=== PATIENT | female | born 1945 | race Caucasian/White ===

== ENCOUNTER 2021-12-16 16:02 | Inpatient (IN) ==
--- NOTE | 2021-12-16 16:28 | Emergency Department Note ---
Impression & Plan Acute confusion, Acute UTI (urinary tract infection) ED Provider Note HISTORY OF PRESENT ILLNESS: Patient is a 76-year-old female presenting with confusion. Patient presents from a personal [facility] living where today she was reportedly difficult to arouse. She from a few days ago and was evaluated and cleared for discharge back to her facility. No reported falls in the last 24 hours. No recent fevers. Patient reportedly is much more confused than her normal self. She denies any chest pain, shortness of breath, nausea or vomiting. ROS: Patient currently confused and is unable to provide accurate information regarding ROS, histories, meds, or allergies. Any information regarding ROS, Past medical or surgical history, social or family history documented below has been obtained from the EMR. Any additional history regarding this cannot be obtained presently due to her medical condition. PHYSICAL EXAM: Constitutional: Patient appears in no acutedistress. HENT: Head: Normocephalic. Ecchymosis to lower lip and chin. Eyes: EOMI, PERRL Mouth/Throat: Mucous membranes moist. Neck: Trachea midline. Neck supple. Cardiovascular: Bradycardic with regular rhythm. No murmurs, rubs or gallops. Intact distal pulses. Pulmonary/Chest: No respiratory distress. Breath sounds clear and equal bilaterally. No wheezes or rales. No chest wall tenderness to palpation. Abdominal: BS +. Abdomen soft, no tenderness, rebound or guarding. Back: No midline spinal tenderness, no paraspinal tenderness, no CVA tenderness. Musculoskeletal: No edema, tenderness or deformity noted. Skin: Warm and dry. No rash, erythema, pallor or cyanosis Psychiatric: Appropriate mood and affect for situation. Neurological: Alert. CN II-XII grossly intact, moving all extremities s pontaneously. MDM: - Vitals signs showed bradycardia. - EKG negative for acute ischemic changes. Shows sinus bradycardia. - Laboratory workup showed leukocytosis (WBC 10.85); stable electrolytes other than hypomagnesemia (Mg 1.5) - UA shows evidence of infection. IV rocephin ordered. - Blood cultures obtained. - CXR negative for acute cardiopulmonary pathology. - [facility] - [facility] ASSESSMENT AND PLAN: Diagnosis: confusion; UTI Plan: admit Past Med/Surg History Social History Smoking Status: Never smoker Allergies Allergies Allergy/AdvReac Type Severity Reaction Status Date / Time latex Allergy Unknown ? Unverified 02/24/21 21:44 hydrocodone AdvReac Mild HALLUCINATI Verified 02/24/21 21:44 ONS Home Meds Home Medications Medication Instructions Recorded Confirmed acetaminophen 650 mg 1,300 mg PO Q8H PRN Pain 12/16/21 12/16/21 tablet,extended release (Arthritis Pain Relief (acetaminophen) ER) aspirin 81 mg tablet,delayed 81 mg PO DAILY 12/16/21 12/16/21 release cetirizine 10 mg tablet 10 mg PO BID 12/16/21 12/16/21 cholecalciferol (vitamin D3) 50 50 mcg PO DAILY 12/16/21 12/16/21 mcg (2,000 unit) tablet (Vitamin D3) clopidogrel 75 mg tablet 75 mg PO DAILY 12/16/21 12/16/21 donepezil 10 mg tablet 10 mg PO DAILY 12/16/21 12/16/21 duloxetine 60 mg capsule,delayed 60 mg PO DAILY 12/16/21 12/16/21 release ezetimibe 10 mg tablet 10 mg PO DAILY 12/16/21 12/16/21 glimepiride 1 mg tablet 1 mg PO DAILY 12/16/21 12/16/21 lisinopril 10 mg tablet 10 mg PO DAILY 12/16/21 12/16/21 melatonin 10 mg sublingual tablet 10 mg sublingual HS 12/16/21 12/16/21 metoprolol succinate 25 mg 25 mg PO DAILY 12/16/21 12/16/21 tablet,extended release 24 hr nitrofurantoin macrocrystal 50 mg 50 mg PO DAILY 12/16/21 12/16/21 capsule oxybutynin chloride 5 mg tablet 5 mg PO DAILY 12/16/21 12/16/21 pantoprazole 40 mg tablet,delayed 40 mg PO DAILY 12/16/21 12/16/21 release pioglitazone 45 mg tablet 45 mg PO DAILY 12/16/21 12/16/21 pravastatin 10 mg tablet 10 mg PO DAILY 12/16/21 12/16/21 Results & Data (ED) Vital Signs Vital Signs - 24 hr 12/16/21 15:57 12/16/21 16:24 12/16/21 16:24 Temperature 36.6 C 36.8 C Temperature Source Oral Oral Pulse Rate 57 L Pulse Rate [Finger] 47 L Pulse Rate from SpO2 Sensor Pulse Rhythm Irregular Pulse Rhythm [Finger] Irregular Pulse Strength Normal Pulse Strength [Finger] Normal Respiratory Rate 19 19 18 Respiratory Effort / Characteristics Non-Labored Spontaneous Respiratory Depth Normal Respiratory Pattern Regular Blood Pressure 181/84 H Blood Pressure [Left Arm] Blood Pressure Mean 116 Blood Pressure Mean [Left Arm] Pulse Oximetry 97 97 97 Oxygen Delivery Method Room Air Room Air Sepsis New/Unexplained Change in Mental Status Yes Sepsis Action Taken by Nursing No Action Required 12/16/21 17:20 12/16/21 18:30 12/16/21 18:45 Temperature Temperature Source Pulse Rate Pulse Rate [Finger] 59 L 67 67 Pulse Rate from SpO2 Sensor Pulse Rhythm Pulse Rhythm [Finger] Irregular Irregular Pulse Strength Pulse Strength [Finger] Respiratory Rate 17 17 17 Respiratory Effort / Characteristics Respiratory Depth Normal Normal Respiratory Pattern Blood Pressure Blood Pressure [Left Arm] 191/102 H 169/98 H Blood Pressure Mean Blood Pressure Mean [Left Arm] 131 121 Pulse Oximetry 98 94 95 Oxygen Delivery Method Sepsis New/Unexplained Change in Mental Status Sepsis Action Taken by Nursing 12/16/21 16:17 12/16/21 16:30 12/16/21 16:45 Temperature Temperature Source Pulse Rate 47 L 51 L 52 L Pulse Rate [Finger] Pulse Rate from SpO2 Sensor Pulse Rhythm Pulse Rhythm [Finger] Pulse Strength Pulse Strength [Finger] Respiratory Rate 20 19 14 Respiratory Effort / Characteristics Respiratory Depth Respiratory Pattern Blood Pressure Blood Pressure [Left Arm] Blood Pressure Mean Blood Pressure Mean [Left Arm] Pulse Oximetry 97 97 Oxygen Delivery Method Sepsis New/Unexplained Change in Mental Status Sepsis Action Taken by Nursing 12/16/21 17:00 12/16/21 17:15 12/16/21 17:15 Temperature Temperature Source Pulse Rate 53 L 64 Pulse Rate [Finger] Pulse Rate from SpO2 Sensor 57 L Pulse Rhythm Pulse Rhythm [Finger] Pulse Strength Pulse Strength [Finger] Respiratory Rate Respiratory Effort / Characteristics Respiratory Depth Respiratory Pattern Blood Pressure 191/102 H Blood Pressure [Left Arm] Blood Pressure Mean 131 Blood Pressure Mean [Left Arm] Pulse Oximetry 94 Oxygen Delivery Method Sepsis New/Unexplained Change in Mental Status Sepsis Action Taken by Nursing 12/16/21 17:30 12/16/21 17:31 12/16/21 17:31 Temperature Temperature Source Pulse Rate 60 60 Pulse Rate [Finger] Pulse Rate from SpO2 Sensor Pulse Rhythm Pulse Rhythm [Finger] Pulse Strength Pulse Strength [Finger] Respiratory Rate Respiratory Effort / Characteristics Respiratory Depth Respiratory Pattern Blood Pressure 169/77 H Blood Pressure [Left Arm] Blood Pressure Mean 107 Blood Pressure Mean [Left Arm] Pulse Oximetry Oxygen Delivery Method Sepsis New/Unexplained Change in Mental Status Sepsis Action Taken by Nursing 12/16/21 17:45 12/16/21 17:45 12/16/21 18:00 Temperature Temperature Source Pulse Rate 76 Pulse Rate [Finger] Pulse Rate from SpO2 Sensor Pulse Rhythm Pulse Rhythm [Finger] Pulse Strength Pulse Strength [Finger] Respiratory Rate Respiratory Effort / Characteristics Respiratory Depth Respiratory Pattern Blood Pressure 169/88 H 154/84 H Blood Pressure [Left Arm] Blood Pressure Mean 115 107 Blood Pressure Mean [Left Arm] Pulse Oximetry Oxygen Delivery Method Sepsis New/Unexplained Change in Mental Status Sepsis Action Taken by Nursing 12/16/21 18:00 12/16/21 18:15 12/16/21 18:17 Temperature Temperature Source Pulse Rate 60 68 Pulse Rate [Finger] Pulse Rate from SpO2 Sensor Pulse Rhythm Pulse Rhythm [Finger] Pulse Strength Pulse Strength [Finger] Respiratory Rate Respiratory Effort / Characteristics Respiratory Depth Respiratory Pattern Blood Pressure 184/93 H Blood Pressure [Left Arm] Blood Pressure Mean 123 Blood Pressure Mean [Left Arm] Pulse Oximetry 97 Oxygen Delivery Method Sepsis New/Unexplained Change in Mental Status Sepsis Action Taken by Nursing 12/16/21 18:17 12/16/21 18:30 12/16/21 18:31 Temperature Temperature Source Pulse Rate 60 63 Pulse Rate [Finger] Pulse Rate from SpO2 Sensor 50 L Pulse Rhythm Pulse Rhythm [Finger] Pulse Strength Pulse Strength [Finger] Respiratory Rate Respiratory Effort / Characteristics Respiratory Depth Respiratory Pattern Blood Pressure 174/65 H Blood Pressure [Left Arm] Blood Pressure Mean 101 Blood Pressure Mean [Left Arm] Pulse Oximetry 94 Oxygen Delivery Method Sepsis New/Unexplained Change in Mental Status Sepsis Action Taken by Nursing 12/16/21 18:31 12/16/21 18:45 12/16/21 18:46 Temperature Temperature Source Pulse Rate 63 60 66 Pulse Rate [Finger] Pulse Rate from SpO2 Sensor Pulse Rhythm Pulse Rhythm [Finger] Pulse Strength Pulse Strength [Finger] Respiratory Rate Respiratory Effort / Characteristics Respiratory Depth Respiratory Pattern Blood Pressure Blood Pressure [Left Arm] Blood Pressure Mean Blood Pressure Mean [Left Arm] Pulse Oximetry Oxygen Delivery Method Sepsis New/Unexplained Change in Mental Status Sepsis Action Taken by Nursing 12/16/21 18:46 12/16/21 19:00 12/16/21 20:05 Temperature Temperature Source Pulse Rate Pulse Rate [Finger] 55 L 57 L Pulse Rate from SpO2 Sensor Pulse Rhythm Pulse Rhythm [Finger] Irregular Pulse Strength Pulse Strength [Finger] Respiratory Rate 19 17 Respiratory Effort / Characteristics Non-Labored Spontaneous Respiratory Depth Normal Respiratory Pattern Blood Pressure 169/98 H Blood Pressure [Left Arm] 164/67 H Blood Pressure Mean 121 Blood Pressure Mean [Left Arm] 99 Pulse Oximetry 98 95 97 Oxygen Delivery Method Room Air Sepsis New/Unexplained Change in Mental Status Sepsis Action Taken by Nursing Laboratory Data Result diagrams: 12/16/21 16:49 12/16/21 16:49 Lab Results 12/16/21 12/16/21 12/16/21 Range/Units 16:30 16:49 16:49 WBC 10.85 H (4.8-10.8) K/ul RBC 3.66 L (3.93-5.22) M/uL Hgb 11.2 L (12.0-16.0) g/dl Hct 34.5 (34.1-44.9) % MCV 94.3 (80.0-100.0) fL MCH 30.6 (25.0-34.0) pg MCHC 32.5 (32.0-36.0) g/dL RDW Std Deviation 46.7 H (36.4-46.3) fL RDW Coeff of Elina 13.6 (11.5-14.5) % Plt Count 290 (130-400) K/uL MPV 8.8 L (9.4-12.3) fL Immature Gran % (Auto) 0.5 % Neut % (Auto) 55.7 % Lymph % (Auto) 34.2 % Mathews % (Auto) 7.7 % Eos % (Auto) 1.4 % Baso % (Auto) 0.5 % Neut # (Auto) 6.05 (1.4-6.5) K/uL Lymph # (Auto) 3.71 H (1.2-3.4) K/uL Mathews # (Auto) 0.84 H (0.24-0.82) K/uL Eos # (Auto) 0.15 (0-0.50) K/uL Baso # (Auto) 0.05 (0-0.2) K/uL Immature Gran # (Auto) 0.05 H (0.00-0.02) K/uL Sodium 138 (136-145) mmol/L Potassium 3.9 (3.5-5.1) mmol/L Chloride 106 (98-107) mmol/L Carbon Dioxide 24 (21-32) mmol/L Anion Gap 8 (3-11) BUN 20 (6-23) mg/dl Creatinine 1.08 (0.6-1.2) mg/dl Est Cr Clr Drug Dosing 38.3 ml/min Est GFR ( Amer) 57.7 ml/min Est GFR (Non-Af Amer) 49.8 ml/min BUN/Creatinine Ratio 18.5 (10-20) Glucose 87 (70-99(Fasting)) mg/dl Lactate (0.4-2.0) mmol/L Calcium 9.3 (8.5-10.1) mg/dl Magnesium 1.5 L (1.7-2.4) mg/dl Total Bilirubin 1.0 (0.2-1.0) mg/dl Direct Bilirubin 0.2 (0-0.2) mg/dl AST 11 L (13-39) U/L ALT 6 L (7-52) U/L Alkaline Phosphatase 65 (34-104) U/L Troponin I High Sens 5.4 (0-14) pg/ml Total Protein 6.9 (6.0-8.3) gm/dl Albumin 3.4 (3.4-5.0) gm/dl Urine Color Yellow Urine Appearance Clear (Clear) Urine pH 8.5 H (4.5-7.5) Ur Specific [place] 1.016 (1.000-1.030) Urine Protein Negative (Negative) Urine Glucose (UA) Negative (Negative) Urine Ketones Trace H (Negative) Urine Blood Negative (Negative) Urine Nitrite Positive A (Negative) Urine Bilirubin Negative (Negative) Urine Urobilinogen Negative (Negative) Ur Leukocyte Esterase Negative (Negative) Urine WBC (Auto) 1-5 (0-5) /hpf Urine RBC (Auto) 0-4 (0-4) /hpf U Hyaline Cast (Auto) 1-5 (0-5) /lpf U Epithel Cells (Auto) 10-20 H (0-5) /lpf Urine Bacteria (Auto) 4+ H (Negative) SARS-CoV-2 (PCR) (Negative) Influenza Type A (PCR) (Neg) Influenza Type B (PCR) (Neg) RSV (RT-PCR) (Neg) 12/16/21 12/16/21 Range/Units 16:49 16:52 WBC (4.8-10.8) K/ul RBC (3.93-5.22) M/uL Hgb (12.0-16.0) g/dl Hct (34.1-44.9) % MCV (80.0-100.0) fL MCH (25.0-34.0) pg MCHC (32.0-36.0) g/dL RDW Std Deviation (36.4-46.3) fL RDW Coeff of Elina (11.5-14.5) % Plt Count (130-400) K/uL MPV (9.4-12.3) fL Immature Gran % (Auto) % Neut % (Auto) % Lymph % (Auto) % Mathews % (Auto) % Eos % (Auto) % Baso % (Auto) % Neut # (Auto) (1.4-6.5) K/uL Lymph # (Auto) (1.2-3.4) K/uL Mathews # (Auto) (0.24-0.82) K/uL Eos # (Auto) (0-0.50) K/uL Baso # (Auto) (0-0.2) K/uL Immature Gran # (Auto) (0.00-0.02) K/uL Sodium (136-145) mmol/L Potassium (3.5-5.1) mmol/L Chloride (98-107) mmol/L Carbon Dioxide (21-32) mmol/L Anion Gap (3-11) BUN (6-23) mg/dl Creatinine (0.6-1.2) mg/dl Est Cr Clr Drug Dosing ml/min Est GFR ( Amer) ml/min Est GFR (Non-Af Amer) ml/min BUN/Creatinine Ratio (10-20) Glucose (70-99(Fasting)) mg/dl Lactate 1.3 (0.4-2.0) mmol/L Calcium (8.5-10.1) mg/dl Magnesium (1.7-2.4) mg/dl Total Bilirubin (0.2-1.0) mg/dl Direct Bilirubin (0-0.2) mg/dl AST (13-39) U/L ALT (7-52) U/L Alkaline Phosphatase (34-104) U/L Troponin I High Sens (0-14) pg/ml Total Protein (6.0-8.3) gm/dl Albumin (3.4-5.0) gm/dl Urine Color Urine Appearance (Clear) Urine pH (4.5-7.5) Ur Specific [place] (1.000-1.030) Urine Protein (Negative) Urine Glucose (UA) (Negative) Urine Ketones (Negative) Urine Blood (Negative) Urine Nitrite (Negative) Urine Bilirubin (Negative) Urine Urobilinogen (Negative) Ur Leukocyte Esterase (Negative) Urine WBC (Auto) (0-5) /hpf Urine RBC (Auto) (0-4) /hpf U Hyaline Cast (Auto) (0-5) /lpf U Epithel Cells (Auto) (0-5) /lpf Urine Bacteria (Auto) (Negative) SARS-CoV-2 (PCR) NEGATIVE (Negative) Influenza Type A (PCR) Negative (Neg) Influenza Type B (PCR) Negative (Neg) RSV (RT-PCR) Negative (Neg) Administered Medications Magnesium Sulfate/Dextrose (Magnesium Sulfate / D5w) 1 gm in 100 mls @ 50 mls/hr IV Q2H JOLENE Stop: 12/16/21 23:14 Last Admin: 12/16/21 19:32 Dose: 50 mls/hr Documented By: YINKA Sodium Chloride (Nss 1000ml) 1,000 mls @ 60 mls/hr IV .[id number] Stop: 12/17/21 11:53 Last Admin: 12/16/21 19:33 Dose: 60 mls/hr Documented By: YINKA Discontinued Medications Ceftriaxone Sodium (Rocephin) 1,000 mg in 50 mls @ 100 mls/hr IV NOW STA Stop: 12/16/21 17:52 Last Infusion: 12/16/21 18:10 Dose: 0 mls/hr Documented By: Admin: 12/16/21 17:36 Dose: 100 mls/hr Documented By: YINKA Cefepime HCl (Maxipime) 2,000 mg in 20 mls @ 5 mls/min IV NOW STA; Protocol Stop: 12/16/21 19:23 Last Admin: 12/16/21 19:32 Dose: 5 mls/min Documented By: YINKA Imaging Data Radiologist's Impression: Chest X-Ray 12/16/21 16:24 XR chest 1V portable CLINICAL HISTORY: Confusion. COMPARISON STUDY: Chest radiograph February 24, 2021. FINDINGS: Lung volumes are normal. Lungs are clear. There is no pneumothorax or pleural effusion. Cardiac size is normal. Mediastinal contours are normal. There is no evidence for pulmonary edema. Dextroscoliosis of the thoracic spine is unchanged. IMPRESSION: No acute cardiopulmonary findings. ACT 112: Negative or not required by law. Electronically signed by: Graham Orozco M.D. 12/16/2021 4:44 PM Discharge Plan Visit Data Chief Complaint: Fall ED Provider: Luz Brooks Discharge Problem: Acute confusion, Acute UTI (urinary tract infection) Patient Disposition: Admitted As Inpatient Forms Stand Alone Forms: [facility] Prescriptions Prescriptions: No Action donepezil 10 mg Tablet 10 mg PO DAILY clopidogrel 75 mg Tablet 75 mg PO DAILY aspirin 81 mg Tablet,Delayed Release (Dr/Ec) 81 mg PO DAILY glimepiride 1 mg Tablet 1 mg PO DAILY lisinopril 10 mg Tablet 10 mg PO DAILY metoprolol succinate 25 mg Tablet Extended Release 24 Hr 25 mg PO DAILY ezetimibe 10 mg Tablet 10 mg PO DAILY duloxetine 60 mg Capsule,Delayed Release(Dr/Ec) 60 mg PO DAILY melatonin 10 mg Tablet, Sublingual 10 mg SUBLINGUAL HS nitrofurantoin macrocrystal 50 mg Capsule 50 mg PO DAILY Rx Instructions: must administer with a meal/food pantoprazole 40 mg Tablet,Delayed Release (Dr/Ec) 40 mg PO DAILY oxybutynin chloride 5 mg Tablet 5 mg PO DAILY cetirizine 10 mg Tablet 10 mg PO BID pioglitazone 45 mg Tablet 45 mg PO DAILY acetaminophen [Arthritis Pain Relief (acetam)] 650 mg Tablet Extended Release 1,300 mg PO Q8H MDD 3 gm APAP PRN (Reason: Pain) pravastatin 10 mg Tablet 10 mg PO DAILY cholecalciferol (vitamin D3) [Vitamin D3] 50 mcg (2,000 unit) Tablet 50 mcg PO DAILY Referrals Referrals: [facility] [Primary Care Provider] -
--- NOTE | 2021-12-16 16:45 | XRay Report ---
XR chest 1V portable CLINICAL HISTORY: Confusion. COMPARISON STUDY: Chest radiograph February 24, 2021. FINDINGS: Lung volumes are normal. Lungs are clear. There is no pneumothorax or pleural effusion. Car diac size is normal. Mediastinal contours are normal. There is no evidence for pulmonary edema. Dextr oscoliosis of the thoracic spine is unchanged. IMPRESSION: No acute cardiopulmonary findings. ACT 112: Negative or not required by law. Electronically signed by: Graham Orozco M.D. 12/16/2021 4:44 PM
[2021-12-16 17:01] LABS: Appearance Urine Clear (Clear); Bacteria Urine Automated 4+ (Negative); Bilirubin Urine Negative (Negative); Blood Urine Negative (Negative); Color Urine Yellow; Glucose Urine UA Negative (Negative); Ketones Urine Trace (Negative); Leukocyte Esterase Urine Negative (Negative); Nitrite Urine Positive (Negative); Protein Urine Negative (Negative); RBC Urine Automated 0-4 /hpf (0-4); Specific Gravity Urine 1.016 (1.000-1.030); Urobilinogen Urine Negative (Negative); pH Urine 8.5 (4.5-7.5)
[2021-12-16 17:07] LABS: Basophils # (auto) 0.05 K/uL (0-0.2); Basophils % (auto) 0.5 %; Eosinophils # (auto) 0.15 K/uL (0-0.50); Eosinophils % (auto) 1.4 %; Hematocrit (blood only) 34.5 % (34.1-44.9); Hemoglobin 11.2 g/dl (12.0-16.0); Immature Granulocytes # (auto) 0.05 K/uL (0.00-0.02); Immature Granulocytes % (auto) 0.5 %; Lymphocytes # (auto) 3.71 K/uL (1.2-3.4); Lymphocytes % (auto) 34.2 %; Mean Corpuscular Hemoglobin 30.6 pg (25.0-34.0); Mean Corpuscular Hgb Conc 32.5 g/dL (32.0-36.0); Mean Corpuscular Volume 94.3 fL (80.0-100.0); Mean Platelet Volume 8.8 fL (9.4-12.3); Monocytes # (auto) 0.84 K/uL (0.24-0.82); Monocytes % (auto) 7.7 %; Neutrophils # (auto) 6.05 K/uL (1.4-6.5); Neutrophils % (auto) 55.7 %; Platelet Count 290 K/uL (130-400); RDW Coefficient of Variation 13.6 % (11.5-14.5); RDW Standard Deviation 46.7 fL (36.4-46.3); Red Blood Count 3.66 M/uL (3.93-5.22); White Blood Count 10.85 K/ul (4.8-10.8)
[2021-12-16] MEDS ORDERED: cefTRIAXone SODIUM 1,000 MG/50 ML BAG IV STA (17:23)
[2021-12-16 17:37] LABS: Influenza A virus by PCR Negative (Neg); Influenza B virus by PCR Negative (Neg); RSV by PCR Negative (Neg); SARS CoV2 RNA(COVID-19) InHosp NEGATIVE (Negative)
[2021-12-16 17:51] LABS: Troponin I High Sensitivity 5.4 pg/ml (0-14)
[2021-12-16 18:13] LABS: Albumin Level 3.4 gm/dl (3.4-5.0); BUN Creatinine Ratio 18.5 (10-20); Bilirubin Direct 0.2 mg/dl (0-0.2); Calcium 9.3 mg/dl (8.5-10.1); Creatinine Clr Calc Pharmacy 38.3 ml/min; Est GFR (African American) 57.7 ml/min; Est GFR (Non-African American) 49.8 ml/min; Magnesium 1.5 mg/dl (1.7-2.4); Potassium 3.9 mmol/L (3.5-5.1); Total Protein 6.9 gm/dl (6.0-8.3)
[2021-12-16] MEDS ORDERED: SODIUM CHLORIDE 0.9% 1000ML 1,000 ML IV ONE (19:14)
[2021-12-16] MEDS ORDERED: CEFEPIME 2,000 MG/20 ML VIAL IV STA (19:20)
[2021-12-16] MEDS: MAGNESIUM SULFATE / D5W 1 GM/100 ML BAG IV SCH ×2 (19:32→22:11)
[2021-12-16] MEDS ORDERED: ACETAMINOPHEN 325 MG TAB PO STA (19:59)
[2021-12-16] MEDS ORDERED: OPTIRAY 350 100ml IV ONE (20:39)
--- NOTE | 2021-12-16 20:46 | CT Scan Report ---
CT OF THE HEAD WITHOUT CONTRAST CLINICAL HISTORY: Headache after fall. COMPARISON STUDY: Head CT February 24, 2021. MRI of the brain December 30, 2010. CT DOSE: 729.78 mGycm TECHNIQUE: Helical axial images of the head were obtained without IV contrast. Automated exposure con trol was utilized for the study. A dose lowering technique was utilized adhering to the principles o f ALARA. FINDINGS: This study is mildly, must by motion artifact. No acute intracranial hemorrhage, midline sh ift or mass effect is present. Ventricular system is stable. Basal cisterns are patent. White matter hypodensities are similar to prior exam and favor small vessel disease. 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 No calvarial fracture is identified. Left-sided sinus mucosal thickening is present . IMPRESSION: 1. No acute intracranial findings. Exam mildly compromised by motion artifact. 2. No acute calvarial fracture. ACT 112: Negative or not required by law. Electronically signed by: Graham Orozco M.D. 12/16/2021 8:44 PM
[2021-12-16] MEDS ORDERED: lisinopril 10 MG TAB PO STA (20:55)
--- NOTE | 2021-12-16 21:29 | History & Physical Report ---
Date of Service December 16, 2021 Assessment & Plan (1) Encephalopathy: Plan: History dementia Patient currently mentating well after initial intervention at the ER Multifactorial : Uncontrolled hypertension Recurrent diverticulitis, no sepsis for now Recurrent UTIs on chronic Macrodantin suppression Rx Recent head trauma hx CAD hyperlipidemia, on statin Rx DM2 on oral medications, well-controlled as of recent hemoglobin A1c of 7 last July 2021 Chronic anemia, hemoglobin at baseline Medical telemetry Titrate home BP meds Zosyn for recurrent diverticulitis, clear liquid diet for now GI consult Re: Recurrent diverticulitis Basal insulin adjusted for clear liquid diet, ISS BG goal 1 10-1 40, carb count coverage, update hemoglobin A1c DVT prophylaxis. SCDs for now given recent head trauma causing facial bruising; Lovenox subcu, resume home antiplatelet Rx if hemoglobin stable DNR as per patient's prior directives as per daughter Ms. Kenyetta Cha. She requests updates from providers through [phone]. Text document was generated using [employer] voice recognition software. It may contain grammatical or spelling errors. Kindly contact undersigned for clarification of any documentation item in question. History of Present Illness Chief Complaint: Decreased responsiveness as per records [facility] Bond History obtained from patient, family, and records. Patient is a fair historian. Medical history significant for CAD, hypertension, hyperlipidemia, DM2 on oral medications, recurrent UTIs on chronic Macrodantin Rx suppression Rx, chronic anemia (baseline hemoglobin of 11), recurrent diverticulitis, dementia. Last confinement 2004 for acute diverticulitis status post antibiotic Rx. Patient had a fall a few days ago resulting in facial trauma. Achy headache symptoms. 2 days ago, patient noted achy lower abdominal pain. Patient denies dysuria. No chest pain, no shortness of breath, no nausea, no vomiting. Patient noted to be more confused than usual at skilled nursing. Sent to the ER for evaluation. Highest SBP at the ER 190s. IV ceftriaxone administered at the ER for possible UTI. Medical History as above Surgical History : Umbilical hernia repair, section, rectal sphincter surgery, uterine polyp removal, vitreous detachment surgery of the right eye Family History :Heart disease Personal/Social history : Smoker, no EtOH intake, skilled nursing resident Allergies Allergy/AdvReac Type Severity Reaction Status Date / Time tomato Allergy Mild Rash Verified 12/17/21 05:31 latex Allergy Unknown ? Unverified 02/24/21 21:44 haloperidol [From Haldol] AdvReac Severe vfib Verified 12/17/21 05:32 acetaminophen [From Vicodin] AdvReac Intermediate hallucinati Verified 12/17/21 05:31 ons hydrocodone AdvReac Mild HALLUCINATI Verified 02/24/21 21:44 ONS niacin AdvReac Mild Flushing Verified 12/17/21 05:31 Home Medications Medication Instructions Recorded Confirmed Type acetaminophen 650 mg 1,300 mg PO Q8H PRN Pain 12/16/21 12/16/21 History tablet,extended release (Arthritis Pain Relief (acetaminophen) ER) aspirin 81 mg tablet,delayed 81 mg PO DAILY 12/16/21 12/16/21 History release cetirizine 10 mg tablet 10 mg PO BID 12/16/21 12/16/21 History cholecalciferol (vitamin D3) 50 50 mcg PO DAILY 12/16/21 12/16/21 History mcg (2,000 unit) tablet (Vitamin D3) clopidogrel 75 mg tablet 75 mg PO DAILY 12/16/21 12/16/21 History donepezil 10 mg tablet 10 mg PO DAILY 12/16/21 12/16/21 History duloxetine 60 mg capsule,delayed 60 mg PO DAILY 12/16/21 12/16/21 History release ezetimibe 10 mg tablet 10 mg PO DAILY 12/16/21 12/16/21 History glimepiride 1 mg tablet 1 mg PO DAILY 12/16/21 12/16/21 History lisinopril 10 mg tablet 10 mg PO DAILY 12/16/21 12/16/21 History melatonin 10 mg sublingual tablet 10 mg sublingual HS 12/16/21 12/16/21 History metoprolol succinate 25 mg 25 mg PO DAILY 12/16/21 12/16/21 History tablet,extended release 24 hr nitrofurantoin macrocrystal 50 mg 50 mg PO DAILY 12/16/21 12/16/21 History capsule oxybutynin chloride 5 mg tablet 5 mg PO DAILY 12/16/21 12/16/21 History pantoprazole 40 mg tablet,delayed 40 mg PO DAILY 12/16/21 12/16/21 History release pioglitazone 45 mg tablet 45 mg PO DAILY 12/16/21 12/16/21 History pravastatin 10 mg tablet 10 mg PO DAILY 12/16/21 12/16/21 History Past Med/Surg History Social History Smoking Status: Former smoker Second Hand Exposure: No; Do You Dip or Chew Tobacco: No; Tobacco Cessation Education Requested by Patient: No Hx Alcohol Use: No Hx Substance Use: No Preferred Language: Citizen [place] Communication Ability: Effective Pattern Cleaner Required: No Beliefs That Will Affect Care: None Current Living Situation: [facility] Other Information That Helps Us Care for You: No Feels Safe at Home: Yes Assistive Devices: Glasses and Walker Review of Systems Review of Systems: As per HPI, all other systems reviewed and negative Physical Exam Physical Exam: GENERAL: Comfortable, demented, pleasant, no respiratory distress SKIN: Normal color, warm HEENT: Wearing sunglasses, ecchymosis around mouth, dry buccal mucosa NECK : Supple, no tenderness CHEST : CTA, no tenderness HEART : RRR, no obvious murmurs ABDOMEN: Some distention, hypogastric tenderness EXTREMITIES : No LE swelling/tenderness, no other conspicuous deformities noted NEUROLOGIC : Demented, no facial asymmetry, no other gross focality Results & Data Results & Data ([facility]) Vital Signs (Past 12 Hours) Vital Signs Temp Pulse Pulse Resp BP BP Pulse Ox 12/16/21 21:00 60 19 100 12/16/21 20:04 54 L 12/16/21 20:04 164/67 H 12/16/21 20:01 193/104 H 12/16/21 20:01 67 12/16/21 20:00 68 12/16/21 19:31 58 L 12/16/21 19:30 50 L 15 12/16/21 19:15 178/79 H 12/16/21 19:15 55 L 20 12/16/21 19:00 60 20 12/16/21 19:00 190/71 H 12/16/21 20:05 57 L 17 164/67 H 97 12/16/21 19:00 55 L 19 95 12/16/21 18:46 169/98 H 98 12/16/21 18:46 66 12/16/21 18:45 60 12/16/21 18:31 63 12/16/21 18:31 174/65 H 12/16/21 18:30 63 94 12/16/21 18:17 60 12/16/21 18:17 184/93 H 12/16/21 18:15 68 97 12/16/21 18:00 60 12/16/21 18:00 154/84 H 12/16/21 17:45 76 12/16/21 17:45 169/88 H 12/16/21 17:31 169/77 H 12/16/21 17:31 60 12/16/21 17:30 60 12/16/21 17:15 64 94 12/16/21 17:15 191/102 H 12/16/21 17:00 53 L 12/16/21 16:45 52 L 14 97 12/16/21 16:30 51 L 19 12/16/21 16:17 47 L 20 97 12/16/21 18:45 67 17 169/98 H 95 12/16/21 18:30 67 17 94 12/16/21 17:20 59 L 17 191/102 H 98 12/16/21 16:24 36.8 C 47 L 18 97 12/16/21 16:24 19 97 12/16/21 15:57 36.6 C 57 L 19 181/84 H 97 O2 Del Method 12/16/21 21:00 12/16/21 20:04 12/16/21 20:04 12/16/21 20:01 12/16/21 20:01 12/16/21 20:00 12/16/21 19:31 12/16/21 19:30 12/16/21 19:15 12/16/21 19:15 12/16/21 19:00 12/16/21 19:00 12/16/21 20:05 12/16/21 19:00 Room Air 12/16/21 18:46 12/16/21 18:46 12/16/21 18:45 12/16/21 18:31 12/16/21 18:31 12/16/21 18:30 12/16/21 18:17 12/16/21 18:17 12/16/21 18:15 12/16/21 18:00 12/16/21 18:00 12/16/21 17:45 12/16/21 17:45 12/16/21 17:31 12/16/21 17:31 12/16/21 17:30 12/16/21 17:15 12/16/21 17:15 12/16/21 17:00 12/16/21 16:45 12/16/21 16:30 12/16/21 16:17 12/16/21 18:45 12/16/21 18:30 12/16/21 17:20 12/16/21 16:24 12/16/21 16:24 Room Air 12/16/21 15:57 Room Air Laboratory Results Laboratory Results WBC 10.85 K/ul (4.8-10.8) H 12/16/21 16:49 RBC 3.66 M/uL (3.93-5.22) L 12/16/21 16:49 Hgb 11.2 g/dl (12.0-16.0) L 12/16/21 16:49 Hct 34.5 % (34.1-44.9) 12/16/21 16:49 MCV 94.3 fL (80.0-100.0) 12/16/21 16:49 MCH 30.6 pg (25.0-34.0) 12/16/21 16:49 MCHC 32.5 g/dL (32.0-36.0) 12/16/21 16:49 RDW Std Deviation 46.7 fL (36.4-46.3) H 12/16/21 16:49 RDW Coeff of Elina 13.6 % (11.5-14.5) 12/16/21 16:49 Plt Count 290 K/uL (130-400) 12/16/21 16:49 MPV 8.8 fL (9.4-12.3) L 12/16/21 16:49 Immature Gran % (Auto) 0.5 % 12/16/21 16:49 Neut % (Auto) 55.7 % 12/16/21 16:49 Lymph % (Auto) 34.2 % 12/16/21 16:49 [place] % (Auto) 7.7 % 12/16/21 16:49 Eos % (Auto) 1.4 % 12/16/21 16:49 Baso % (Auto) 0.5 % 12/16/21 16:49 Neut # (Auto) 6.05 K/uL (1.4-6.5) 12/16/21 16:49 Lymph # (Auto) 3.71 K/uL (1.2-3.4) H 12/16/21 16:49 [place] # (Auto) 0.84 K/uL (0.24-0.82) H 12/16/21 16:49 Eos # (Auto) 0.15 K/uL (0-0.50) 12/16/21 16:49 Baso # (Auto) 0.05 K/uL (0-0.2) 12/16/21 16:49 Immature Gran # (Auto) 0.05 K/uL (0.00-0.02) H 12/16/21 16:49 Sodium 138 mmol/L (136-145) 12/16/21 16:49 Potassium 3.9 mmol/L (3.5-5.1) 12/16/21 16:49 Chloride 106 mmol/L (98-107) 12/16/21 16:49 Carbon Dioxide 24 mmol/L (21-32) 12/16/21 16:49 Anion Gap 8 (3-11) 12/16/21 16:49 BUN 20 mg/dl (6-23) 12/16/21 16:49 Creatinine 1.08 mg/dl (0.6-1.2) 12/16/21 16:49 Est Cr Clr Drug Dosing 38.3 ml/min 12/16/21 16:49 Est GFR ( Amer) 57.7 ml/min 12/16/21 16:49 Est GFR (Non-Af Amer) 49.8 ml/min 12/16/21 16:49 BUN/Creatinine Ratio 18.5 (10-20) 12/16/21 16:49 Glucose 87 mg/dl (70-99(Fasting)) 12/16/21 16:49 Lactate 1.3 mmol/L (0.4-2.0) 12/16/21 16:49 Calcium 9.3 mg/dl (8.5-10.1) 12/16/21 16:49 Magnesium 1.5 mg/dl (1.7-2.4) L 12/16/21 16:49 Total Bilirubin 1.0 mg/dl (0.2-1.0) 12/16/21 16:49 Direct Bilirubin 0.2 mg/dl (0-0.2) 12/16/21 16:49 AST 11 U/L (13-39) L 12/16/21 16:49 ALT 6 U/L (7-52) L 12/16/21 16:49 Alkaline Phosphatase 65 U/L (34-104) 12/16/21 16:49 Troponin I High Sens 5.4 pg/ml (0-14) 12/16/21 16:49 Total Protein 6.9 gm/dl (6.0-8.3) 12/16/21 16:49 Albumin 3.4 gm/dl (3.4-5.0) 12/16/21 16:49 Urine Color Yellow 12/16/21 16:30 Urine Appearance Clear (Clear) 12/16/21 16:30 Urine pH 8.5 (4.5-7.5) H 12/16/21 16:30 Ur Specific [place] 1.016 (1.000-1.030) 12/16/21 16:30 Urine Protein Negative (Negative) 12/16/21 16:30 Urine Glucose (UA) Negative (Negative) 12/16/21 16:30 Urine Ketones Trace (Negative) H 12/16/21 16:30 Urine Blood Negative (Negative) 12/16/21 16:30 Urine Nitrite Positive (Negative) A 12/16/21 16:30 Urine Bilirubin Negative (Negative) 12/16/21 16:30 Urine Urobilinogen Negative (Negative) 12/16/21 16:30 Ur Leukocyte Esterase Negative (Negative) 12/16/21 16:30 Urine WBC (Auto) 1-5 /hpf (0-5) 12/16/21 16:30 Urine RBC (Auto) 0-4 /hpf (0-4) 12/16/21 16:30 U Hyaline Cast (Auto) 1-5 /lpf (0-5) 12/16/21 16:30 U Epithel Cells (Auto) 10-20 /lpf (0-5) H 12/16/21 16:30 Urine Bacteria (Auto) 4+ (Negative) H 12/16/21 16:30 SARS-CoV-2 (PCR) NEGATIVE (Negative) 12/16/21 16:52 Influenza Type A (PCR) Negative (Neg) 12/16/21 16:52 Influenza Type B (PCR) Negative (Neg) 12/16/21 16:52 RSV (RT-PCR) Negative (Neg) 12/16/21 16:52 Impressions Chest X-Ray 12/16/21 16:24 XR chest 1V portable CLINICAL HISTORY: Confusion. COMPARISON STUDY: Chest radiograph February 24, 2021. FINDINGS: Lung volumes are normal. Lungs are clear. There is no pneumothorax or pleural effusion. Cardiac size is normal. Mediastinal contours are normal. There is no evidence for pulmonary edema. Dextroscoliosis of the thoracic spine is unchanged. IMPRESSION: No acute cardiopulmonary findings. ACT 112: Negative or not required by law. Electronically signed by: Graham Orzoco M.D. 12/16/2021 4:[address] 12/16/21 19:58 CT OF THE HEAD WITHOUT CONTRAST CLINICAL HISTORY: Headache after fall. COMPARISON STUDY: Head CT February 24, 2021. MRI of the brain December 30, 2010. CT DOSE: 729.78 mGycm TECHNIQUE: Helical axial images of the head were obtained without IV contrast. Automated exposure control was utilized for the study. A dose lowering technique was utilized adhering to the principles of ALARA. FINDINGS: This study is mildly, must by motion artifact. No acute intracranial hemorrhage, midline shift or mass effect is present. Ventricular system is stable. Basal cisterns are patent. White matter hypodensities are similar to p rior exam and favor small vessel disease. 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 No calvarial fracture is identified. Left-sided sinus mucosal thickening is present. IMPRESSION: 1. No acute intracranial findings. Exam mildly compromised by motion artifact. 2. No acute calvarial fracture. ACT 112: Negative or not required by law. Electronically signed by: Graham Orozco M.D. 12/16/2021 8:[address] head: 1. No acute intracranial findings. Exam mildly compromised by motion artifact. 2. No acute calvarial fracture. CT abdomen pelvis: 1. Colonic diverticulosis with wall thickening with associated inflammation of the descending colon. The findings favor acute diverticulitis. Small amount of associated loculated fluid without well-defined abscess. No free air. A follow up CT of the abdomen and pelvis with IV and oral contrast in one month to ensure resolution is recommended. 2. Apparent caliber change within the cecum. This is likely related to the ileocecal valve. An underlying lesion is considered less likely. This should be assessed on follow-up abdominal CT. 3. No acute traumatic findings identified within the abdomen or pelvis. 4. Cholelithiasis. 5. Trace right pleural effusion. EKG as per my interpretation : Rate 60, NSR, LAD, LAFB, incomplete RBBB, no ischemia, low voltage
--- NOTE | 2021-12-16 21:32 | CT Scan Report ---
CT OF THE ABDOMEN AND PELVIS WITH CONTRAST CLINICAL HISTORY: Left-sided abdominal pain. Fall. COMPARISON STUDY: CT of the abdomen and pelvis December 21, 2007. TECHNIQUE: Following IV administration of 87 mL of Optiray, axial images of the abdomen and pelvis we re obtained from the lung bases to the proximal femurs. Images were reviewed in the axial, sagittal, and coronal planes. IV contrast was administered without complication. Automated exposure control wa s utilized for the study. A dose lowering technique was utilized adhering to the principles of ALARA . CT DOSE: 922.96 mGycm FINDINGS: Visualized portions of the lung bases are unremarkable with the exception of a trace right pleural effusion. There is a small hiatal hernia. No pneumatosis, free air or portal venous gas is pr esent. Calcified granuloma is within the liver and spleen are noted. There are gallstones within the gallbladder. No evidence for acute cholecystitis. The adrenal glands and pancreas are unremarkable. T here is no hydronephrosis. Moderate renal cortical thinning is noted. 2.2 cm right renal cyst is pres ent. A few subcentimeter renal lesions are too small to characterize. There is no evidence for a quiana l obstruction. Colonic diverticulosis is noted. There is wall thickening with infiltration adjacent t o the descending colon. The colon appears adherent to the anterior abdominal wall. There is a small a mount of associated loculated fluid. No extraluminal gas is present. There is no drainable fluid slava ection. Apparent caliber change within the cecum, on axial image 256 of 456 is likely due to the ileo cecal valve. An underlying lesion is considered less likely. There is no abdominal or pelvic lymphade nopathy. Left hip arthroplasty is noted. No acute fractures within the lumbar spine, pelvis or hips a re identified. There are multiple old lower thoracic and lumbar spine compression fractures. IMPRESSION: 1. Colonic diverticulosis with wall thickening with associated inflammation of the descending colon. The findings favor acute diverticulitis. Small amount of associated loculated fluid without well-defi charley abscess. No free air. A follow up CT of the abdomen and pelvis with IV and oral contrast in one m ont to ensure resolution is recommended. 2. Apparent caliber change within the cecum. This is likely related to the ileocecal valve. An underl sarah lesion is considered less likely. This should be assessed on follow-up abdominal CT. 3. No acute traumatic findings identified within the abdomen or pelvis. 4. Cholelithiasis. 5. Trace right pleural effusion. ACT 112: Negative or not required by law. Electronically signed by: Graham Orozco M.D. 12/16/2021 9:30 PM
[2021-12-16] MEDS ORDERED: metroNIDAZOLE 500 MG/100 ML BAG IV STA (21:40)
[2021-12-17] MEDS ORDERED: GLUCAGON FOR INJ 1 MG VIAL SQ PRN (00:59)
[2021-12-17] MEDS ORDERED: GLUCOSE 40% GEL 15 GM TUBE PO PRN (00:59)
[2021-12-17] MEDS ORDERED: CARBOHYDRATES FOR HYPOGLYCEMIA PO PRN (00:59)
[2021-12-17] MEDS ORDERED: GLUCOSE 10 TAB/TUBE PO PRN (00:59)
[2021-12-17] MEDS ORDERED: PROMETHAZINE HCL 6.25 MG in SODIUM CHLORIDE 0.9% 50 ML IV PRN (00:59)
[2021-12-17] MEDS ORDERED: DEXTROSE 50% 50 ML SYRINGE IV PRN (00:59)
[2021-12-17] MEDS: INSULIN ASPART PER UNIT SC SCH ×5 (03:06→21:09)
[2021-12-17] MEDS ORDERED: metroNIDAZOLE 500 MG/100 ML BAG IV SCH (06:00)
[2021-12-17] MEDS ORDERED: PIPERACILLIN/TAZOBACTAM 3.375 GM in DEXTROSE 5% 100 ML IV ONE (06:15)
[2021-12-17 06:35] LABS: Basophils # (auto) 0.05 K/uL (0-0.2); Basophils % (auto) 0.6 %; Eosinophils # (auto) 0.19 K/uL (0-0.50); Eosinophils % (auto) 2.2 %; Hematocrit (blood only) 35.8 % (34.1-44.9); Hemoglobin 11.7 g/dl (12.0-16.0); Immature Granulocytes # (auto) 0.04 K/uL (0.00-0.02); Immature Granulocytes % (auto) 0.5 %; Lymphocytes # (auto) 3.14 K/uL (1.2-3.4); Lymphocytes % (auto) 35.6 %; Mean Corpuscular Hemoglobin 30.6 pg (25.0-34.0); Mean Corpuscular Hgb Conc 32.7 g/dL (32.0-36.0); Mean Corpuscular Volume 93.7 fL (80.0-100.0); Monocytes # (auto) 0.86 K/uL (0.24-0.82); Monocytes % (auto) 9.8 %; Neutrophils # (auto) 4.54 K/uL (1.4-6.5); Neutrophils % (auto) 51.3 %; Platelet Count 273 K/uL (130-400); RDW Coefficient of Variation 13.7 % (11.5-14.5); RDW Standard Deviation 46.5 fL (36.4-46.3); Red Blood Count 3.82 M/uL (3.93-5.22); White Blood Count 8.82 K/ul (4.8-10.8)
[2021-12-17 07:00] LABS: BUN Creatinine Ratio 17.5 (10-20); Calcium 8.9 mg/dl (8.5-10.1); Creatinine Clr Calc Pharmacy 40.1 ml/min; Est GFR (African American) 61.2 ml/min; Est GFR (Non-African American) 52.8 ml/min; Magnesium 2.1 mg/dl (1.7-2.4); Potassium 3.5 mmol/L (3.5-5.1)
[2021-12-17 08:12] LABS: Estimated Average Glucose 140 mg/dl; Hemoglobin A1C 6.5 % (4.5-5.6)
[2021-12-17] MEDS ORDERED: cefTRIAXone SODIUM 1,000 MG in DEXTROSE 5% 50 ML IV SCH (09:00)
[2021-12-17] MEDS: ASPIRIN 81 MG ECTAB PO SCH (10:03)
[2021-12-17] MEDS: DONEPEZIL HCL 10 MG TAB PO SCH (10:03)
[2021-12-17] MEDS: CLOPIDOGREL BISULFATE 75 MG TAB PO SCH (10:03)
[2021-12-17] MEDS: CETIRIZINE HCL 10 MG TABLET PO SCH ×2 (10:03→21:01)
--- NOTE | 2021-12-17 10:03 | Gastrointestinal Consultation ---
Date of Consultation December 17, 2021 Assessment & Plan (1) Diverticulitis large intestine: 76 year old female with history of HTN, dyslipidemia, T2DM, CAD, recurrent UTIs on chronic ABX, chronic anemia (baseline hemoglobin of 11), recurrent diverticulitis, dementia admitted w/ confusion. She has abnormal imaging w caliber change at the cecum and suspected descending colon diverticulitis Agree w/ IV ABX while admitted, can convert to PO at discharge for a total of 10 days of ABX therapy w/ Cipro/Flagyl Colonoscopy discussed, pt defers but would let us know if she changed her mind Low residue diet as tolerated Can advance to regular diet in 3-4 weeks time as clinically she feels well Supervising Physician Co-Signing Physician Notes I have seen and examined the patient and discussed the management with BEVERLY Sotomayor. Wearing dark glasses, exam as above. Agree with further plan of care as documented. She declined a colonoscopy at this time. History of Present Illness Reason for Consultation: diverticulitis Requesting Physician: Jose Attending Physician: Akhil Garcia MD History of Present Illness 76 year old female with history of CAD, hypertension, hyperlipidemia, DM2 on oral medications, recurrent UTIs on chronic Macrodantin Rx suppression Rx, chronic anemia (baseline hemoglobin of 11), recurrent diverticulitis, dementia admitted through the ED w/ confusion. GI asked to evaluate for diverticulitis. Pt was seen and evaluated, chart reviewed. She is awake, able to identify herself but other history if limited. She tells me she is feeling well. Denies abd pain. No nausea, vomiting. No diarrhea/constipation. She tells me she has never had a colonoscopy and does not want one. CTAP 2021: Colonic diverticulosis with wall thickening with associated inflammation of the descending colon. The findings favor acute diverticulitis. Small amount of associated loculated fluid without well-defined abscess. No free air. A follow up CT of the abdomen and pelvis with IV and oral contrast in one month to ensure resolution is recommended. 2. Apparent caliber change within the cecum. This is likely related to the ileocecal valve. An underlying lesion is considered less likely. This should be assessed on follow-up abdominal CT. 3. No acute traumatic findings identified within the abdomen or pelvis. 4. Cholelithiasis. 5. Trace right pleural effusion. Allergies Allergy/AdvReac Type Severity Reaction Status Date / Time tomato Allergy Mild Rash Verified 12/17/21 05:31 latex Allergy Unknown ? Unverified 02/24/21 21:44 haloperidol [From Haldol] AdvReac Severe vfib Verified 12/17/21 05:32 acetaminophen [From Vicodin] AdvReac Intermediate hallucinati Verified 12/17/21 05:31 ons hydrocodone AdvReac Mild HALLUCINATI Verified 02/24/21 21:44 ONS niacin AdvReac Mild Flushing Verified 12/17/21 05:31 Home Medications Medication Instructions Recorded Confirmed Type acetaminophen 650 mg 1,300 mg PO Q8H PRN Pain 12/16/21 12/16/21 History tablet,extended release (Arthritis Pain Relief (acetaminophen) ER) aspirin 81 mg tablet,delayed 81 mg PO DAILY 12/16/21 12/16/21 History release cetirizine 10 mg tablet 10 mg PO BID 12/16/21 12/16/21 History cholecalciferol (vitamin D3) 50 50 mcg PO DAILY 12/16/21 12/16/21 History mcg (2,000 unit) tablet (Vitamin D3) clopidogrel 75 mg tablet 75 mg PO DAILY 12/16/21 12/16/21 History donepezil 10 mg tablet 10 mg PO DAILY 12/16/21 12/16/21 History duloxetine 60 mg capsule,delayed 60 mg PO DAILY 12/16/21 12/16/21 History release ezetimibe 10 mg tablet 10 mg PO DAILY 12/16/21 12/16/21 History glimepiride 1 mg tablet 1 mg PO DAILY 12/16/21 12/16/21 History lisinopril 10 mg tablet 10 mg PO DAILY 12/16/21 12/16/21 History melatonin 10 mg sublingual tablet 10 mg sublingual HS 12/16/21 12/16/21 History metoprolol succinate 25 mg 25 mg PO DAILY 12/16/21 12/16/21 History tablet,extended release 24 hr nitrofurantoin macrocrystal 50 mg 50 mg PO DAILY 12/16/21 12/16/21 History capsule oxybutynin chloride 5 mg tablet 5 mg PO DAILY 12/16/21 12/16/21 History pantoprazole 40 mg tablet,delayed 40 mg PO DAILY 12/16/21 12/16/21 History release pioglitazone 45 mg tablet 45 mg PO DAILY 12/16/21 12/16/21 History pravastatin 10 mg tablet 10 mg PO DAILY 12/16/21 12/16/21 History Patient History Social History Smoking Status: Former smoker Second Hand Exposure: No; Do You Dip or Chew Tobacco: No; Tobacco Cessation Education Requested by Patient: No Hx Alcohol Use: No Hx Substance Use: No Preferred Language: Slovenian Communication Ability: Effective Tank Worker Required: No Beliefs That Will Affect Care: None Current Living Situation: Assisted Other Information That Helps Us Care for You: No Feels Safe at Home: Yes Assistive Devices: Glasses and Walker Review of Systems Review of Systems: All systems reviewed & are unremarkable except as noted in HPI & below Physical Exam Constitutional: WD/WN, vitals as above Respiratory: normal respiratory effort, lungs clear to auscultation Cardiovascular: Rate/Rhythm: regular rate and regular rhythm Gastrointestinal (Abdomen): Inspection/Auscultation: normal bowel sounds; abdomen not distended Percussion/Palpation: abdomen soft; abdomen nontender, no guarding and abdomen not rigid Results & Data ([facility]) Vital Signs (Past 12 Hours) Vital Signs Pulse Pulse Resp BP BP Pulse Ox Pulse Ox 12/17/21 04:00 63 20 145/79 H 97 12/17/21 02:30 60 16 95 12/17/21 02:00 69 17 12/17/21 02:00 17 141/83 H 12/17/21 01:30 63 13 97 12/17/21 01:00 58 L 16 12/17/21 01:00 148/80 H 12/17/21 00:30 62 17 97 12/17/21 00:59 62 17 141/83 H 97 12/17/21 00:59 97 12/17/21 00:01 17 142/106 H 98 12/17/21 00:01 94 H 12/17/21 00:00 65 18 12/16/21 23:30 60 20 97 12/16/21 23:22 142/93 H 12/16/21 23:22 68 99 12/16/21 23:00 71 99 12/16/21 22:32 53 L 99 12/16/21 22:32 187/77 H 12/16/21 22:30 57 L 99 12/16/21 22:01 103/86 12/16/21 22:01 62 19 12/16/21 22:00 53 L 21 O2 Del Method O2 Del Method 12/17/21 04:00 Room Air 12/17/21 02:30 12/17/21 02:00 12/17/21 02:00 12/17/21 01:30 12/17/21 01:00 12/17/21 01:00 12/17/21 00:30 12/17/21 00:59 Room Air 12/17/21 00:59 Room Air 12/17/21 00:01 12/17/21 00:01 12/17/21 00:00 12/16/21 23:30 12/16/21 23:22 12/16/21 23:22 12/16/21 23:00 12/16/21 22:32 12/16/21 22:32 12/16/21 22:30 12/16/21 22:01 12/16/21 22:01 12/16/21 22:00 Laboratory Results 12/17/21 12/17/21 12/17/21 Range/Units 08:31 05:47 05:47 WBC 8.82 (4.8-10.8) K/ul RBC 3.82 L (3.93-5.22) M/uL Hgb 11.7 L (12.0-16.0) g/dl Hct 35.8 (34.1-44.9) % MCV 93.7 (80.0-100.0) fL MCH 30.6 (25.0-34.0) pg MCHC 32.7 (32.0-36.0) g/dL RDW Std Deviation 46.5 H (36.4-46.3) fL RDW Coeff of [place] 13.7 (11.5-14.5) % Plt Count 273 (130-400) K/uL MPV 9.0 L (9.4-12.3) fL Immature Gran % (Auto) 0.5 % Neut % (Auto) 51.3 % Lymph % (Auto) 35.6 % [place] % (Auto) 9.8 % Eos % (Auto) 2.2 % Baso % (Auto) 0.6 % Neut # (Auto) 4.54 (1.4-6.5) K/uL Lymph # (Auto) 3.14 (1.2-3.4) K/uL [place] # (Auto) 0.86 H (0.24-0.82) K/uL Eos # (Auto) 0.19 (0-0.50) K/uL Baso # (Auto) 0.05 (0-0.2) K/uL Immature Gran # (Auto) 0.04 H (0.00-0.02) K/uL Sodium 137 (136-145) mmol/L Potassium 3.5 (3.5-5.1) mmol/L Chloride 105 (98-107) mmol/L Carbon Dioxide 23 (21-32) mmol/L Anion Gap 9 (3-11) BUN 18 (6-23) mg/dl Creatinine 1.03 (0.6-1.2) mg/dl Est Cr Clr Drug Dosing 40.1 ml/min Est GFR ( Amer) 61.2 ml/min Est GFR (Non-Af Amer) 52.8 ml/min BUN/Creatinine Ratio 17.5 (10-20) Glucose 104 H (70-99(Fasting)) mg/dl POC Glucose 113 H (70-99) mg/dl Estimat Average Glucose mg/dl Hemoglobin A1c (4.5-5.6) % Lactate (0.4-2.0) mmol/L Calcium 8.9 (8.5-10.1) mg/dl Magnesium 2.1 (1.7-2.4) mg/dl Total Bilirubin (0.2-1.0) mg/dl Direct Bilirubin (0-0.2) mg/dl AST (13-39) U/L ALT (7-52) U/L Alkaline Phosphatase (34-104) U/L Troponin I High Sens (0-14) pg/ml Total Protein (6.0-8.3) gm/dl Albumin (3.4-5.0) gm/dl Urine Color Urine Appearance (Clear) Urine pH (4.5-7.5) Ur Specific [place] (1.000-1.030) Urine Protein (Negative) Urine Glucose (UA) (Negative) Urine Ketones (Negative) Urine Blood (Negative) Urine Nitrite (Negative) Urine Bilirubin (Negative) Urine Urobilinogen (Negative) Ur Leukocyte Esterase (Negative) Urine WBC (Auto) (0-5) /hpf Urine RBC (Auto) (0-4) /hpf U Hyaline Cast (Auto) (0-5) /lpf U Epithel Cells (Auto) (0-5) /lpf Urine Bacteria (Auto) (Negative) SARS-CoV-2 (PCR) (Negative) Influenza Type A (PCR) (Neg) Influenza Type B (PCR) (Neg) RSV (RT-PCR) (Neg) 12/17/21 12/17/21 12/16/21 Range/Units 05:47 02:37 16:52 WBC (4.8-10.8) K/ul RBC (3.93-5.22) M/uL Hgb (12.0-16.0) g/dl Hct (34.1-44.9) % MCV (80.0-100.0) fL MCH (25.0-34.0) pg MCHC (32.0-36.0) g/dL RDW Std Deviation (36.4-46.3) fL RDW Coeff of [place] (11.5-14.5) % Plt Count (130-400) K/uL MPV (9.4-12.3) fL Immature Gran % (Auto) % Neut % (Auto) % Lymph % (Auto) % [place] % (Auto) % Eos % (Auto) % Baso % (Auto) % Neut # (Auto) (1.4-6.5) K/uL Lymph # (Auto) (1.2-3.4) K/uL [place] # (Auto) (0.24-0.82) K/uL Eos # (Auto) (0-0.50) K/uL Baso # (Auto) (0-0.2) K/uL Immature Gran # (Auto) (0.00-0.02) K/uL Sodium (136-145) mmol/L Potassium (3.5-5.1) mmol/L Chloride (98-107) mmol/L Carbon Dioxide (21-32) mmol/L Anion Gap (3-11) BUN (6-23) mg/dl Creatinine (0.6-1.2) mg/dl Est Cr Clr Drug Dosing ml/min Est GFR ( Amer) ml/min Est GFR (Non-Af Amer) ml/min BUN/Creatinine Ratio (10-20) Glucose (70-99(Fasting)) mg/dl POC Glucose 102 H (70-99) mg/dl Estimat Average Glucose 140 mg/dl Hemoglobin A1c 6.5 H (4.5-5.6) % Lactate (0.4-2.0) mmol/L Calcium (8.5-10.1) mg/dl Magnesium (1.7-2.4) mg/dl Total Bilirubin (0.2-1.0) mg/dl Direct Bilirubin (0-0.2) mg/dl AST (13-39) U/L ALT (7-52) U/L Alkaline Phosphatase (34-104) U/L Troponin I High Sens (0-14) pg/ml Total Protein (6.0-8.3) gm/dl Albumin (3.4-5.0) gm/dl Urine Color Urine Appearance (Clear) Urine pH (4.5-7.5) Ur Specific [place] (1.000-1.030) Urine Protein (Negative) Urine Glucose (UA) (Negative) Urine Ketones (Negative) Urine Blood (Negative) Urine Nitrite (Negative) Urine Bilirubin (Negative) Urine Urobilinogen (Negative) Ur Leukocyte Esterase (Negative) Urine WBC (Auto) (0-5) /hpf Urine RBC (Auto) (0-4) /hpf U Hyaline Cast (Auto) (0-5) /lpf U Epithel Cells (Auto) (0-5) /lpf Urine Bacteria (Auto) (Negative) SARS-CoV-2 (PCR) NEGATIVE (Negative) Influenza Type A (PCR) Negative (Neg) Influenza Type B (PCR) Negative (Neg) RSV (RT-PCR) Negative (Neg) 12/16/21 12/16/21 12/16/21 Range/Units 16:49 16:49 16:49 WBC 10.85 H (4.8-10.8) K/ul RBC 3.66 L (3.93-5.22) M/uL Hgb 11.2 L (12.0-16.0) g/dl Hct 34.5 (34.1-44.9) % MCV 94.3 (80.0-100.0) fL MCH 30.6 (25.0-34.0) pg MCHC 32.5 (32.0-36.0) g/dL RDW Std Deviation 46.7 H (36.4-46.3) fL RDW Coeff of [place] 13.6 (11.5-14.5) % Plt Count 290 (130-400) K/uL MPV 8.8 L (9.4-12.3) fL Immature Gran % (Auto) 0.5 % Neut % (Auto) 55.7 % Lymph % (Auto) 34.2 % [place] % (Auto) 7.7 % Eos % (Auto) 1.4 % Baso % (Auto) 0.5 % Neut # (Auto) 6.05 (1.4-6.5) K/uL Lymph # (Auto) 3.71 H (1.2-3.4) K/uL [place] # (Auto) 0.84 H (0.24-0.82) K/uL Eos # (Auto) 0.15 (0-0.50) K/uL Baso # (Auto) 0.05 (0-0.2) K/uL Immature Gran # (Auto) 0.05 H (0.00-0.02) K/uL Sodium 138 (136-145) mmol/L Potassium 3.9 (3.5-5.1) mmol/L Chloride 106 (98-107) mmol/L Carbon Dioxide 24 (21-32) mmol/L Anion Gap 8 (3-11) BUN 20 (6-23) mg/dl Creatinine 1.08 (0.6-1.2) mg/dl Est Cr Clr Drug Dosing 38.3 ml/min Est GFR ( Amer) 57.7 ml/min Est GFR (Non-Af Amer) 49.8 ml/min BUN/Creatinine Ratio 18.5 (10-20) Glucose 87 (70-99(Fasting)) mg/dl POC Glucose (70-99) mg/dl Estimat Average Glucose mg/dl Hemoglobin A1c (4.5-5.6) % Lactate 1.3 (0.4-2.0) mmol/L Calcium 9.3 (8.5-10.1) mg/dl Magnesium 1.5 L (1.7-2.4) mg/dl Total Bilirubin 1.0 (0.2-1.0) mg/dl Direct Bilirubin 0.2 (0-0.2) mg/dl AST 11 L (13-39) U/L ALT 6 L (7-52) U/L Alkaline Phosphatase 65 (34-104) U/L Troponin I High Sens 5.4 (0-14) pg/ml Total Protein 6.9 (6.0-8.3) gm/dl Albumin 3.4 (3.4-5.0) gm/dl Urine Color Urine Appearance (Clear) Urine pH (4.5-7.5) Ur Specific [place] (1.000-1.030) Urine Protein (Negative) Urine Glucose (UA) (Negative) Urine Ketones (Negative) Urine Blood (Negative) Urine Nitrite (Negative) Urine Bilirubin (Negative) Urine Urobilinogen (Negative) Ur Leukocyte Esterase (Negative) Urine WBC (Auto) (0-5) /hpf Urine RBC (Auto) (0-4) /hpf U Hyaline Cast (Auto) (0-5) /lpf U Epithel Cells (Auto) (0-5) /lpf Urine Bacteria (Auto) (Negative) SARS-CoV-2 (PCR) (Negative) Influenza Type A (PCR) (Neg) Influenza Type B (PCR) (Neg) RSV (RT-PCR) (Neg) 12/16/21 Range/Units 16:30 WBC (4.8-10.8) K/ul RBC (3.93-5.22) M/uL Hgb (12.0-16.0) g/dl Hct (34.1-44.9) % MCV (80.0-100.0) fL MCH (25.0-34.0) pg MCHC (32.0-36.0) g/dL RDW Std Deviation (36.4-46.3) fL RDW Coeff of [place]ina (11.5-14.5) % Plt Count (130-400) K/uL MPV (9.4-12.3) fL Immature Gran % (Auto) % Neut % (Auto) % Lymph % (Auto) % [place] % (Auto) % Eos % (Auto) % Baso % (Auto) % Neut # (Auto) (1.4-6.5) K/uL Lymph # (Auto) (1.2-3.4) K/uL [place] # (Auto) (0.24-0.82) K/uL Eos # (Auto) (0-0.50) K/uL Baso # (Auto) (0-0.2) K/uL Immature Gran # (Auto) (0.00-0.02) K/uL Sodium (136-145) mmol/L Potassium (3.5-5.1) mmol/L Chloride (98-107) mmol/L Carbon Dioxide (21-32) mmol/L Anion Gap (3-11) BUN (6-23) mg/dl Creatinine (0.6-1.2) mg/dl Est Cr Clr Drug Dosing ml/min Est GFR ( Amer) ml/min Est GFR (Non-Af Amer) ml/min BUN/Creatinine Ratio (10-20) Glucose (70-99(Fasting)) mg/dl POC Glucose (70-99) mg/dl Estimat Average Glucose mg/dl Hemoglobin A1c (4.5-5.6) % Lactate (0.4-2.0) mmol/L Calcium (8.5-10.1) mg/dl Magnesium (1.7-2.4) mg/dl Total Bilirubin (0.2-1.0) mg/dl Direct Bilirubin (0-0.2) mg/dl AST (13-39) U/L ALT (7-52) U/L Alkaline Phosphatase (34-104) U/L Troponin I High Sens (0-14) pg/ml Total Protein (6.0-8.3) gm/dl Albumin (3.4-5.0) gm/dl Urine Color Yellow Urine Appearance Clear (Clear) Urine pH 8.5 H (4.5-7.5) Ur Specific [place] 1.016 (1.000-1.030) Urine Protein Negative (Negative) Urine Glucose (UA) Negative (Negative) Urine Ketones Trace H (Negative) Urine Blood Negative (Negative) Urine Nitrite Positive A (Negative) Urine Bilirubin Negative (Negative) Urine Urobilinogen Negative (Negative) Ur Leukocyte Esterase Negative (Negative) Urine WBC (Auto) 1-5 (0-5) /hpf Urine RBC (Auto) 0-4 (0-4) /hpf U Hyaline Cast (Auto) 1-5 (0-5) /lpf U Epithel Cells (Auto) 10-20 H (0-5) /lpf Urine Bacteria (Auto) 4+ H (Negative) SARS-CoV-2 (PCR) (Negative) Influenza Type A (PCR) (Neg) Influenza Type B (PCR) (Neg) RSV (RT-PCR) (Neg)
[2021-12-17] MEDS: PANTOprazole 40 MG TAB PO SCH (10:04)
[2021-12-17] MEDS: lisinopril 20 MG TAB PO SCH (10:04)
[2021-12-17] MEDS: PRAVASTATIN SOD 10 MG TAB PO SCH (10:04)
[2021-12-17] MEDS: DULoxetine HCL 60 MG CAP PO SCH (10:04)
[2021-12-17] MEDS: METOPROLOL SUCC 25MG EXT REL TAB PO SCH (10:04)
[2021-12-17] MEDS: EZETIMIBE 10 MG TABLET PO SCH (10:04)
[2021-12-17] MEDS: OXYBUTYNIN CHLORIDE 5 MG TAB PO SCH (10:04)
[2021-12-17] MEDS: PIPERACILLIN/TAZOBACTAM 3.375 GM in DEXTROSE 5% 100 ML IV SCH ×2 (14:04→20:57)
--- NOTE | 2021-12-17 16:51 | Hospitalist Progress Note ---
Date of Service December 17, 2021 Assessment & Plan (1) Encephalopathy: Plan: Recurrent diverticulitis -CT ABD:Colonic diverticulosis with wall thickening with associated inflammation of the descending colon. The findings favor acute diverticulitis. Small amount of associated loculated fluid without well-defined abscess. No free air. A follow up CT of the abdomen and pelvis with IV and oral contrast in one month to ensure resolution is recommended.Apparent caliber change within the cecum. This is likely related to the ileocecal valve. An underlying lesion is considered less likely. This should be assessed on follow-up abdominal CT. No acute traumat ic findings identified within the abdomen or pelvis. Cholelithiasis. Trace right pleural effusion. -Blood cultures pending Continue IV Zosyn Appreciate GI input Advance diet as tolerated Urinary tract infection Urine culture growing gram-negative bacilli Continue antibiotics as above Recent Fall resulting in head trauma -CT head:No acute intracranial findings. Exam mildly compromised by motion artifact. No acute calvarial fracture. Fall precautions PT OT Monitor for arrhythmias Uncontrolled hypertension Lisinopril dose increased to 20 mg daily Monitor BP H/O CAD Hyperlipidemia Continue aspirin, Plavix, statin, Metoprolol DM II Hold oral medications HbA1c 6.4 Continue insulin Monitor BGs DVT Px: SCDs for now Re: recent head trauma Code Status DNR/DNI Admission and Anticipated Discharge Date Admission Date: December 16, 2021 Subjective Patient is seen and examined at bedside States having improved abdominal pain Denies any chest pain, shortness, dizziness, nausea Offers no other complaints Review of Systems Review of Systems: All systems reviewed & are unremarkable except as noted in Subjective Physical Exam Physical Exam: Physical Exam: Vitals signs as noted above General Appearance:Moderately built and nourished, no apparent distress Head: normocephalic, traumatic, ecchymosis of lower lip Eyes: normal inspection, EOMI Neck: supple, Trachea midline Respiratory/Chest: Normal breath sounds, CTA, No accessory muscle use Cardiovascular: S1, S2, No murmur Abdomen/GI:Soft, LLQ tender, Bowel sounds present Extremities/Musculoskeletal:normal inspection, no edema Neurologic/Psych:AAOX, grossly no focal neurological deficits Skin: normal color, warm Results & Data Results & Data ([facility]) Vital Signs (Past 12 Hours) Vital Signs Temp Pulse Resp BP BP Pulse Ox O2 Del Method 12/17/21 15:58 36.7 C 71 20 116/59 L 97 Room Air 12/17/21 11:50 36.5 C 52 L 20 155/75 H 97 Room Air Laboratory Results Short CBC 12/16/21 12/17/21 Range/Units 16:49 05:47 WBC 10.85 H 8.82 (4.8-10.8) K/ul Hgb 11.2 L 11.7 L (12.0-16.0) g/dl Hct 34.5 35.8 (34.1-44.9) % Plt Count 290 273 (130-400) K/uL BMP 12/16/21 12/17/21 16:49 05:47 Sodium 138 137 Potassium 3.9 3.5 Chloride 106 105 Carbon Dioxide 24 23 BUN 20 18 Creatinine 1.08 1.03 Glucose 87 104 H Calcium 9.3 8.9 Liver Function 12/16/21 Range/Units 16:49 Total Bilirubin 1.0 (0.2-1.0) mg/dl Direct Bilirubin 0.2 (0-0.2) mg/dl AST 11 L (13-39) U/L ALT 6 L (7-52) U/L Alkaline Phosphatase 65 (34-104) U/L Albumin 3.4 (3.4-5.0) gm/dl Urine 12/16/21 Range/Units 16:30 Urine Color Yellow Urine Appearance Clear (Clear) Urine pH 8.5 H (4.5-7.5) Ur Specific [place] 1.016 (1.000-1.030) Urine Protein Negative (Negative) Urine Glucose (UA) Negative (Negative)
[2021-12-17] MEDS: ACETAMINOPHEN 325 MG TAB PO PRN (21:02)
[2021-12-17] MEDS: MELATONIN 3 MG TAB PO SCH (21:09)
--- NOTE | 2021-12-18 05:42 | Electrocardiogram Report ---
Test Reason : Blood Pressure : / mmHG Vent. Rate : 059 BPM Atrial Rate : 059 BPM P-R Int : 224 ms QRS Dur : 076 ms QT Int : 488 ms P-R-T Axes : 000 -18 050 degrees QTc Int : 484 ms Sinus bradycardia with 1st degree A-V block Premature ventricular complexes Prolonged QT Abnormal ECG When compared with ECG of 24-FEB-2021 21:31, Premature ventricular complexes are now Present Confirmed by Ernesto Romero ([id number]) on 12/18/2021 5:42:34 AM Referred By: REFERRED SELF Confirmed By:Ernesto Romero
[2021-12-18] MEDS: PIPERACILLIN/TAZOBACTAM 3.375 GM in DEXTROSE 5% 100 ML IV SCH ×3 (06:02→21:16)
[2021-12-18 07:13] LABS: Hematocrit (blood only) 35.3 % (34.1-44.9); Hemoglobin 11.4 g/dl (12.0-16.0); Mean Corpuscular Hemoglobin 30.7 pg (25.0-34.0); Mean Corpuscular Hgb Conc 32.3 g/dL (32.0-36.0); Mean Corpuscular Volume 95.1 fL (80.0-100.0); Mean Platelet Volume 9.3 fL (9.4-12.3); Platelet Count 296 K/uL (130-400); RDW Coefficient of Variation 13.4 % (11.5-14.5); Red Blood Count 3.71 M/uL (3.93-5.22); White Blood Count 8.09 K/ul (4.8-10.8)
[2021-12-18 07:36] LABS: BUN Creatinine Ratio 14.8 (10-20); Calcium 8.8 mg/dl (8.5-10.1); Creatinine Clr Calc Pharmacy 43.3 ml/min; Est GFR (African American) 57.7 ml/min; Est GFR (Non-African American) 49.8 ml/min; Magnesium 1.9 mg/dl (1.7-2.4); Potassium 3.5 mmol/L (3.5-5.1)
[2021-12-18] MEDS: PRAVASTATIN SOD 10 MG TAB PO SCH (08:15)
[2021-12-18] MEDS: PANTOprazole 40 MG TAB PO SCH (08:15)
[2021-12-18] MEDS: DONEPEZIL HCL 10 MG TAB PO SCH (08:15)
[2021-12-18] MEDS: OXYBUTYNIN CHLORIDE 5 MG TAB PO SCH (08:15)
[2021-12-18] MEDS: EZETIMIBE 10 MG TABLET PO SCH (08:16)
[2021-12-18] MEDS: CLOPIDOGREL BISULFATE 75 MG TAB PO SCH (08:16)
[2021-12-18] MEDS: ASPIRIN 81 MG ECTAB PO SCH (08:16)
[2021-12-18] MEDS: DULoxetine HCL 60 MG CAP PO SCH (08:16)
[2021-12-18] MEDS: lisinopril 20 MG TAB PO SCH (08:16)
[2021-12-18] MEDS: CETIRIZINE HCL 10 MG TABLET PO SCH ×2 (08:16→21:15)
[2021-12-18] MEDS: INSULIN ASPART PER UNIT SC SCH ×4 (08:17→21:18)
[2021-12-18] MEDS: ACETAMINOPHEN 325 MG TAB PO PRN ×2 (08:20→21:15)
--- NOTE | 2021-12-18 08:44 | Hospitalist Progress Note ---
Date of Service December 18, 2021 Assessment & Plan (1) Encephalopathy: Plan: Recurrent diverticulitis -CT ABD:Colonic diverticulosis with wall thickening with associated inflammation of the descending colon. The findings favor acute diverticulitis. Small amount of associated loculated fluid without well-defined abscess. No free air. A follow up CT of the abdomen and pelvis with IV and oral contrast in one month to ensure resolution is recommended.Apparent caliber change within the cecum. This is likely related to the ileocecal valve. An underlying lesion is considered less likely. This should be assessed on follow-up abdominal CT. No acute traumat ic findings identified within the abdomen or pelvis. Cholelithiasis. Trace right pleural effusion. -Blood cultures pending Continue IV Zosyn Appreciate GI input Advance diet as tolerated Urinary tract infection Urine culture growing E.coli Continue antibiotics as above Recent Fall resulting in head trauma -CT head:No acute intracranial findings. Exam mildly compromised by motion artifact. No acute calvarial fracture. Fall precautions PT OT Monitor for arrhythmias Uncontrolled hypertension Lisinopril dose increased to 20 mg daily Monitor BP H/O CAD Hyperlipidemia Continue aspirin, Plavix, statin, Metoprolol DM II Hold oral medications HbA1c 6.4 Continue insulin Monitor BGs DVT Px: SCDs for now Re: recent head trauma Code Status DNR/DNI Admission and Anticipated Discharge Date Admission Date: December 16, 2021 Subjective Patient is seen in follow up of recurrent diverticulitis, UTI States having slightly worsened abdominal pain Denies any chest pain, shortness, dizziness, nausea Offers no other complaints Review of Systems Review of Systems: All systems reviewed & are unremarkable except as noted in Subjective Physical Exam Physical Exam: General Appearance:Moderately built and nourished, no apparent distress Head: normocephalic, traumatic, ecchymosis of lower lip Eyes: normal inspection, EOMI Neck: supple Respiratory/Chest: Normal breath sounds, CTA, No accessory muscle use Cardiovascular: S1, S2, No murmur Abdomen/GI:Soft, + LLQ tender, Bowel sounds present Extremities/Musculoskeletal:normal inspection, no edema Neurologic/Psych:AAOX, grossly no focal neurological deficits Skin: normal color, warm Results & Data Results & Data ([facility]) Vital Signs (Past 12 Hours) Vital Signs Temp Pulse Pulse Resp BP Pulse Ox O2 Del Method 12/18/21 06:55 36.5 C 55 L 18 132/73 97 Room Air 12/18/21 03:30 36.9 C 50 L 18 133/76 98 Room Air 12/17/21 22:15 60 12/17/21 23:31 36.4 C L 62 18 122/68 95 Room Air Laboratory Results 12/18/21 12/18/21 12/18/21 Range/Units 07:54 06:24 06:24 WBC 8.09 (4.8-10.8) K/ul RBC 3.71 L (3.93-5.22) M/uL Hgb 11.4 L (12.0-16.0) g/dl Hct 35.3 (34.1-44.9) % MCV 95.1 (80.0-100.0) fL MCH 30.7 (25.0-34.0) pg MCHC 32.3 (32.0-36.0) g/dL RDW Std Deviation 47.0 H (36.4-46.3) fL RDW Coeff of Elina 13.4 (11.5-14.5) % Plt Count 296 (130-400) K/uL MPV 9.3 L (9.4-12.3) fL Sodium 138 (136-145) mmol/L Potassium 3.5 (3.5-5.1) mmol/L Chloride 106 (98-107) mmol/L Carbon Dioxide 24 (21-32) mmol/L Anion Gap 8 (3-11) BUN 16 (6-23) mg/dl Creatinine 1.08 (0.6-1.2) mg/dl Est Cr Clr Drug Dosing 43.3 ml/min Est GFR ( Amer) 57.7 ml/min Est GFR (Non-Af Amer) 49.8 ml/min BUN/Creatinine Ratio 14.8 (10-20) Glucose 108 H (70-99(Fasting)) mg/dl POC Glucose 113 H (70-99) mg/dl Calcium 8.8 (8.5-10.1) mg/dl Magnesium 1.9 (1.7-2.4) mg/dl 12/17/21 12/17/21 12/17/21 Range/Units 20:31 16:34 11:53 WBC (4.8-10.8) K/ul RBC (3.93-5.22) M/uL Hgb (12.0-16.0) g/dl Hct (34.1-44.9) % MCV (80.0-100.0) fL MCH (25.0-34.0) pg MCHC (32.0-36.0) g/dL RDW Std Deviation (36.4-46.3) fL RDW Coeff of Elina (11.5-14.5) % Plt Count (130-400) K/uL MPV (9.4-12.3) fL Sodium (136-145) mmol/L Potassium (3.5-5.1) mmol/L Chloride (98-107) mmol/L Carbon Dioxide (21-32) mmol/L Anion Gap (3-11) BUN (6-23) mg/dl Creatinine (0.6-1.2) mg/dl Est Cr Clr Drug Dosing ml/min Est GFR ( Amer) ml/min Est GFR (Non-Af Amer) ml/min BUN/Creatinine Ratio (10-20) Glucose (70-99(Fasting)) mg/dl POC Glucose 172 H 115 H 165 H (70-99) mg/dl Calcium (8.5-10.1) mg/dl Magnesium (1.7-2.4) mg/dl Medications Administered Current Inpatient Medications Acetaminophen (Acetaminophen 325 Mg Tab) 650 mg PO Q4H PRN PRN Reason: Pain or Fever Stop: 01/16/22 00:58 Last Admin: 12/18/21 08:20 Dose: 650 mg Aspirin (Aspirin 81 Mg Ectab) 81 mg PO DAILY [facility] Stop: 01/16/22 08:59 Last Admin: 12/18/21 08:16 Dose: 81 mg Cetirizine HCl (Cetirizine Hcl 10 Mg Tablet) 10 mg PO BID [facility] Stop: 01/16/22 08:59 Last Admin: 12/18/21 08:16 Dose: 10 mg Clopidogrel Bisulfate (Clopidogrel Bisulfate 75 Mg Tab) 75 mg PO DAILY [facility] Stop: 01/16/22 08:59 Last Admin: 12/18/21 08:16 Dose: 75 mg Dextrose (Dextrose 50% 50 Ml Syringe) 25 - 50 ml IV UD PRN; Protocol PRN Reason: Hypoglycemia Protocol Stop: 01/16/22 00:58 Donepezil HCl (Donepezil Hcl 10 Mg Tab) 10 mg PO DAILY [facility] Stop: 01/16/22 08:59 Last Admin: 12/18/21 08:15 Dose: 10 mg Duloxetine HCl (Duloxetine Hcl 60 Mg Cap) 60 mg PO DAILY [facility] Stop: 01/16/22 08:59 Last Admin: 12/18/21 08:16 Dose: 60 mg Ezetimibe (Ezetimibe 10 Mg Tablet) 10 mg PO DAILY [facility] Stop: 01/16/22 08:59 Last Admin: 12/18/21 08:16 Dose: 10 mg Glucagon (Glucagon For Inj 1 Mg Vial) 1 mg SQ UD PRN; Protocol PRN Reason: Hypoglycemia Protocol Stop: 01/16/22 00:58 Glucose (Glucose 40% Gel 15 Gm Tube) 15 - 30 gm PO UD PRN; Protocol PRN Reason: Hypoglycemia Protocol Stop: 01/16/22 00:58 Glucose (Glucose 10 Tab/Tube) 4 - 8 tab PO UD PRN; Protocol PRN Reason: Hypoglycemia Treatment Stop: 01/16/22 00:58 Promethazine HCl 6.25 mg/ (Sodium Chloride) 50.25 mls @ 201 mls/hr IV Q6H PRN PRN Reason: Nausea And Vomiting Stop: 01/16/22 00:58 Piperacillin Sod/Tazobactam (Sod 3.375 gm/ Dextrose) 115 mls @ 28.75 mls/hr IV Q8H [facility]; Protocol Stop: 12/27/21 12:14 Last Admin: 12/18/21 06:02 Dose: 28.8 mls/hr Insulin Aspart (Insulin Aspart Per Unit) 0 units SC ACHS [facility] Stop: 01/16/22 00:58 Last Admin: 12/17/21 21:09 Dose: 2 units Lisinopril (Lisinopril 20 Mg Tab) 20 mg PO DAILY [facility] Stop: 01/16/22 08:59 Last Admin: 12/18/21 08:16 Dose: 20 mg Melatonin (Melatonin 3 Mg Tab) 9 mg PO HS [facility] Stop: 01/16/22 20:59 Last Admin: 12/17/21 21:09 Dose: 9 mg Metoprolol Succinate (Metoprolol Succ 25mg Ext Rel Tab) 25 mg PO DAILY [facility] Stop: 01/16/22 08:59 Last Admin: 12/17/21 10:04 Dose: 25 mg Miscellaneous (Carbohydrates For Hypoglycemia ) 15 - 30 gm PO UD PRN PRN Reason: Hypoglycemia Protocol Stop: 01/16/22 00:58 Oxybutynin Chloride (Oxybutynin Chloride 5 Mg Tab) 5 mg PO DAILY [facility] Stop: 01/16/22 08:59 Last Admin: 12/18/21 08:15 Dose: 5 mg Pantoprazole Sodium (Pantoprazole 40 Mg Tab) 40 mg PO DAILY [facility] Stop: 01/16/22 08:59 Last Admin: 12/18/21 08:15 Dose: 40 mg Pravastatin Sodium (Pravastatin Sod 10 Mg Tab) 10 mg PO DAILY [facility] Stop: 01/16/22 08:59 Last Admin: 12/18/21 08:15 Dose: 10 mg
[2021-12-18] MEDS: METOPROLOL SUCC 25MG EXT REL TAB PO SCH (09:22)
[2021-12-18] MEDS: MELATONIN 3 MG TAB PO SCH (21:15)
[2021-12-19] MEDS: PIPERACILLIN/TAZOBACTAM 3.375 GM in DEXTROSE 5% 100 ML IV SCH ×3 (06:18→21:58)
[2021-12-19 06:49] LABS: Hematocrit (blood only) 34.9 % (34.1-44.9); Hemoglobin 11.2 g/dl (12.0-16.0); Mean Corpuscular Hemoglobin 30.4 pg (25.0-34.0); Mean Corpuscular Hgb Conc 32.1 g/dL (32.0-36.0); Mean Corpuscular Volume 94.6 fL (80.0-100.0); Platelet Count 314 K/uL (130-400); RDW Coefficient of Variation 13.3 % (11.5-14.5); RDW Standard Deviation 46.8 fL (36.4-46.3); Red Blood Count 3.69 M/uL (3.93-5.22); White Blood Count 8.26 K/ul (4.8-10.8)
[2021-12-19 07:32] LABS: BUN Creatinine Ratio 15.5 (10-20); Calcium 9.1 mg/dl (8.5-10.1); Creatinine Clr Calc Pharmacy 42.8 ml/min; Est GFR (African American) 56.5 ml/min; Est GFR (Non-African American) 48.7 ml/min; Magnesium 1.8 mg/dl (1.7-2.4); Phosphorus 3.9 mg/dl (2.5-4.9); Potassium 4.2 mmol/L (3.5-5.1)
[2021-12-19] MEDS: INSULIN ASPART PER UNIT SC SCH ×4 (08:26→21:48)
[2021-12-19] MEDS: ACETAMINOPHEN 325 MG TAB PO PRN ×2 (08:27→21:58)
[2021-12-19] MEDS: METOPROLOL SUCC 25MG EXT REL TAB PO SCH (08:27)
[2021-12-19] MEDS: CETIRIZINE HCL 10 MG TABLET PO SCH ×2 (08:27→21:48)
[2021-12-19] MEDS: OXYBUTYNIN CHLORIDE 5 MG TAB PO SCH (08:28)
[2021-12-19] MEDS: PANTOprazole 40 MG TAB PO SCH (08:28)
[2021-12-19] MEDS: DONEPEZIL HCL 10 MG TAB PO SCH (08:28)
[2021-12-19] MEDS: lisinopril 20 MG TAB PO SCH (08:28)
[2021-12-19] MEDS: PRAVASTATIN SOD 10 MG TAB PO SCH (08:28)
[2021-12-19] MEDS: EZETIMIBE 10 MG TABLET PO SCH (08:28)
[2021-12-19] MEDS: ASPIRIN 81 MG ECTAB PO SCH (08:28)
[2021-12-19] MEDS: DULoxetine HCL 60 MG CAP PO SCH (08:28)
[2021-12-19] MEDS: CLOPIDOGREL BISULFATE 75 MG TAB PO SCH (08:28)
--- NOTE | 2021-12-19 11:32 | Hospitalist Progress Note ---
Date of Service December 19, 2021 Assessment & Plan (1) Encephalopathy: Plan: Recurrent diverticulitis -CT ABD:Colonic diverticulosis with wall thickening with associated inflammation of the descending colon. The findings favor acute diverticulitis. Small amount of associated loculated fluid without well-defined abscess. No free air. A follow up CT of the abdomen and pelvis with IV and oral contrast in one month to ensure resolution is recommended.Apparent caliber change within the cecum. This is likely related to the ileocecal valve. An underlying lesion is considered less likely. This should be assessed on follow-up abdominal CT. No acute traumatic findings identified within the abdomen or pelvis. Cholelithiasis. Trace right pleural effusion. -Blood cultures negat. in 48 hrs Continue IV Zosyn Appreciate GI input Advance diet as tolerated Urinary tract infection Urine culture growing E.coli Continue antibiotics as above Recent Fall resulting in head trauma -CT head:No acute intracranial findings. Exam mildly compromised by motion artifact. No acute calvarial fracture. Fall precautions PT OT Monitor for arrhythmias Uncontrolled hypertension Lisinopril dose increased to 20 mg daily Monitor BP H/O CAD Hyperlipidemia Continue aspirin, Plavix, statin, Metoprolol DM II Hold oral medications HbA1c 6.4 Continue insulin Monitor BGs DVT Px: SCDs for now Re: recent head trauma Code Status DNR/DNI Admission and Anticipated Discharge Date Admission Date: December 16, 2021 Subjective Patient is seen in follow up of recurrent diverticulitis, UTI States having slightly worsened abdominal pain yesterday but now feels better again and would like to advance her diet Denies any chest pain, shortness, dizziness, nausea Has some left hip pain Review of Systems Review of Systems: All systems reviewed & are unremarkable except as noted in Subjective Physical Exam Physical Exam: General Appearance:Moderately built and nourished, no apparent distress Head: normocephalic, traumatic, ecchymosis of lower lip Eyes: normal inspection, EOMI Neck: supple Respiratory/Chest: Normal breath sounds, CTA, No accessory muscle use Cardiovascular: S1, S2, No murmur Abdomen/GI:Soft, + LLQ minimally tender, Bowel sounds present Extremities/Musculoskeletal:normal inspection, no edema Neurologic/Psych:AAOX, grossly no focal neurological deficits Skin: normal color, warm Results & Data Results & Data ([facility]) Vital Signs (Past 12 Hours) Vital Signs Temp Pulse Resp BP BP Pulse Ox O2 Del Method 12/19/21 08:05 36.5 C 67 21 148/82 H 96 Room Air 12/19/21 04:00 36.7 C 66 19 121/75 93 Room Air Laboratory Results 12/19/21 12/19/21 12/19/21 Range/Units 07:44 06:03 06:03 WBC 8.26 (4.8-10.8) K/ul RBC 3.69 L (3.93-5.22) M/uL Hgb 11.2 L (12.0-16.0) g/dl Hct 34.9 (34.1-44.9) % MCV 94.6 (80.0-100.0) fL MCH 30.4 (25.0-34.0) pg MCHC 32.1 (32.0-36.0) g/dL RDW Std Deviation 46.8 H (36.4-46.3) fL RDW Coeff of Elina 13.3 (11.5-14.5) % Plt Count 314 (130-400) K/uL MPV 9.0 L (9.4-12.3) fL Sodium 141 (136-145) mmol/L Potassium 4.2 (3.5-5.1) mmol/L Chloride 109 H (98-107) mmol/L Carbon Dioxide 26 (21-32) mmol/L Anion Gap 6 (3-11) BUN 17 (6-23) mg/dl Creatinine 1.10 (0.6-1.2) mg/dl Est Cr Clr Drug Dosing 42.8 ml/min Est GFR ( Amer) 56.5 ml/min Est GFR (Non-Af Amer) 48.7 ml/min BUN/Creatinine Ratio 15.5 (10-20) Glucose 103 H (70-99(Fasting)) mg/dl POC Glucose 108 H (70-99) mg/dl Calcium 9.1 (8.5-10.1) mg/dl Phosphorus 3.9 (2.5-4.9) mg/dl Magnesium 1.8 (1.7-2.4) mg/dl 12/18/21 12/18/21 12/18/21 Range/Units 20:02 16:55 11:51 WBC (4.8-10.8) K/ul RBC (3.93-5.22) M/uL Hgb (12.0-16.0) g/dl Hct (34.1-44.9) % MCV (80.0-100.0) fL MCH (25.0-34.0) pg MCHC (32.0-36.0) g/dL RDW Std Deviation (36.4-46.3) fL RDW Coeff of Elina (11.5-14.5) % Plt Count (130-400) K/uL MPV (9.4-12.3) fL Sodium (136-145) mmol/L Potassium (3.5-5.1) mmol/L Chloride (98-107) mmol/L Carbon Dioxide (21-32) mmol/L Anion Gap (3-11) BUN (6-23) mg/dl Creatinine (0.6-1.2) mg/dl Est Cr Clr Drug Dosing ml/min Est GFR ( Amer) ml/min Est GFR (Non-Af Amer) ml/min BUN/Creatinine Ratio (10-20) Glucose (70-99(Fasting)) mg/dl POC Glucose 227 H 123 H 193 H (70-99) mg/dl Calcium (8.5-10.1) mg/dl Phosphorus (2.5-4.9) mg/dl Magnesium (1.7-2.4) mg/dl Medications Administered Current Inpatient Medications Acetaminophen (Acetaminophen 325 Mg Tab) 650 mg PO Q4H PRN PRN Reason: Pain or Fever Stop: 01/16/22 00:58 Last Admin: 12/19/21 08:27 Dose: 650 mg Aspirin (Aspirin 81 Mg Ectab) 81 mg PO DAILY [facility] Stop: 01/16/22 08:59 Last Admin: 12/19/21 08:28 Dose: 81 mg Cetirizine HCl (Cetirizine Hcl 10 Mg Tablet) 10 mg PO BID [facility] Stop: 01/16/22 08:59 Last Admin: 12/19/21 08:27 Dose: 10 mg Clopidogrel Bisulfate (Clopidogrel Bisulfate 75 Mg Tab) 75 mg PO DAILY [facility] Stop: 01/16/22 08:59 Last Admin: 12/19/21 08:28 Dose: 75 mg Dextrose (Dextrose 50% 50 Ml Syringe) 25 - 50 ml IV UD PRN; Protocol PRN Reason: Hypoglycemia Protocol Stop: 01/16/22 00:58 Donepezil HCl (Donepezil Hcl 10 Mg Tab) 10 mg PO DAILY [facility] Stop: 01/16/22 08:59 Last Admin: 12/19/21 08:28 Dose: 10 mg Duloxetine HCl (Duloxetine Hcl 60 Mg Cap) 60 mg PO DAILY [facility] Stop: 01/16/22 08:59 Last Admin: 12/19/21 08:28 Dose: 60 mg Ezetimibe (Ezetimibe 10 Mg Tablet) 10 mg PO DAILY [facility] Stop: 01/16/22 08:59 Last Admin: 12/19/21 08:28 Dose: 10 mg Glucagon (Glucagon For Inj 1 Mg Vial) 1 mg SQ UD PRN; Protocol PRN Reason: Hypoglycemia Protocol Stop: 01/16/22 00:58 Glucose (Glucose 40% Gel 15 Gm Tube) 15 - 30 gm PO UD PRN; Protocol PRN Reason: Hypoglycemia Protocol Stop: 01/16/22 00:58 Glucose (Glucose 10 Tab/Tube) 4 - 8 tab PO UD PRN; Protocol PRN Reason: Hypoglycemia Treatment Stop: 01/16/22 00:58 Promethazine HCl 6.25 mg/ (Sodium Chloride) 50.25 mls @ 201 mls/hr IV Q6H PRN PRN Reason: Nausea And Vomiting Stop: 01/16/22 00:58 Piperacillin Sod/Tazobactam (Sod 3.375 gm/ Dextrose) 115 mls @ 28.75 mls/hr IV Q8H [facility]; Protocol Stop: 12/27/21 12:14 Last Infusion: 12/19/21 11:20 Dose: Infused Insulin Aspart (Insulin Aspart Per Unit) 0 units SC ACHS [facility] Stop: 01/16/22 00:58 Last Admin: 12/19/21 08:26 Dose: Not Given Lisinopril (Lisinopril 20 Mg Tab) 20 mg PO DAILY [facility] Stop: 01/16/22 08:59 Last Admin: 12/19/21 08:28 Dose: 20 mg Melatonin (Melatonin 3 Mg Tab) 9 mg PO HS [facility] Stop: 01/16/22 20:59 Last Admin: 12/18/21 21:15 Dose: 9 mg Metoprolol Succinate (Metoprolol Succ 25mg Ext Rel Tab) 25 mg PO DAILY [facility] Stop: 01/16/22 08:59 Last Admin: 12/19/21 08:27 Dose: 25 mg Miscellaneous (Carbohydrates For Hypoglycemia ) 15 - 30 gm PO UD PRN PRN Reason: Hypoglycemia Protocol Stop: 01/16/22 00:58 Oxybutynin Chloride (Oxybutynin Chloride 5 Mg Tab) 5 mg PO DAILY [facility] Stop: 01/16/22 08:59 Last Admin: 12/19/21 08:28 Dose: 5 mg Pantoprazole Sodium (Pantoprazole 40 Mg Tab) 40 mg PO DAILY [facility] Stop: 01/16/22 08:59 Last Admin: 12/19/21 08:28 Dose: 40 mg Pravastatin Sodium (Pravastatin Sod 10 Mg Tab) 10 mg PO DAILY [facility] Stop: 01/16/22 08:59 Last Admin: 12/19/21 08:28 Dose: 10 mg
--- NOTE | 2021-12-19 12:00 | XRay Report ---
XR hip LT 2V w pelvis CLINICAL HISTORY: left hip pain (hx of fall) COMPARISON STUDY: Abdomen and pelvis CT 12/16/2021. FINDINGS: There is a left total hip arthroplasty. The hardware appears intact. No acute fracture or d islocation within the pelvis or hips. Heterotopic ossification within the left hip, unchanged. Otherw ise, soft tissues are unremarkable. IMPRESSION: 1. No acute fracture or dislocation within the pelvis or hips. 2. Left total hip arthroplasty again noted. The hardware appears intact. ACT 112: Negative or not required by law. Electronically signed by: Jose Schneider M.D. 12/19/2021 11:59 AM
[2021-12-19] MEDS: MELATONIN 3 MG TAB PO SCH (21:57)
[2021-12-20] MEDS: PIPERACILLIN/TAZOBACTAM 3.375 GM in DEXTROSE 5% 100 ML IV SCH (05:55)
--- NOTE | 2021-12-20 08:19 | Hospitalist Progress Note ---
Date of Service December 20, 2021 Assessment & Plan (1) Encephalopathy: Plan: Recurrent diverticulitis -CT ABD:Colonic diverticulosis with wall thickening with associated inflammation of the descending colon. The findings favor acute diverticulitis. Small amount of associated loculated fluid without well-defined abscess. No free air. A follow up CT of the abdomen and pelvis with IV and oral contrast in one month to ensure resolution is recommended.Apparent caliber change within the cecum. This is likely related to the ileocecal valve. An underlying lesion is considered less likely. This should be assessed on follow-up abdominal CT. No acute traumatic findings identified within the abdomen or pelvis. Cholelithiasis. Trace right pleural effusion. -Blood cultures negat. in 48 hrs Continue IV Zosyn Appreciate GI input Advance diet as tolerated Urinary tract infection Urine culture growing E.coli Continued antibiotics as above - finished course Recent Fall resulting in head trauma -CT head:No acute intracranial findings. Exam mildly compromised by motion artifact. No acute calvarial fracture. Fall precautions PT OT Monitor for arrhythmias L hip pain - no ecchymosis, or edema on phys. exam - Xray obtained FINDINGS: There is a left total hip arthroplasty. The hardware appears intact. No acute fracture or dislocation within the pelvis or hips. Heterotopic ossific ation within the left hip, unchanged. Otherwise, soft tissues are unremarkable. IMPRESSION: 1. No acute fracture or dislocation within the pelvis or hips. 2. Left total hip arthroplasty again noted. The hardware appears intact. Left hip x-ray unremarkable. Recommend pain management with Tylenol, lidocaine patch. Continue pain management and close monitoring. If without improvement, may need further work-up. History of left hip surgery, patient may need to follow-up with her orthopedics surgeon. Uncontrolled hypertension Lisinopril dose increased to 20 mg daily Monitor BP H/O CAD Hyperlipidemia Continue aspirin, Plavix, statin, Metoprolol DM II Hold oral medications HbA1c 6.4 Continue insulin Monitor BGs DVT Px: SCDs for now Re: recent head trauma Code Status DNR/DNI Admission and Anticipated Discharge Date Admission Date: December 16, 2021 Subjective Patient is seen in follow up of recurrent diverticulitis, UTI Patient is tolerating diet, and has minimal abdominal tenderness Denies any chest pain, shortness, dizziness, nausea Has some left hip pain Review of Systems Review of Systems: All systems reviewed & are unremarkable except as noted in Subjective Physical Exam Physical Exam: General Appearance:Moderately built and nourished, no apparent distress Head: normocephalic, traumatic, ecchymosis of lower lip Eyes: normal inspection, EOMI Neck: supple Respiratory/Chest: Normal breath sounds, CTA, No accessory muscle use Cardiovascular: S1, S2, No murmur Abdomen/GI:Soft, + LLQ minimally tender (improved), Bowel sounds present Extremities/Musculoskeletal:normal inspection, no edema Neurologic/Psych: Awake and alert, able to answer simple questions appropriately, moves extremities Skin: normal color, warm Results & Data Results & Data ([facility]) Vital Signs (Past 12 Hours) Vital Signs Temp Pulse Pulse Resp BP Pulse Ox O2 Del Method 12/20/21 07:51 36.5 C 53 L 20 167/69 H 98 Room Air 12/20/21 03:00 36.4 C L 58 L 20 127/73 96 Room Air 12/20/21 01:12 60 12/19/21 22:44 36.7 C 59 L 18 128/68 96 Room Air Laboratory Results 12/20/21 12/19/21 12/19/21 Range/Units 07:36 19:57 16:37 POC Glucose 105 H 109 H 71 (70-99) mg/dl 12/19/21 Range/Units 11:37 POC Glucose 163 H (70-99) mg/dl Medications Administered Current Inpatient Medications Acetaminophen (Acetaminophen 325 Mg Tab) 650 mg PO Q4H PRN PRN Reason: Pain or Fever Stop: 01/16/22 00:58 Last Admin: 12/19/21 21:58 Dose: 650 mg Aspirin (Aspirin 81 Mg Ectab) 81 mg PO DAILY [facility] Stop: 01/16/22 08:59 Last Admin: 12/19/21 08:28 Dose: 81 mg Cetirizine HCl (Cetirizine Hcl 10 Mg Tablet) 10 mg PO BID [facility] Stop: 01/16/22 08:59 Last Admin: 12/19/21 21:48 Dose: 10 mg Clopidogrel Bisulfate (Clopidogrel Bisulfate 75 Mg Tab) 75 mg PO DAILY [facility] Stop: 01/16/22 08:59 Last Admin: 12/19/21 08:28 Dose: 75 mg Dextrose (Dextrose 50% 50 Ml Syringe) 25 - 50 ml IV UD PRN; Protocol PRN Reason: Hypoglycemia Protocol Stop: 01/16/22 00:58 Donepezil HCl (Donepezil Hcl 10 Mg Tab) 10 mg PO DAILY [facility] Stop: 01/16/22 08:59 Last Admin: 12/19/21 08:28 Dose: 10 mg Duloxetine HCl (Duloxetine Hcl 60 Mg Cap) 60 mg PO DAILY [facility] Stop: 01/16/22 08:59 Last Admin: 12/19/21 08:28 Dose: 60 mg Ezetimibe (Ezetimibe 10 Mg Tablet) 10 mg PO DAILY [facility] Stop: 01/16/22 08:59 Last Admin: 12/19/21 08:28 Dose: 10 mg Glucagon (Glucagon For Inj 1 Mg Vial) 1 mg SQ UD PRN; Protocol PRN Reason: Hypoglycemia Protocol Stop: 01/16/22 00:58 Glucose (Glucose 40% Gel 15 Gm Tube) 15 - 30 gm PO UD PRN; Protocol PRN Reason: Hypoglycemia Protocol Stop: 01/16/22 00:58 Glucose (Glucose 10 Tab/Tube) 4 - 8 tab PO UD PRN; Protocol PRN Reason: Hypoglycemia Treatment Stop: 01/16/22 00:58 Promethazine HCl 6.25 mg/ (Sodium Chloride) 50.25 mls @ 201 mls/hr IV Q6H PRN PRN Reason: Nausea And Vomiting Stop: 01/16/22 00:58 Piperacillin Sod/Tazobactam (Sod 3.375 gm/ Dextrose) 115 mls @ 28.75 mls/hr IV Q8H [facility]; Protocol Stop: 12/27/21 12:14 Last Admin: 12/20/21 05:55 Dose: 28.8 mls/hr Insulin Aspart (Insulin Aspart Per Unit) 0 units SC ACHS [facility] Stop: 01/16/22 00:58 Last Admin: 12/19/21 21:48 Dose: Not Given Lisinopril (Lisinopril 20 Mg Tab) 20 mg PO DAILY [facility] Stop: 01/16/22 08:59 Last Admin: 12/19/21 08:28 Dose: 20 mg Melatonin (Melatonin 3 Mg Tab) 9 mg PO HS [facility] Stop: 01/16/22 20:59 Last Admin: 12/19/21 21:57 Dose: 9 mg Metoprolol Succinate (Metoprolol Succ 25mg Ext Rel Tab) 25 mg PO DAILY [facility] Stop: 01/16/22 08:59 Last Admin: 12/19/21 08:27 Dose: 25 mg Miscellaneous (Carbohydrates For Hypoglycemia ) 15 - 30 gm PO UD PRN PRN Reason: Hypoglycemia Protocol Stop: 01/16/22 00:58 Oxybutynin Chloride (Oxybutynin Chloride 5 Mg Tab) 5 mg PO DAILY [facility] Stop: 01/16/22 08:59 Last Admin: 12/19/21 08:28 Dose: 5 mg Pantoprazole Sodium (Pantoprazole 40 Mg Tab) 40 mg PO DAILY [facility] Stop: 01/16/22 08:59 Last Admin: 12/19/21 08:28 Dose: 40 mg Pravastatin Sodium (Pravastatin Sod 10 Mg Tab) 10 mg PO DAILY [facility] Stop: 01/16/22 08:59 Last Admin: 12/19/21 08:28 Dose: 10 mg
[2021-12-20] MEDS: CETIRIZINE HCL 10 MG TABLET PO SCH (09:02)
[2021-12-20] MEDS: DONEPEZIL HCL 10 MG TAB PO SCH (09:03)
[2021-12-20] MEDS: EZETIMIBE 10 MG TABLET PO SCH (09:03)
[2021-12-20] MEDS: lisinopril 20 MG TAB PO SCH (09:03)
[2021-12-20] MEDS: PRAVASTATIN SOD 10 MG TAB PO SCH (09:03)
[2021-12-20] MEDS: CLOPIDOGREL BISULFATE 75 MG TAB PO SCH (09:03)
[2021-12-20] MEDS: DULoxetine HCL 60 MG CAP PO SCH (09:03)
[2021-12-20] MEDS: PANTOprazole 40 MG TAB PO SCH (09:03)
[2021-12-20] MEDS: OXYBUTYNIN CHLORIDE 5 MG TAB PO SCH (09:03)
[2021-12-20] MEDS: ASPIRIN 81 MG ECTAB PO SCH (09:03)
[2021-12-20] MEDS: INSULIN ASPART PER UNIT SC SCH ×2 (09:25→12:08)
[2021-12-20] MEDS: METOPROLOL SUCC 25MG EXT REL TAB PO SCH (09:26)
[2021-12-20] MEDS: ACETAMINOPHEN 325 MG TAB PO PRN (09:40)
[2021-12-20] MEDS ORDERED: LIDOCAINE 5% 1 PATCH TD SCH (10:30)
--- NOTE | 2021-12-20 10:43 | Discharge Summary ---
Date of Service December 20, 2021 Admission HPI Per Admitting Provider History obtained from patient, family, and records. Patient is a fair historian. Medical history significant for CAD, hypertension, hyperlipidemia, DM2 on oral medications, recurrent UTIs on chronic Macrodantin Rx suppression Rx, chronic anemia (baseline hemoglobin of 11), recurrent diverticulitis, dementia. Last confinement 2004 for acute diverticulitis status post antibiotic Rx. Patient had a fall a few days ago resulting in facial trauma. Achy headache symptoms. 2 days ago, patient noted achy lower abdominal pain. Patient denies dysuria. No chest pain, no shortness of breath, no nausea, no vomiting. Patient noted to be more confused than usual at group home. Sent to the ER for evaluation. Highest SBP at the ER 190s. IV ceftriaxone administered at the ER for possible UTI. Medical History as above Surgical History : Umbilical hernia repair, section, rectal sphincter surgery, uterine polyp removal, vitreous detachment surgery of the right eye Family History :Heart disease Personal/Social history : Smoker, no EtOH intake, group home resident Admission Exam Per Admitting Provider GENERAL: Comfortable, demented, pleasant, no respiratory distress SKIN: Normal color, warm HEENT: Wearing sunglasses, ecchymosis around mouth, dry buccal mucosa NECK : Supple, no tenderness CHEST : CTA, no tenderness HEART : RRR, no obvious murmurs ABDOMEN: Some distention, hypogastric tenderness EXTREMITIES : No LE swelling/tenderness, no other conspicuous deformities noted NEUROLOGIC : Demented, no facial asymmetry, no other gross focality Principal Diagnosis Encephalopathy, uncontrolled hypertension, UTI, diverticulitis, fall, left hip pain Discharge Exam General Appearance:Moderately built and nourished, no apparent distress Head: normocephalic, traumatic, ecchymosis of lower lip Eyes: normal inspection, EOMI Neck: supple Respiratory/Chest: Normal breath sounds, CTA, No accessory muscle use Cardiovascular: S1, S2, No murmur Abdomen/GI:Soft, + LLQ minimally tender (improved), Bowel sounds present Extremities/Musculoskeletal:normal inspection, no edema Neurologic/Psych: Awake and alert, able to answer simple questions appropriately, moves extremities Skin: normal color, warm Discharge Data Allergies Allergy/AdvReac Type Severity Reaction Status Date / Time tomato Allergy Mild Rash Verified 12/17/21 05:31 latex Allergy Unknown ? Unverified 02/24/21 21:44 haloperidol [From Haldol] AdvReac Severe vfib Verified 12/17/21 05:32 acetaminophen [From Vicodin] AdvReac Intermediate hallucinati Verified 12/17/21 05:31 ons hydrocodone AdvReac Mild HALLUCINATI Verified 02/24/21 21:44 ONS niacin AdvReac Mild Flushing Verified 12/17/21 05:31 Consultations 12/16/21 19:04 ED Decision to Admit Stat 12/17/21 00:59 Consult Gastroenterology Routine Ordered Studies 12/16/21 19:58 CT abd pelvis IV con only Stat FINDINGS: Visualized portions of the lung bases are unremarkable with the excep tion of a trace right pleural effusion. There is a small hiatal hernia. No pneumatosis, free air or portal venous gas is present. Calcified granuloma is within the liver and spleen are noted. There are gallstones within the gallbladder. No evidence for acute cholecystitis. The adrenal glands and pancreas are unremarkable. There is no hydronephrosis. Moderate renal cortical thinning is noted. 2.2 cm right renal cyst is present. A few subcentimeter renal lesions are too small to characterize. There is no evidence for a bowel obstruction. Colonic diverticulosis is noted. There is wall thickening with infiltration adjacent to the descending colon. The colon appears adherent to the anterior abdominal wall. There is a small amount of associated loculated fluid. No extraluminal gas is present. There is no drainable fluid collection. Apparent caliber change within the cecum, on axial image 256 of [id number] is likely due to the ileocecal valve. An underlying lesion is considered less likely. There is no abdominal or pelvic lymphadenopathy. Left hip arthroplasty is noted. No acute fractures within the lumbar spine, pelvis or hips are identified. There are multiple old lower thoracic and lumbar spine compression fractures. IMPRESSION: 1. Colonic diverticulosis with wall thickening with associated inflammation of the descending colon. The findings favor acute diverticulitis. Small amount of associated loculated fluid without well-defined abscess. No free air. A follow up CT of the abdomen and pelvis with IV and oral contrast in one month to ensure resolution is recommended. 2. Apparent caliber change within the cecum. This is likely related to the ileocecal valve. An underlying lesion is considered less likely. This should be assessed on follow-up abdominal CT. 3. No acute traumatic findings identified within the abdomen or pelvis. 4. Cholelithiasis. 5. Trace right pleural effusion. CT head/brain wo con Stat FINDINGS: This study is mildly, must by motion artifact. No acute intracranial hemorrhage, midline shift or mass effect is present. Ventricular system is stable. Basal cisterns are patent. White matter hypodensities are similar to prior exam and favor small vessel disease. 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 No calvarial fracture is identified. Left-sided sinus mucosal thickening is present. IMPRESSION: 1. No acute intracranial findings. Exam mildly compromised by motion artifact. 2. No acute calvarial fracture. Hospital Course (1) Encephalopathy: Recurrent diverticulitis -CT ABD:Colonic diverticulosis with wall thickening with associated inflammation of the descending colon. The findings favor acute diverticulitis. Small amount of associated loculated fluid without well-defined abscess. No free air. A follow up CT of the abdomen and pelvis with IV and oral contrast in one month to ensure resolution is recommended.Apparent caliber change within the cecum. This is likely related to the ileocecal valve. An underlying lesion is considered less likely. This should be assessed on follow-up abdominal CT. No acute traumatic findings identified within the abdomen or pelvis. Cholelithiasis. Trace right pleural effusion. -Blood cultures negat. in 48 hrs Continued IV Zosyn while inpt Appreciate GI input Advance diet as tolerated Urinary tract infection Urine culture growing E.coli Continued antibiotics as above - finished course Recent Fall resulting in head trauma -CT head:No acute intracranial findings. Exam mildly compromised by motion artifact. No acute calvarial fracture. Fall precautions PT OT Monitor for arrhythmias L hip pain - no ecchymosis, or edema on phys. exam - Xray obtained FINDINGS: There is a left total hip arthroplasty. The hardware appears intact. No acute fracture or dislocation within the pelvis or hips. Heterotopic ossification within the left hip, unchanged. Otherwise, soft tissues are unremarkable. IMPRESSION: 1. No acute fracture or dislocation within the pelvis or hips. 2. Left total hip arthroplasty again noted. The hardware appears intact. Left hip x-ray unremarkable. Recommend pain management with Tylenol, lidocaine patch. Continue pain management and close monitoring. If without improvement, may need further work-up. History of left hip surgery, patient may need to follow-up with her orthopedics surgeon. Uncontrolled hypertension Lisinopril dose increased to 20 mg daily Monitor BP H/O CAD Hyperlipidemia Continue aspirin, Plavix, statin, Metoprolol DM II Hold oral medications while inpt HbA1c 6.4 Continue insulin Monitor BGs Total Time Total Time Spent Total Time Spent (In Minutes): 40 Discharge Plan Discharge Items Patient Disposition: Transfer Intermediate Fac Reason For Visit: ENCEP, HTN URG, COMP UTI Discharge Diagnosis: Encephalopathy, uncontrolled hypertension, UTI, diverticulitis, fall, left hip pain Activity: Per Instructions section Non-emergency contact: Primary Care Provider Call non-emergency contact if: you have any medication questions and your symptoms worsen Follow-up/Referrals: [facility] HERNANDE[facility] [Primary Care Provider] - Diet: Low Fiber and Low Fat Addtl Attending Provider Instructions: Follow-up with your primary care physician within the next few days. Continue taking antibiotic to treat your diverticulitis. For left hip pain, recommend taking Tylenol and using lidocaine patch. Your primary care physician will reevaluate you further, at your next follow-up visit. Pending Studies at Discharge: Yes Studies:: Final blood cultures Stand-Alone Forms: My [facility] Skilled Items Patient informed of condition?: Yes DNR: Yes Discharge Level of Care: Skilled Communicable Disease: No Discharge Prognosis: Stable Lines: None Urinary Catheter: No Medications and DC Order Prescriptions: New lisinopril 20 mg Tablet 20 mg PO DAILY Qty: 30 0RF lidocaine 5 % Adhesive Patch,Medicated 1 patch transdermal QAM Qty: 15 0RF amoxicillin-pot clavulanate 875-125 mg tablet 1 tab PO BID 10 Days Qty: 20 0RF Continued donepezil 10 mg Tablet 10 mg PO DAILY clopidogrel 75 mg Tablet 75 mg PO DAILY aspirin 81 mg Tablet,Delayed Release (Dr/Ec) 81 mg PO DAILY glimepiride 1 mg Tablet 1 mg PO DAILY metoprolol succinate 25 mg Tablet Extended Release 24 Hr 25 mg PO DAILY ezetimibe 10 mg Tablet 10 mg PO DAILY duloxetine 60 mg Capsule,Delayed Release(Dr/Ec) 60 mg PO DAILY melatonin 10 mg Tablet, Sublingual 10 mg SUBLINGUAL HS nitrofurantoin macrocrystal 50 mg Capsule 50 mg PO DAILY Rx Instructions: must administer with a meal/food pantoprazole 40 mg Tablet,Delayed Release (Dr/Ec) 40 mg PO DAILY oxybutynin chloride 5 mg Tablet 5 mg PO DAILY cetirizine 10 mg Tablet 10 mg PO BID pioglitazone 45 mg Tablet 45 mg PO DAILY acetaminophen [Arthritis Pain Relief (acetam)] 650 mg Tablet Extended Release 1,300 mg PO Q8H MDD 3 gm APAP PRN (Reason: Pain) pravastatin 10 mg Tablet 10 mg PO DAILY cholecalciferol (vitamin D3) [Vitamin D3] 50 mcg (2,000 unit) Tablet 50 mcg PO DAILY Discontinued lisinopril 10 mg Tablet 10 mg PO DAILY Discharge Orders: Discharge Order (Routine); Ordered 12/20/21 Ordered By: New Gunn/Other Patient Handouts: Managing Type 2 Diabetes Admission Data Admit Date/Time: 12/16/21 21:36 Attending Provider: [place] Admit Provider: Tashi Velazco Primary Care Provider: [facility] HERNANDEZ Other Providers: Tashi Velazco ; Felipe Meza ; Galindo Paez ; Jeannie Felder ; Zoey Odonnell ; Hattie Jauregui ; Felipa Lockett ; Logan Coffman ; Lucy Watkins ; Jones Oliver ; Greg Morel ; Avila Tobias ; Juancarlos Navas ; Rose Nunes ; Margret Hernandez ; Autumn Singleton ; Gloria Altamirano ; Manohar Ascencio ; Jeremías Rivas ; Avery Barr ; Ariadna Sheridan ; Akhil Garcia
== END 2021-12-20 13:40 | disposition home or self-care (01) | DRG 392 ==
LOC: ED 16:02 → EDINP 21:36 → SUATTDRO 21:36 → EDINP 12-17 00:58 → 2N 12-17 11:31

== ENCOUNTER 2022-03-08 09:39 | Inpatient (IN) ==
[2022-03-08] MEDS ORDERED: ONDANSETRON INJ 2 MG/ML 2 ML VIAL IV STA (09:54)
[2022-03-08] MEDS ORDERED: SODIUM CHLORIDE 0.9% 500 ML IV SCH (10:00)
--- NOTE | 2022-03-08 10:02 | Emergency Department Note ---
Impression & Plan Confusion, Acute UTI, Diverticulitis, Leukocytosis, Vomiting ED Provider Note NAME: ITALO DOWLING AGE: 76 SEX: F : 1945 ARRIVES VIA: Ambulance INFORMANT: [Patient][nursing, ems] ED PROVIDER(S): [Benjy Anderson MD] CHIEF COMPLAINT: Vomiting, confusion, temperature elevation HISTORY OF PRESENT ILLNESS: The patient is a 76-year-old female with a history of dementia. She has a history of previous UTI, diverticulitis. She takes Plavix and aspirin. As per the EMS crew, the patient fell 4 days ago and hit her head. The patient states that she has been vomiting and not feeling well since the fall. Today, her care center staff felt she was more confused, they were concerned about the vomiting. They recorded a higher temperature elevation. She was sent for evaluation. The patient complains of some lower abdominal pain before she vomits. She denies any headache or chest pain. She does admit to some cough. She is not sure if she had a fever. PMHx/PSHx: See Below SOCIAL HISTORY: See Below. PHYSICAL EXAM: GENERAL: Patient is in no acute distress. HEENT: No acute trauma, normocephalic atraumatic, mucous membranes dry, no nasal congestion. NECK: No stridor, no adenopathy, no meningismus, trachea is midline. LUNGS: Clear to auscultation bilaterally when listening anterior, no respiratory distress, breath sounds equal, no wheeze. HEART: Tachycardic and slightly irregular, subtle systolic murmur heard. ABDOMEN: Soft, nontender, bowel sounds positive, no peritonitis. EXTREMITIES: No cyanosis or edema, full range of motion of all the joints without pain or difficulty, no signs for acute trauma. NEUROLOGIC: Awake and interactive, no speech slur, no extremity drift, some co nfusion/dementia noted. SKIN: No rash, no jaundice, no diaphoresis. DIFFERENTIAL DIAGNOSIS: Infection, UTI, dehydration, metabolic abnormality, hypo/hyperglycemia, electrolyte disturbance, anemia, cardiac sources, intracerebral event, diverticulitis, as well as other pathologies. EMERGENCY DEPARTMENT COURSE/PROCEDURES: Prior/Outside records reviewed: Previous discharge summary, EMS sheets, care center documentation. ECG per my interpretation: Indication was weakness and confusion. The ECG shows a sinus tachycardia with a first-degree AV block. There are PACs present. There is an old inferior infarct. The rate is 116. There are some subtle T wave inversion seen in the higher lateral leads. There is no ST elevation. No PVCs. The QTc is 478. Compared to an ECG from 16 December 2021, the rate has increased Continuous Cardiac Monitoring per my interpretation: An order was placed for continuous cardiac monitoring. The monitor shows a rate of 112 with sinus tachycardia with a first-degree AV block with PACs. MEDICAL DECISION MAKING: There is a moderate leukocytosis, this could be consistent with infection. There was a normal hemoglobin and platelet count. INR slightly high at 1.2. Creatinine was elevated consistent with some dehydration and mild acute renal injury. Lactic acid level was not elevated making severe sepsis less likely. Magnesium was low at 1.2. No concerning liver enzyme elevation. The patient appeared to be in a euthyroid state. ECG shows a sinus tachycardia, no obvious acute ischemia. Cardiac enzyme testing x1 was slightly elevated. This troponin elevation could be from mismatch or potentially cardiac injury. Urinalysis does not suggest infection. COVID, influenza and RSV test were negative. Abdominal and pelvis CT shows diverticulitis without obstruction. Brain CT shows no acute bleed or mass-effect. Chest film did not show pneumonia or CHF. Patient received IV saline, 1.5 L. She was given IV Zofran for nausea. She received IV magnesium for the lower magnesium value. She received IV Unasyn as antibiotic coverage for the UTI and diverticulitis. The patient is in need of a hospital stay. She has findings today that are best addressed in the hospital. I did speak with the patient and case management, the on-call hospitalist was consulted. DISPOSITION: Patient's findings and presentation warrant a hospital stay. Past Med/Surg History Medical History CAD (coronary artery disease) DMII (diabetes mellitus, type 2) HLD (hyperlipidemia) HTN (hypertension) Overactive bladder Social History Smoking Status: Never smoker Second Hand Exposure: No; Hx Alcohol Use: No Hx Substance Use: No Preferred Language: Icelandic Communication Ability: Effective Stripper Latex Required: No Beliefs That Will Affect Care: None marital status: / Current Living Situation: Personal Care Facility Other Information That Helps Us Care for You: No Feels Safe at Home: Yes Safety Concerns: Feels Safe At This Time Assistive Devices: Walker Allergies Allergies Allergy/AdvReac Type Severity Reaction Status Date / Time tomato Allergy Mild Rash Verified 12/17/21 05:31 latex Allergy Unknown ? Unverified 02/24/21 21:44 haloperidol [From Haldol] AdvReac Severe vfib Verified 12/17/21 05:32 acetaminophen [From Vicodin] AdvReac Intermediate hallucinati Verified 12/17/21 05:31 ons hydrocodone AdvReac Mild HALLUCINATI Verified 02/24/21 21:44 ONS niacin AdvReac Mild Flushing Verified 12/17/21 05:31 Home Meds Home Medications Medication Instructions Recorded Confirmed acetaminophen 650 mg 1,300 mg PO Q8H PRN Pain 12/16/21 03/08/22 tablet,extended release (Arthritis Pain Relief (acetaminophen) ER) clopidogrel 75 mg tablet 75 mg PO DAILY 12/16/21 03/08/22 donepezil 10 mg tablet 10 mg PO DAILY 12/16/21 03/08/22 duloxetine 60 mg capsule,delayed 60 mg PO DAILY 12/16/21 03/08/22 release ezetimibe 10 mg tablet 10 mg PO DAILY 12/16/21 03/08/22 glimepiride 1 mg tablet 1 mg PO DAILY 12/16/21 03/08/22 metoprolol succinate 25 mg 25 mg PO DAILY 12/16/21 03/08/22 tablet,extended release 24 hr oxybutynin chloride 5 mg tablet 5 mg PO DAILY 12/16/21 03/08/22 pantoprazole 40 mg tablet,delayed 40 mg PO DAILY 12/16/21 03/08/22 release pioglitazone 45 mg tablet 45 mg PO DAILY 12/16/21 03/08/22 pravastatin 10 mg tablet 10 mg PO DAILY 12/16/21 03/08/22 trazodone 50 mg tablet 25 mg PO QPM 03/08/22 03/08/22 Previous Rx's Medication Instructions Recorded lisinopril 20 mg tablet 20 mg PO DAILY #30 tabs 12/20/21 Results & Data (ED) Vital Signs Vital Signs - 24 hr 03/08/22 09:30 03/08/22 09:56 03/08/22 09:54 Temperature 36.7 C Temperature Source Oral Pulse Rate 115 H Pulse Rate [Left Apical] 112 H Pulse Rate from SpO2 Sensor Pulse Rhythm Regular Pulse Rhythm [Left Apical] Regular Pulse Strength Normal Pulse Strength [Left Apical] Normal Respiratory Rate 20 Respiratory Effort / Characteristics Non-Labored Spontaneous Respiratory Depth Normal Respiratory Pattern Blood Pressure 169/108 H Blood Pressure [Right Arm] Blood Pressure Mean 128 Blood Pressure Mean [Right Arm] Blood Pressure Position [Right Arm] Pulse Oximetry 99 98 Oxygen Delivery Method Room Air Room Air Sepsis Recent Fever Within 48 Hours No Sepsis New/Unexplained Change in Mental Status No Sepsis Action Taken by Nursing No Action Required 03/08/22 09:52 03/08/22 10:00 03/08/22 10:01 Temperature Temperature Source Pulse Rate 117 H 122 H Pulse Rate [Left Apical] Pulse Rate from SpO2 Sensor Pulse Rhythm Pulse Rhythm [Left Apical] Pulse Strength Pulse Strength [Left Apical] Respiratory Rate 20 20 Respiratory Effort / Characteristics Respiratory Depth Respiratory Pattern Blood Pressure 142/102 H Blood Pressure [Right Arm] Blood Pressure Mean 115 Blood Pressure Mean [Right Arm] Blood Pressure Position [Right Arm] Pulse Oximetry 98 98 Oxygen Delivery Method Sepsis Recent Fever Within 48 Hours Sepsis New/Unexplained Change in Mental Status Sepsis Action Taken by Nursing 03/08/22 10:01 03/08/22 10:30 03/08/22 10:30 Temperature Temperature Source Pulse Rate 106 H Pulse Rate [Left Apical] Pulse Rate from SpO2 Sensor 119 H 107 H Pulse Rhythm Pulse Rhythm [Left Apical] Pulse Strength Pulse Strength [Left Apical] Respiratory Rate 20 28 H Respiratory Effort / Characteristics Respiratory Depth Respiratory Pattern Blood Pressure 161/100 H Blood Pressure [Right Arm] Blood Pressure Mean 120 Blood Pressure Mean [Right Arm] Blood Pressure Position [Right Arm] Pulse Oximetry 100 99 Oxygen Delivery Method Sepsis Recent Fever Within 48 Hours Sepsis New/Unexplained Change in Mental Status Sepsis Action Taken by Nursing 03/08/22 11:30 03/08/22 11:00 03/08/22 11:30 Temperature Temperature Source Pulse Rate 125 H 131 H Pulse Rate [Left Apical] 122 H Pulse Rate from SpO2 Sensor 120 H 134 H Pulse Rhythm Pulse Rhythm [Left Apical] Pulse Strength Pulse Strength [Left Apical] Respiratory Rate 18 18 23 Respiratory Effort / Characteristics Non-Labored Spontaneous Respiratory Depth Normal Respiratory Pattern Regular Blood Pressure 189/103 H 163/109 H Blood Pressure [Right Arm] 163/109 H Blood Pressure Mean 131 127 Blood Pressure Mean [Right Arm] 127 Blood Pressure Position [Right Arm] Lying Pulse Oximetry 91 97 96 Oxygen Delivery Method Room Air Sepsis Recent Fever Within 48 Hours Sepsis New/Unexplained Change in Mental Status Sepsis Action Taken by Nursing 03/08/22 12:00 Temperature Temperature Source Pulse Rate 117 H Pulse Rate [Left Apical] Pulse Rate from SpO2 Sensor 123 H Pulse Rhythm Pulse Rhythm [Left Apical] Pulse Strength Pulse Strength [Left Apical] Respiratory Rate 29 H Respiratory Effort / Characteristics Respiratory Depth Respiratory Pattern Blood Pressure 175/99 H Blood Pressure [Right Arm] Blood Pressure Mean 124 Blood Pressure Mean [Right Arm] Blood Pressure Position [Right Arm] Pulse Oximetry 98 Oxygen Delivery Method Sepsis Recent Fever Within 48 Hours Sepsis New/Unexplained Change in Mental Status Sepsis Action Taken by Intermediate Medications Current Medication List: was personally reviewed by me Laboratory Data Attestation: I reviewed the patient's lab results. 03/08/22 10:04 03/08/22 10:04 Lab Results 03/08/22 03/08/22 03/08/22 Range/Units 10:04 10:04 10:04 WBC 16.62 H (4.8-10.8) K/ul RBC 4.06 (3.93-5.22) M/uL Hgb 12.9 (12.0-16.0) g/dl Hct 38.5 (34.1-44.9) % MCV 94.8 (80.0-100.0) fL MCH 31.8 (25.0-34.0) pg MCHC 33.5 (32.0-36.0) g/dL RDW Std Deviation 48.5 H (36.4-46.3) fL RDW Coeff of Elina 14.2 (11.5-14.5) % Plt Count 342 (130-400) K/uL MPV 9.4 (9.4-12.3) fL Immature Gran % (Auto) 0.9 % Neut % (Auto) 84.5 % Lymph % (Auto) 10.2 % [place] % (Auto) 4.2 % Eos % (Auto) 0.0 % Baso % (Auto) 0.2 % Neut # (Auto) 14.05 H (1.4-6.5) K/uL Lymph # (Auto) 1.70 (1.2-3.4) K/uL [place] # (Auto) 0.69 (0.24-0.82) K/uL Eos # (Auto) 0.00 (0-0.50) K/uL Baso # (Auto) 0.03 (0-0.2) K/uL Immature Gran # (Auto) 0.15 H (0.00-0.02) K/uL PT (9.0-12.0) Seconds INR (0.9-1.1) APTT (21.0-31.0) Seconds PTT Ratio Sodium 133 L (136-145) mmol/L Potassium 4.0 (3.5-5.1) mmol/L Chloride 100 (98-107) mmol/L Carbon Dioxide 20 L (21-32) mmol/L Anion Gap 13 H (3-11) BUN 36 H (6-23) mg/dl Creatinine 1.26 H (0.6-1.2) mg/dl Est Cr Clr Drug Dosing 33.0 ml/min Est GFR ( Amer) 47.9 ml/min Est GFR (Non-Af Amer) 41.4 ml/min BUN/Creatinine Ratio 28.6 H (10-20) Glucose 286 H (70-99(Fasting)) mg/dl Lactate (0.4-2.0) mmol/L Calcium 9.3 (8.5-10.1) mg/dl Magnesium 1.2 L (1.7-2.4) mg/dl Total Bilirubin 1.1 H (0.2-1.0) mg/dl AST 16 (13-39) U/L ALT 9 (7-52) U/L Alkaline Phosphatase 60 (34-104) U/L Troponin I High Sens 26.0 H (0-14) pg/ml Total Protein 7.5 (6.0-8.3) gm/dl Albumin 4.2 (3.4-5.0) gm/dl Globulin 3.3 (2.5-4.0) gm/dl Albumin/Globulin Ratio 1.3 (0.9-2) TSH 2.196 (0.300-4.500) uIu/ml Urine Color Urine Appearance (Clear) Urine pH (4.5-7.5) Ur Specific [place] (1.000-1.030) Urine Protein (Negative) Urine Glucose (UA) (Negative) Urine Ketones (Negative) Urine Blood (Negative) Urine Nitrite (Negative) Urine Bilirubin (Negative) Urine Urobilinogen (Negative) Ur Leukocyte Esterase (Negative) Urine WBC (Auto) (0-5) /hpf Urine RBC (Auto) (0-4) /hpf U Hyaline Cast (Auto) (0-5) /lpf U Epithel Cells (Auto) (0-5) /lpf Urine Bacteria (Auto) (Negative) SARS-CoV-2 (PCR) (Negative) Influenza Type A (PCR) (Neg) Influenza Type B (PCR) (Neg) RSV (RT-PCR) (Neg) 03/08/22 03/08/22 03/08/22 Range/Units 10:04 10:04 10:30 WBC (4.8-10.8) K/ul RBC (3.93-5.22) M/uL Hgb (12.0-16.0) g/dl Hct (34.1-44.9) % MCV (80.0-100.0) fL MCH (25.0-34.0) pg MCHC (32.0-36.0) g/dL RDW Std Deviation (36.4-46.3) fL RDW Coeff of Elina (11.5-14.5) % Plt Count (130-400) K/uL MPV (9.4-12.3) fL Immature Gran % (Auto) % Neut % (Auto) % Lymph % (Auto) % [place] % (Auto) % Eos % (Auto) % Baso % (Auto) % Neut # (Auto) (1.4-6.5) K/uL Lymph # (Auto) (1.2-3.4) K/uL [place] # (Auto) (0.24-0.82) K/uL Eos # (Auto) (0-0.50) K/uL Baso # (Auto) (0-0.2) K/uL Immature Gran # (Auto) (0.00-0.02) K/uL PT 12.9 H (9.0-12.0) Seconds INR 1.2 H (0.9-1.1) APTT 24.5 (21.0-31.0) Seconds PTT Ratio 0.9 Sodium (136-145) mmol/L Potassium (3.5-5.1) mmol/L Chloride (98-107) mmol/L Carbon Dioxide (21-32) mmol/L Anion Gap (3-11) BUN (6-23) mg/dl Creatinine (0.6-1.2) mg/dl Est Cr Clr Drug Dosing ml/min Est GFR ( Amer) ml/min Est GFR (Non-Af Amer) ml/min BUN/Creatinine Ratio (10-20) Glucose (70-99(Fasting)) mg/dl Lactate 1.9 (0.4-2.0) mmol/L Calcium (8.5-10.1) mg/dl Magnesium (1.7-2.4) mg/dl Total Bilirubin (0.2-1.0) mg/dl AST (13-39) U/L ALT (7-52) U/L Alkaline Phosphatase (34-104) U/L Troponin I High Sens (0-14) pg/ml Total Protein (6.0-8.3) gm/dl Albumin (3.4-5.0) gm/dl Globulin (2.5-4.0) gm/dl Albumin/Globulin Ratio (0.9-2) TSH (0.300-4.500) uIu/ml Urine Color Urine Appearance (Clear) Urine pH (4.5-7.5) Ur Specific [place] (1.000-1.030) Urine Protein (Negative) Urine Glucose (UA) (Negative) Urine Ketones (Negative) Urine Blood (Negative) Urine Nitrite (Negative) Urine Bilirubin (Negative) Urine Urobilinogen (Negative) Ur Leukocyte Esterase (Negative) Urine WBC (Auto) (0-5) /hpf Urine RBC (Auto) (0-4) /hpf U Hyaline Cast (Auto) (0-5) /lpf U Epithel Cells (Auto) (0-5) /lpf Urine Bacteria (Auto) (Negative) SARS-CoV-2 (PCR) NEGATIVE (Negative) Influenza Type A (PCR) Negative (Neg) Influenza Type B (PCR) Negative (Neg) RSV (RT-PCR) Negative (Neg) 03/08/22 Range/Units 10:30 WBC (4.8-10.8) K/ul RBC (3.93-5.22) M/uL Hgb (12.0-16.0) g/dl Hct (34.1-44.9) % MCV (80.0-100.0) fL MCH (25.0-34.0) pg MCHC (32.0-36.0) g/dL RDW Std Deviation (36.4-46.3) fL RDW Coeff of Elina (11.5-14.5) % Plt Count (130-400) K/uL MPV (9.4-12.3) fL Immature Gran % (Auto) % Neut % (Auto) % Lymph % (Auto) % [place] % (Auto) % Eos % (Auto) % Baso % (Auto) % Neut # (Auto) (1.4-6.5) K/uL Lymph # (Auto) (1.2-3.4) K/uL [place] # (Auto) (0.24-0.82) K/uL Eos # (Auto) (0-0.50) K/uL Baso # (Auto) (0-0.2) K/uL Immature Gran # (Auto) (0.00-0.02) K/uL PT (9.0-12.0) Seconds INR (0.9-1.1) APTT (21.0-31.0) Seconds PTT Ratio Sodium (136-145) mmol/L Potassium (3.5-5.1) mmol/L Chloride (98-107) mmol/L Carbon Dioxide (21-32) mmol/L Anion Gap (3-11) BUN (6-23) mg/dl Creatinine (0.6-1.2) mg/dl Est Cr Clr Drug Dosing ml/min Est GFR ( Amer) ml/min Est GFR (Non-Af Amer) ml/min BUN/Creatinine Ratio (10-20) Glucose (70-99(Fasting)) mg/dl Lactate (0.4-2.0) mmol/L Calcium (8.5-10.1) mg/dl Magnesium (1.7-2.4) mg/dl Total Bilirubin (0.2-1.0) mg/dl AST (13-39) U/L ALT (7-52) U/L Alkaline Phosphatase (34-104) U/L Troponin I High Sens (0-14) pg/ml Total Protein (6.0-8.3) gm/dl Albumin (3.4-5.0) gm/dl Globulin (2.5-4.0) gm/dl Albumin/Globulin Ratio (0.9-2) TSH (0.300-4.500) uIu/ml Urine Color Yellow Urine Appearance Clear (Clear) Urine pH 5.5 (4.5-7.5) Ur Specific [place] 1.022 (1.000-1.030) Urine Protein 2+ H (Negative) Urine Glucose (UA) 3+ H (Negative) Urine Ketones 1+ H (Negative) Urine Blood 1+ H (Negative) Urine Nitrite Positive A (Negative) Urine Bilirubin Negative (Negative) Urine Urobilinogen Negative (Negative) Ur Leukocyte Esterase Negative (Negative) Urine WBC (Auto) 10-30 H (0-5) /hpf Urine RBC (Auto) 0-4 (0-4) /hpf U Hyaline Cast (Auto) 1-5 (0-5) /lpf U Epithel Cells (Auto) 10-20 H (0-5) /lpf Urine Bacteria (Auto) 4+ H (Negative) SARS-CoV-2 (PCR) (Negative) Influenza Type A (PCR) (Neg) Influenza Type B (PCR) (Neg) RSV (RT-PCR) (Neg) Administered Medications Metoprolol Succinate (Metoprolol Succ 25mg Ext Rel Tab) 25 mg PO DAILY [facility] Stop: 04/07/22 13:59 Last Admin: 03/08/22 14:37 Dose: 25 mg Documented By: MAT Discontinued Medications Sodium Chloride (Nss) 500 mls @ 999 mls/hr IV .Q31M JOLENE Stop: 03/08/22 10:30 Last Infusion: 03/08/22 10:41 Dose: 0 mls/hr Documented By: Admin: 03/08/22 10:02 Dose: 999 mls/hr Documented By: TW Sodium Chloride (Nss 1000ml) 1,000 mls @ 999 mls/hr IV .Q1H1M ONE Stop: 03/08/22 12:08 Last Infusion: 03/08/22 12:48 Dose: 0 mls/hr Documented By: Admin: 03/08/22 11:46 Dose: 999 mls/hr Documented By: MAT Magnesium Sulfate/Dextrose (Magnesium Sulfate / D5w) 1 gm in 100 mls @ 100 mls/hr IV Q1H [facility] Stop: 03/08/22 13:07 Last Infusion: 03/08/22 14:42 Dose: 0 mls/hr Documented By: Admin: 03/08/22 13:41 Dose: 100 mls/hr Documented By: Infusion: 03/08/22 13:30 Dose: 100 mls/hr Documented By: Admin: 03/08/22 12:30 Dose: 100 mls/hr Documented By: MAT Ampicillin Sodium/Sulbactam Sodium 3,000 mg/ Sodium Chloride 108 mls @ 200 mls/hr IV NOW STA; Protocol Stop: 03/08/22 11:47 Last Infusion: 03/08/22 12:27 Dose: 0 mls/hr Documented By: Admin: 03/08/22 11:46 Dose: 200 mls/hr Documented By: MAT Ondansetron HCl (Ondansetron Inj 2 Mg/Ml 2 Ml Vial) 4 mg IV NOW STA Stop: 03/08/22 09:55 Last Admin: 03/08/22 10:03 Dose: 4 mg Documented By: ETHAN Imaging Data Radiologist's Impression: Abdomen/Pelvis CT 03/08/22 09:54 CT abd pelvis wo con CLINICAL HISTORY: vomiting, poss obstruc, hist divertic TECHNIQUE: Helical axial images of the abdomen and pelvis were obtained. Automated dose lowering techniques and/or adjustment according to patient size were utilized for this exam. This exam was performed without intravenous contrast. CT DOSE: 1508.93 mGy.cm COMPARISON: Comparison is made to CT abdomen pelvis 12/16/2021 FINDINGS: Lower chest: No acute abnormality. Liver: Multiple calcifications may represent prior granulomatous disease. Gallbladder and biliary tree: Cholelithiasis is seen without evidence of cholecystitis. No intra- or extrahepatic biliary ductal dilation. Pancreas: Unremarkable, no focal lesions. Spleen: Calcifications are noted in the spleen compatible with prior granulomatous disease. Adrenals: Unremarkable. Kidneys and ureters: Nonobstructive nephrolithiasis is seen. Right renal cyst is seen. Bladder: Limited evaluation due to underdistention. Reproductive organs: Unremarkable. Bowel: Numerous diverticula are seen and there is mildly increased vascularity and fat stranding. There is a small hiatal hernia and a duodenal diverticulum. Lymph nodes Retroperitoneal: Unremarkable. Pelvic: Unremarkable. Mesenteric: Unremarkable. Peritoneum: There is soft tissue stranding in the left lower quadrant and a few compliant appearing locules of fluid about the sigmoid colon. Vessels: Atherosclerotic calcifications are seen. Abdominal wall: Unremarkable. Bones: Levoscoliosis is noted. 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 Degeneration of the spine is noted. No evidence of acute fracture. IMPRESSION: 1. Findings are compatible with acute diverticulitis without evidence of perforation. Overall the degree of inflammation is somewhat less than on the prior exam. Compliant appearing adjacent fluid foci are seen which are considered less likely to represent abscess, however this cannot be entirely excluded on a noncontrast exam. 2. Cholelithiasis without cholecystitis. 3. Nonobstructive nephrolithiasis. 4. Additional findings as above. ACT 112: Negative or not required by law. Electronically signed by: Marlo Gibbs M.D. 03/08/2022 11:09 AM Chest X-Ray 03/08/22 09:54 XR chest 1V portable CLINICAL HISTORY: weakness TECHNIQUE: Single frontal radiograph of the chest was obtained. Comparison: Comparison is made to chest radiograph 12/16/2021 FINDINGS: No lines and tubes are seen. The cardiomediastinal silhouette is normal. The lungs are clear. No evidence of pleural effusion or pneumothorax. Scoliosis is incidentally noted. IMPRESSION: No acute abnormalities and in particular no evidence of pneumonia. ACT 112: Negative or not required by law. Electronically signed by: Marlo Gibbs M.D. 03/08/2022 10:[address] 03/08/22 09:54 CT head/brain wo con CLINICAL HISTORY: hit head, vomiting Technique: Contiguous axial CT images of the head were acquired from the base of the skull to the vertex without intravenous contrast administration. Images were viewed in brain, subdural and bone windows. Automated dose lowering techniques and/or adjustment according to patient size were utilized for this exam. Comparison: None available at the time of this dictation. Findings: Areas of decreased attenuation are present in the periventricular and subcortical white matter bilaterally consistent with small vessel ischemic disease. Generalized cerebral atrophy with commensurate enlargement of the ventricles, sulci, and cisterns is also present. There is no acute intracranial hemorrhage or evidence of acute territorial infarction. No shift of the midline structures, mass effect, or extra-axial abnormalities are shown. Atherosclerotic calcifications are present in the intracranial segments of the internal carotid arteries. Old lacunar infarct in the left basal ganglia is unchanged. Imaged portions of the paranasal sinuses and mastoid air cells are clear. The orbits appear normal. There are no acute fractures of the calvaria or scalp swelling. Impression: No acute intracranial hemorrhage, no evidence of acute territorial infarction or other acute intracranial disease process. ACT 112: Negative or not required by law. Electronically signed by: Marlo Gibbs M.D. 03/08/2022 10:38 AM Discharge Plan Visit Data Chief Complaint: Illness ED Provider: Benjy Anderson Discharge Problem: Confusion, Acute UTI, Diverticulitis, Leukocytosis, Vomiting Patient Disposition: Admitted As Inpatient Condition: Fair Discharge Instructions Interventions: ED Discharge Assessment Last Done: 03/08/22 14:23
[2022-03-08 10:15] LABS: Basophils # (auto) 0.03 K/uL (0-0.2); Basophils % (auto) 0.2 %; Hematocrit (blood only) 38.5 % (34.1-44.9); Hemoglobin 12.9 g/dl (12.0-16.0); Immature Granulocytes # (auto) 0.15 K/uL (0.00-0.02); Immature Granulocytes % (auto) 0.9 %; Lymphocytes % (auto) 10.2 %; Mean Corpuscular Hemoglobin 31.8 pg (25.0-34.0); Mean Corpuscular Hgb Conc 33.5 g/dL (32.0-36.0); Mean Corpuscular Volume 94.8 fL (80.0-100.0); Mean Platelet Volume 9.4 fL (9.4-12.3); Monocytes # (auto) 0.69 K/uL (0.24-0.82); Monocytes % (auto) 4.2 %; Neutrophils # (auto) 14.05 K/uL (1.4-6.5); Neutrophils % (auto) 84.5 %; Platelet Count 342 K/uL (130-400); RDW Coefficient of Variation 14.2 % (11.5-14.5); RDW Standard Deviation 48.5 fL (36.4-46.3); Red Blood Count 4.06 M/uL (3.93-5.22); White Blood Count 16.62 K/ul (4.8-10.8)
--- NOTE | 2022-03-08 10:17 | XRay Report ---
XR chest 1V portable CLINICAL HISTORY: weakness TECHNIQUE: Single frontal radiograph of the chest was obtained. Comparison: Comparison is made to chest radiograph 12/16/2021 FINDINGS: No lines and tubes are seen. The cardiomediastinal silhouette is normal. The lungs are clear. No evid ence of pleural effusion or pneumothorax. Scoliosis is incidentally noted. IMPRESSION: No acute abnormalities and in particular no evidence of pneumonia. ACT 112: Negative or not required by law. Electronically signed by: Marlo Gibbs M.D. 03/08/2022 10:14 AM
[2022-03-08 10:29] LABS: INR 1.2 (0.9-1.1); Partial Thromboplastin Ratio 0.9; Partial Thromboplastin Time 24.5 Seconds (21.0-31.0); Prothrombin Time 12.9 Seconds (9.0-12.0)
[2022-03-08 10:35] LABS: Albumin Globulin Ratio 1.3 (0.9-2); Albumin Level 4.2 gm/dl (3.4-5.0); BUN Creatinine Ratio 28.6 (10-20); Bilirubin,Total 1.1 mg/dl (0.2-1.0); Calcium 9.3 mg/dl (8.5-10.1); Est GFR (African American) 47.9 ml/min; Est GFR (Non-African American) 41.4 ml/min; Globulin 3.3 gm/dl (2.5-4.0); Magnesium 1.2 mg/dl (1.7-2.4); Total Protein 7.5 gm/dl (6.0-8.3)
--- NOTE | 2022-03-08 10:40 | CT Scan Report ---
CT head/brain wo con CLINICAL HISTORY: hit head, vomiting Technique: Contiguous axial CT images of the head were acquired from the base of the skull to the cordell gaetano without intravenous contrast administration. Images were viewed in brain, subdural and bone [facility]. Automated dose lowering techniques and/or adjustment according to patient size were utilized for this exam. Comparison: None available at the time of this dictation. Findings: Areas of decreased attenuation are present in the periventricular and subcortical white matter bilate rally consistent with small vessel ischemic disease. Generalized cerebral atrophy with commensurate e nlargement of the ventricles, sulci, and cisterns is also present. There is no acute intracranial hem orrhage or evidence of acute territorial infarction. No shift of the midline structures, mass effect, or extra-axial abnormalities are shown. Atherosclerotic calcifications are present in the intracran ial segments of the internal carotid arteries. Old lacunar infarct in the left basal ganglia is uncha nged. Imaged portions of the paranasal sinuses and mastoid air cells are clear. The orbits appear normal. There are no acute fractures of the calvaria or scalp swelling. Impression: No acute intracranial hemorrhage, no evidence of acute territorial infarction or other acute intracra nial disease process. ACT 112: Negative or not required by law. Electronically signed by: Marlo Gibbs M.D. 03/08/2022 10:38 AM
[2022-03-08 10:56] LABS: Influenza A virus by PCR Negative (Neg); Influenza B virus by PCR Negative (Neg); RSV by PCR Negative (Neg); SARS CoV2 RNA(COVID-19) Ceph NEGATIVE (Negative)
[2022-03-08 11:06] LABS: Appearance Urine Clear (Clear); Bacteria Urine Automated 4+ (Negative); Bilirubin Urine Negative (Negative); Blood Urine 1+ (Negative); Color Urine Yellow; Glucose Urine UA 3+ (Negative); Ketones Urine 1+ (Negative); Leukocyte Esterase Urine Negative (Negative); Nitrite Urine Positive (Negative); Protein Urine 2+ (Negative); RBC Urine Automated 0-4 /hpf (0-4); Specific Gravity Urine 1.022 (1.000-1.030); Urobilinogen Urine Negative (Negative); pH Urine 5.5 (4.5-7.5)
[2022-03-08] MEDS ORDERED: SODIUM CHLORIDE 0.9% 1000ML 1,000 ML IV ONE (11:08)
--- NOTE | 2022-03-08 11:12 | CT Scan Report ---
CT abd pelvis wo con CLINICAL HISTORY: vomiting, poss obstruc, hist divertic TECHNIQUE: Helical axial images of the abdomen and pelvis were obtained. Automated dose lowering tech niques and/or adjustment according to patient size were utilized for this exam. This exam was perfor med without intravenous contrast. CT DOSE: 1508.93 mGy.cm COMPARISON: Comparison is made to CT abdomen pelvis 12/16/2021 FINDINGS: Lower chest: No acute abnormality. Liver: Multiple calcifications may represent prior granulomatous disease. Gallbladder and biliary tree: Cholelithiasis is seen without evidence of cholecystitis. No intra- or extrahepatic biliary ductal dilation. Pancreas: Unremarkable, no focal lesions. Spleen: Calcifications are noted in the spleen compatible with prior granulomatous disease. Adrenals: Unremarkable. Kidneys and ureters: Nonobstructive nephrolithiasis is seen. Right renal cyst is seen. Bladder: Limited evaluation due to underdistention. Reproductive organs: Unremarkable. Bowel: Numerous diverticula are seen and there is mildly increased vascularity and fat stranding. The re is a small hiatal hernia and a duodenal diverticulum. Lymph nodes Retroperitoneal: Unremarkable. Pelvic: Unremarkable. Mesenteric: Unremarkable. Peritoneum: There is soft tissue stranding in the left lower quadrant and a few compliant appearing l ocules of fluid about the sigmoid colon. Vessels: Atherosclerotic calcifications are seen. Abdominal wall: Unremarkable. Bones: Levoscoliosis is noted. 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 Degeneration of the spine is note d. No evidence of acute fracture. IMPRESSION: 1. Findings are compatible with acute diverticulitis without evidence of perforation. Overall the de gree of inflammation is somewhat less than on the prior exam. Compliant appearing adjacent fluid foci are seen which are considered less likely to represent abscess, however this cannot be entirely excl uded on a noncontrast exam. 2. Cholelithiasis without cholecystitis. 3. Nonobstructive nephrolithiasis. 4. Additional findings as above. ACT 112: Negative or not required by law. Electronically signed by: Marlo Gibbs M.D. 03/08/2022 11:09 AM
[2022-03-08] MEDS ORDERED: AMPICILLIN/SULBACTAM SOD 3,000 MG in 0.9 % SODIUM CHLORIDE 100 ML IV STA (11:15)
[2022-03-08] MEDS: MAGNESIUM SULFATE / D5W 1 GM/100 ML BAG IV SCH ×2 (12:30→13:41)
--- NOTE | 2022-03-08 12:49 | History & Physical Report ---
Date of Service March 08, 2022 Assessment & Plan (1) Metabolic encephalopathy: (2) Acute UTI (urinary tract infection): (3) History of recent fall: (4) Diverticulitis large intestine: (5) HTN (hypertension): (6) DMII (diabetes mellitus, type 2): (7) CAD (coronary artery disease): (8) Overactive bladder: (9) HLD (hyperlipidemia): Plan Acute encephalopathy 2/2 UTI + Diverticulitis: -mental status improved on examination -UCx sent -CT abd: Findings are compatible with acute diverticulitis without evidence of perforation. Overall the degree of inflammation is somewhat less than on the prior exam. Compliant appearing adjacent fluid foci are seen which are consid ered less likely to represent abscess. -pt received unasyn in the ER -will do cefepime and flagyl ---- discharge on PO -upon review of the [facility] chart: pt is not on chronic macrobid anymore -Reviewed labs from ER: BMP, CBC, TSH -PT/OT -Cr is slightly elevated ---- receiving IVF ---- will monitor BMP Recent fall: -CT head: no acute finding -at bedside: pt denied any pain -PT/OT: walks with walker at baseline HTN & CAD: -BP is elevated but pt did not get her morning meds -will do metoprolol now -continue home meds - currently only on Plavix (not on aspirin anymore) DMII: -hold oral DMII ---- ISS HLD/Overactive bladder/GERD: -continue home meds: Diet: DMII and heart healthy DVT PPx: SCD (due to having recent fall + head trauma) Code Status: DNR/DNI (verified with pt's daughter - Kenyetta) Emergency Contact: Kenyetta Cha [phone] History of Present Illness Chief Complaint: AMS and vomiting Primary Care Provider: [facility] Pt is a 76 y/o F with hx of Dementia, DMII, HLD, HTN, CAD (now only on Plavix), overactive bladder, Anxiety, Recurrent UTI (was on macrobid in the past) and multiple hx of Diverticulitis brought in from [facility] for AMS and episode of vomiting. Per [facility] staff pt had a mechanical fall 4 days with possible head trauma. At bedside: Pt denied any CP, SOB, Abd pain, N/V, dizziness or blurry vision. Allergies Allergy/AdvReac Type Severity Reaction Status Date / Time tomato Allergy Mild Rash Verified 12/17/21 05:31 latex Allergy Unknown ? Unverified 02/24/21 21:44 haloperidol [From Haldol] AdvReac Severe vfib Verified 12/17/21 05:32 acetaminophen [From Vicodin] AdvReac Intermediate hallucinati Verified 12/17/21 05:31 ons hydrocodone AdvReac Mild HALLUCINATI Verified 02/24/21 21:44 ONS niacin AdvReac Mild Flushing Verified 12/17/21 05:31 Home Medications Medication Instructions Recorded Confirmed Type acetaminophen 650 mg 1,300 mg PO Q8H PRN Pain 12/16/21 03/08/22 History tablet,extended release (Arthritis Pain Relief (acetaminophen) ER) clopidogrel 75 mg tablet 75 mg PO DAILY 12/16/21 03/08/22 History donepezil 10 mg tablet 10 mg PO DAILY 12/16/21 03/08/22 History duloxetine 60 mg capsule,delayed 60 mg PO DAILY 12/16/21 03/08/22 History release ezetimibe 10 mg tablet 10 mg PO DAILY 12/16/21 03/08/22 History glimepiride 1 mg tablet 1 mg PO DAILY 12/16/21 03/08/22 History metoprolol succinate 25 mg 25 mg PO DAILY 12/16/21 03/08/22 History tablet,extended release 24 hr oxybutynin chloride 5 mg tablet 5 mg PO DAILY 12/16/21 03/08/22 History pantoprazole 40 mg tablet,delayed 40 mg PO DAILY 12/16/21 03/08/22 History release pioglitazone 45 mg tablet 45 mg PO DAILY 12/16/21 03/08/22 History pravastatin 10 mg tablet 10 mg PO DAILY 12/16/21 03/08/22 History lisinopril 20 mg tablet 20 mg PO DAILY #30 tabs 12/20/21 03/08/22 Rx trazodone 50 mg tablet 25 mg PO QPM 03/08/22 03/08/22 History Past Med/Surg History Medical History CAD (coronary artery disease) DMII (diabetes mellitus, type 2) HLD (hyperlipidemia) HTN (hypertension) Overactive bladder Social History Smoking Status: Never smoker Second Hand Exposure: No; Hx Alcohol Use: No Hx Substance Use: No Preferred Language: Spanish Communication Ability: Effective [employer] Department Required: No Beliefs That Will Affect Care: None marital status: / Current Living Situation: [facility] Feels Safe at Home: Yes Assistive Devices: Walker Review of Systems Review of Systems: At least 10 Review of systems were reviewed and all negative except as indicated in HPI Physical Exam Physical Exam: General:. NAD, well developed, well nourished, average body habitus HEENT:. Normocephalic and atraumatic, Normal Conjunctiva, EOMI, Sclera is non- icteric Lungs:. No signs of respiratory distress, CTA, no wheezing or crackles Heart:. Normal S1, S2, no murmur Abdominal:.mild discomfort to palpation diffusely, no rebound or guarding, ND, Soft MSK:. No deformities of UE and LE, No leg edema Psych:. AAOx3 (however did not remember the date), normal affect Results & Data Results & Data ([facility]) Vital Signs (Past 12 Hours) Vital Signs Temp Pulse Pulse Resp BP BP Pulse Ox 03/08/22 11:30 122 H 18 163/109 H 91 03/08/22 10:30 106 H 28 H 99 03/08/22 10:30 161/100 H 03/08/22 10:01 20 100 03/08/22 10:01 142/102 H 03/08/22 10:00 122 H 20 98 03/08/22 09:52 117 H 20 98 03/08/22 09:54 98 03/08/22 09:56 112 H 03/08/22 09:30 36.7 C 115 H 20 169/108 H 99 O2 Del Method 03/08/22 11:30 Room Air 03/08/22 10:30 03/08/22 10:30 03/08/22 10:01 03/08/22 10:01 03/08/22 10:00 03/08/22 09:52 03/08/22 09:54 Room Air 03/08/22 09:56 03/08/22 09:30 Room Air Laboratory Results Short CBC 03/08/22 Range/Units 10:04 WBC 16.62 H (4.8-10.8) K/ul Hgb 12.9 (12.0-16.0) g/dl Hct 38.5 (34.1-44.9) % Plt Count 342 (130-400) K/uL BMP 03/08/22 10:04 Sodium 133 L Potassium 4.0 Chloride 100 Carbon Dioxide 20 L BUN 36 H Creatinine 1.26 H Glucose 286 H Calcium 9.3 Liver Function 03/08/22 Range/Units 10:04 Total Bilirubin 1.1 H (0.2-1.0) mg/dl AST 16 (13-39) U/L ALT 9 (7-52) U/L Alkaline Phosphatase 60 (34-104) U/L Albumin 4.2 (3.4-5.0) gm/dl Urine 03/08/22 Range/Units 10:30 Urine Color Yellow Urine Appearance Clear (Clear) Urine pH 5.5 (4.5-7.5) Ur Specific [place] 1.022 (1.000-1.030) Urine Protein 2+ H (Negative) Urine Glucose (UA) 3+ H (Negative) Diagnostic Findings Abdomen/Pelvis CT 03/08/22 09:54 CT abd pelvis wo con CLINICAL HISTORY: vomiting, poss obstruc, hist divertic TECHNIQUE: Helical axial images of the abdomen and pelvis were obtained. Automated dose lowering techniques and/or adjustment according to patient size were utilized for this exam. This exam was performed without intravenous contrast. CT DOSE: 1508.93 mGy.cm COMPARISON: Comparison is made to CT abdomen pelvis 12/16/2021 FINDINGS: Lower chest: No acute abnormality. Liver: Multiple calcifications may represent prior granulomatous disease. Gallbladder and biliary tree: Cholelithiasis is seen without evidence of cholecystitis. No intra- or extrahepatic biliary ductal dilation. Pancreas: Unremarkable, no focal lesions. Spleen: Calcifications are noted in the spleen compatible with prior granulomatous disease. Adrenals: Unremarkable. Kidneys and ureters: Nonobstructive nephrolithiasis is seen. Right renal cyst is seen. Bladder: Limited evaluation due to underdistention. Reproductive organs: Unremarkable. Bowel: Numerous diverticula are seen and there is mildly increased vascularity and fat stranding. There is a small hiatal hernia and a duodenal diverticulum. Lymph nodes Retroperitoneal: Unremarkable. Pelvic: Unremarkable. Mesenteric: Unremarkable. Peritoneum: There is soft tissue stranding in the left lower quadrant and a few compliant appearing locules of fluid about the sigmoid colon. Vessels: Atherosclerotic calcifications are seen. Abdominal wall: Unremarkable. Bones: Levoscoliosis is noted. 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 Degeneration of the spine is noted. No evidence of acute fracture. IMPRESSION: 1. Findings are compatible with acute diverticulitis without evidence of perforation. Overall the degree of inflammation is somewhat less than on the prior exam. Compliant appearing adjacent fluid foci are seen which are considered less likely to represent abscess, however this cannot be entirely excluded on a noncontrast exam. 2. Cholelithiasis without cholecystitis. 3. Nonobstructive nephrolithiasis. 4. Additional findings as above. ACT 112: Negative or not required by law. Electronically signed by: Marlo Gibbs M.D. 03/08/2022 11:09 AM Chest X-Ray 03/08/22 09:54 XR chest 1V portable CLINICAL HISTORY: weakness TECHNIQUE: Single frontal radiograph of the chest was obtained. Comparison: Comparison is made to chest radiograph 12/16/2021 FINDINGS: No lines and tubes are seen. The cardiomediastinal silhouette is normal. The lungs are clear. No evidence of pleural effusion or pneumothorax. Scoliosis is incidentally noted. IMPRESSION: No acute abnormalities and in particular no evidence of pneumonia. ACT 112: Negative or not required by law. Electronically signed by: Marlo iGbbs M.D. 03/08/2022 10:[address] 03/08/22 09:54 CT head/brain wo con CLINICAL HISTORY: hit head, vomiting Technique: Contiguous axial CT images of the head were acquired from the base of the skull to the vertex without intravenous contrast administration. Images were viewed in brain, subdural and bone windows. Automated dose lowering techniques and/or adjustment according to patient size were utilized for this exam. Comparison: None available at the time of this dictation. Findings: Areas of decreased attenuation are present in the periventricular and subcortical white matter bilaterally consistent with small vessel ischemic disease. Generalized cerebral atrophy with commensurate enlargement of the ventricles, sulci, and cisterns is also present. There is no acute intracranial hemorrhage or evidence of acute territorial infarction. No shift of the midline structures, mass effect, or extra-axial abnormalities are shown. Atherosclerotic calcifications are present in the intracranial segments of the internal carotid arteries. Old lacunar infarct in the left basal ganglia is unchanged. Imaged portions of the paranasal sinuses and mastoid air cells are clear. The orbits appear normal. There are no acute fractures of the calvaria or scalp swelling. Impression: No acute intracranial hemorrhage, no evidence of acute territorial infarction or other acute intracranial disease process. ACT 112: Negative or not required by law. Electronically signed by: Marlo Gibbs M.D. 03/08/2022 10:38 AM Code Status & VTE Plan VTE Prophylaxis Plan VTE Prophylaxis will be ordered: Yes
[2022-03-08] MEDS ORDERED: CARBOHYDRATES FOR HYPOGLYCEMIA PO PRN (14:22)
[2022-03-08] MEDS ORDERED: ACETAMINOPHEN 325 MG TAB PO PRN (14:22)
[2022-03-08] MEDS ORDERED: GLUCOSE 40% GEL 15 GM TUBE PO PRN (14:22)
[2022-03-08] MEDS ORDERED: GLUCOSE 10 TAB/TUBE PO PRN (14:22)
[2022-03-08] MEDS ORDERED: DEXTROSE 50% 50 ML SYRINGE IV PRN (14:22)
[2022-03-08] MEDS ORDERED: GLUCAGON FOR INJ 1 MG VIAL SQ PRN (14:22)
[2022-03-08] MEDS: METOPROLOL SUCC 25MG EXT REL TAB PO SCH (14:37)
[2022-03-08] MEDS: INSULIN ASPART PER UNIT SC SCH ×2 (17:36→21:51)
[2022-03-08] MEDS ORDERED: metroNIDAZOLE 500 MG/100 ML BAG IV SCH (18:00)
[2022-03-08] MEDS: metroNIDAZOLE 500 MG/100 ML BAG IV SCH (18:28)
[2022-03-08] MEDS: traZODone HCL 50 MG TAB PO SCH (21:51)
[2022-03-08] MEDS: CEFEPIME 2,000 MG in SYRINGE 0 ML IV SCH (22:17)
[2022-03-09] MEDS: metroNIDAZOLE 500 MG/100 ML BAG IV SCH ×3 (01:30→18:05)
[2022-03-09 07:17] LABS: Basophils # (auto) 0.05 K/uL (0-0.2); Basophils % (auto) 0.3 %; Eosinophils # (auto) 0.02 K/uL (0-0.50); Eosinophils % (auto) 0.1 %; Hematocrit (blood only) 35.3 % (34.1-44.9); Hemoglobin 11.6 g/dl (12.0-16.0); Immature Granulocytes # (auto) 0.16 K/uL (0.00-0.02); Immature Granulocytes % (auto) 0.8 %; Lymphocytes # (auto) 2.62 K/uL (1.2-3.4); Lymphocytes % (auto) 13.4 %; Mean Corpuscular Hemoglobin 31.4 pg (25.0-34.0); Mean Corpuscular Hgb Conc 32.9 g/dL (32.0-36.0); Mean Corpuscular Volume 95.4 fL (80.0-100.0); Mean Platelet Volume 9.3 fL (9.4-12.3); Monocytes # (auto) 1.21 K/uL (0.24-0.82); Monocytes % (auto) 6.2 %; Neutrophils # (auto) 15.56 K/uL (1.4-6.5); Neutrophils % (auto) 79.2 %; Platelet Count 281 K/uL (130-400); RDW Coefficient of Variation 14.1 % (11.5-14.5); RDW Standard Deviation 48.5 fL (36.4-46.3); White Blood Count 19.62 K/ul (4.8-10.8)
[2022-03-09 07:38] LABS: Calcium 8.4 mg/dl (8.5-10.1); Creatinine Clr Calc Pharmacy 46.5 ml/min; Est GFR (African American) 63.4 ml/min; Est GFR (Non-African American) 54.7 ml/min; Potassium 3.7 mmol/L (3.5-5.1)
--- NOTE | 2022-03-09 08:41 | Surgery Consultation ---
Date of Consultation March 09, 2022 Assessment & Plan (1) Acute diverticulitis: 76-year-old female with acute diverticulitis without evidence of perforation. Acute UTI. No indication for surgical intervention at this time. Will attempt to manage with conservative measures. Continue with NPO status. IVF, pain management, antibiotics and medical management per primary team. Patient complaining of indigestion- will order PRN Mylanta/Maalox. Reviewed patient plan with Dr. Reyna. Supervising Physician Co-Signing Physician Notes Dr. Reynapatient apparently had a fall several days ago and was having some vomiting recently and brought to the emergency room She has evidence of a UTI and also some inflammation in the area of her sigmoid colon consistent with sigmoid diverticulitis with a small amount of fluid This does not appear to be an abscess nor does it have any gas within it She has minimal pain Currently she is on IV antibiotics Would keep her limited p.o. with ice only for approximately 48 hours and then begin clear liquids Favor nonoperative treatment History of Present Illness Reason for Consultation: Acute diverticulitis Attending Physician: Elyse Roland MD History of Present Illness Steffany is a 76-year-old female with past medical history significant for CAD, dementia, diverticulitis. Steffany was most recently hospitalized with diverticulitis in Nov, 2021, which was managed with conservative measures. GI did see patient during hospitalization and outpatient colonoscopy was recommended, but patient declined.. Patient is currently on daily Plavix and Aspirin. She is a current resident of [facility] [place]. Per ED notes, patient sustained a fall and hit her head 4 days ago. Staff at [facility] noticed that patient started to have episodes of vomiting and started to become more confused. Patient has elevated WBC at 19.62, acute UTI, CT of head shows No acute intracranial hemorrhage, no evidence of acute territorial infarction or other acute intracranial disease process, CT without contrast of a bdomen and pelvis shows findings that are compatible with acute diverticulitis without evidence of perforation. Overall the degree of inflammation is somewhat less than on the prior exam. Compliant appearing adjacent fluid foci are seen which are considered less likely to represent abscess, however this cannot be entirely excluded on a noncontrast exam. 2. Cholelithiasis without cholecystitis 3. Nonobstructive nephrolithiasis. Currently, Steffany reports some discomfort in her abdomen. She denies any nausea. Allergies Allergy/AdvReac Type Severity Reaction Status Date / Time tomato Allergy Mild Rash Verified 12/17/21 05:31 latex Allergy Unknown ? Unverified 02/24/21 21:44 haloperidol [From Haldol] AdvReac Severe vfib Verified 12/17/21 05:32 acetaminophen [From Vicodin] AdvReac Intermediate hallucinati Verified 12/17/21 05:31 ons hydrocodone AdvReac Mild HALLUCINATI Verified 02/24/21 21:44 ONS niacin AdvReac Mild Flushing Verified 12/17/21 05:31 Home Medications Medication Instructions Recorded Confirmed Type acetaminophen 650 mg 1,300 mg PO Q8H PRN Pain 12/16/21 03/08/22 History tablet,extended release (Arthritis Pain Relief (acetaminophen) ER) clopidogrel 75 mg tablet 75 mg PO DAILY 12/16/21 03/08/22 History donepezil 10 mg tablet 10 mg PO DAILY 12/16/21 03/08/22 History duloxetine 60 mg capsule,delayed 60 mg PO DAILY 12/16/21 03/08/22 History release ezetimibe 10 mg tablet 10 mg PO DAILY 12/16/21 03/08/22 History glimepiride 1 mg tablet 1 mg PO DAILY 12/16/21 03/08/22 History metoprolol succinate 25 mg 25 mg PO DAILY 12/16/21 03/08/22 History tablet,extended release 24 hr oxybutynin chloride 5 mg tablet 5 mg PO DAILY 12/16/21 03/08/22 History pantoprazole 40 mg tablet,delayed 40 mg PO DAILY 12/16/21 03/08/22 History release pioglitazone 45 mg tablet 45 mg PO DAILY 12/16/21 03/08/22 History pravastatin 10 mg tablet 10 mg PO DAILY 12/16/21 03/08/22 History lisinopril 20 mg tablet 20 mg PO DAILY #30 tabs 12/20/21 03/08/22 Rx trazodone 50 mg tablet 25 mg PO QPM 03/08/22 03/08/22 History Patient History Medical History CAD (coronary artery disease) DMII (diabetes mellitus, type 2) HLD (hyperlipidemia) HTN (hypertension) Overactive bladder Social History Smoking Status: Never smoker Second Hand Exposure: No; Hx Alcohol Use: No Hx Substance Use: No Preferred Language: French Communication Ability: Effective [employer] Service Specialist Required: No Beliefs That Will Affect Care: None marital status: / Current Living Situation: Personal Care Facility Other Information That Helps Us Care for You: No Feels Safe at Home: Yes Safety Concerns: Feels Safe At This Time Assistive Devices: Walker Review of Systems Constitutional: no fever and no chills Respiratory: no cough and no chest congestion Gastrointestinal: + abdominal pain; no nausea and no vomiting Physical Exam Constitutional: WD/WN, vitals as above Respiratory: normal respiratory effort; no respiratory distress and no labored breathing Gastrointestinal (Abdomen): Inspection/Auscultation: abdomen not distended Percussion/Palpation: + abdomen tender (tender with palpation in right and left lower quadrants) and abdomen soft; no guarding and abdomen not rigid Psychiatric: Orientation: oriented to person, oriented to place and cooperative Results & Data ([facility]) Vital Signs (Past 12 Hours) Vital Signs Temp Pulse Pulse Resp BP BP Pulse Ox 03/09/22 07:07 36.5 C 79 16 151/85 H 93 03/09/22 06:26 89 134/84 03/08/22 21:06 36.9 C 77 16 179/84 H 94 O2 Del Method 03/09/22 07:07 Room Air 03/09/22 06:26 03/08/22 21:06 Room Air PG Care Time/CCT Total # of Minutes Spent Total Time Spent with Patient: Total time spent is greater than 50% in coordination of care (as documented) at patient's floor/unit and/or counseling patient: Coding Level of Care Code 05257 INT INP/OBS CARE 2/55MIN Diagnoses Acute diverticulitis K57.92
[2022-03-09] MEDS: INSULIN ASPART PER UNIT SC SCH ×3 (08:48→18:12)
[2022-03-09] MEDS: CLOPIDOGREL BISULFATE 75 MG TAB PO SCH (09:01)
[2022-03-09] MEDS: PANTOprazole 40 MG TAB PO SCH (09:01)
[2022-03-09] MEDS: DULoxetine HCL 60 MG CAP PO SCH (09:02)
[2022-03-09] MEDS: DONEPEZIL HCL 10 MG TAB PO SCH (09:02)
[2022-03-09] MEDS: PRAVASTATIN SOD 10 MG TAB PO SCH (09:02)
[2022-03-09] MEDS: lisinopril 20 MG TAB PO SCH (09:02)
[2022-03-09] MEDS: EZETIMIBE 10 MG TABLET PO SCH (09:02)
[2022-03-09] MEDS: OXYBUTYNIN CHLORIDE 5 MG TAB PO SCH (09:02)
[2022-03-09] MEDS ORDERED: ALUMINUM/MAGNESIUM/SIMETH (MAALOX MAX) 30 ML UDC PO PRN (09:09)
[2022-03-09] MEDS: CEFEPIME 2,000 MG in SYRINGE 0 ML IV SCH ×2 (09:29→21:25)
[2022-03-09] MEDS: METOPROLOL SUCC 25MG EXT REL TAB PO SCH (09:29)
[2022-03-09] MEDS ORDERED: SODIUM CHLORIDE 0.9% 1000ML 1,000 ML IV SCH (09:30)
[2022-03-09] MEDS ORDERED: Nursing to Pharmacy Communication SCH (10:15)
--- NOTE | 2022-03-09 14:58 | Hospitalist Progress Note ---
Date of Service March 09, 2022 Assessment & Plan (1) Acute diverticulitis: Plan: Per admitting service notes with addendum: (1) Metabolic encephalopathy: (2) Acute UTI (urinary tract infection): (3) History of recent fall: (4) Diverticulitis large intestine: (5) HTN (hypertension): (6) DMII (diabetes mellitus, type 2): (7) CAD (coronary artery disease): (8) Overactive bladder: (9) HLD (hyperlipidemia): Plan Acute encephalopathy 2/2 UTI + Diverticulitis: -mental status improved on examination -UCx sent -CT abd: Findings are compatible with acute diverticulitis without evidence of perforation. Overall the degree of inflammation is somewhat less than on the prior exam. Compliant appearing adjacent fluid foci are seen which are considered less likely to represent abscess. -pt received unasyn in the ER -will do cefepime and flagyl ---- discharge on PO -upon review of the [facility] chart: pt is not on chronic macrobid anymore -Reviewed labs from ER: BMP, CBC, TSH -PT/OT -Cr is slightly elevated ---- receiving IVF ---- will monitor BMP 03/09 Mental status back to baseline Urine culture: Gram-negative bacilli Blood cultures: Pending General surgery consulted for possible abscess collection, felt unlikely N.p.o. for now, monitor closely IV fluids IV cefepime plus Flagyl day #1 Recent fall: -CT head: no acute finding -at bedside: pt denied any pain -PT/OT: walks with walker at baseline -Continue PT and OT evaluation HTN & CAD: -BP is elevated but pt did not get her morning meds -will do metoprolol now 03/09 Blood pressure seems to be improving Continue lisinopril, Toprol DM II: -hold oral DMII - ISS HLD/Overactive bladder/GERD: -continue home meds Diet: DM II and heart healthy DVT PPx: SCD (due to having recent fall + head trauma) Code Status: DNR/DNI (verified with pt's daughter - Kenyetta) Emergency Contact: Kenyetta Cha [phone] Admission and Anticipated Discharge Date Admission Date: March 08, 2022 Subjective Follow-up for acute diverticulitis, etc. Seen resting in bed, sitting up, watching TV States she feels better compared to yesterday Left lower quadrant pain improving No nausea vomiting, fevers or chills Does report dysuria and urgency No other symptoms Review of Systems Review of Systems: all noted and negative except for above Physical Exam Physical Exam: General- oriented x 3, not in distress, speaks in sentences with no effort or accessory muscle use Eyes- anicteric Neck- no JVD Lungs- clear breath sounds bilaterally, no rales/wheezes Heart- normal rate, regular rhythm; no murmurs Abdomen- normal bowel sounds, nondistended, soft, Extremities- no pretibial edema, no calf tenderness Neuro- alert, oriented x 3; no gross focal neurologic deficits Skin- warm & dry Results & Data Results & Data ([facility]) Vital Signs (Past 12 Hours) Vital Signs Temp Pulse Resp BP BP Pulse Ox O2 Del Method 03/09/22 07:07 36.5 C 79 16 151/85 H 93 Room Air 03/09/22 06:26 89 134/84
[2022-03-09] MEDS ORDERED: PROMETHAZINE HCL 12.5 MG in SODIUM CHLORIDE 0.9% 50 ML IV PRN (15:01)
[2022-03-09] MEDS: D5W AND NSS 1,000 ML IV SCH (15:54)
[2022-03-09] MEDS ORDERED: ONDANSETRON INJ 2 MG/ML 2 ML VIAL IV STA (19:50)
[2022-03-09] MEDS: traZODone HCL 50 MG TAB PO SCH (21:25)
--- NOTE | 2022-03-09 21:32 | Electrocardiogram Report ---
Test Reason : Blood Pressure : / mmHG Vent. Rate : 116 BPM Atrial Rate : 116 BPM P-R Int : 200 ms QRS Dur : 074 ms QT Int : 344 ms P-R-T Axes : 054 -30 062 degrees QTc Int : 478 ms Poor data quality, interpretation may be adversely affected Sinus tachycardia Left axis deviation Inferior infarct , age undetermined Cannot rule out Anterior infarct , age undetermined Abnormal ECG When compared with ECG of 16-DEC-2021 16:20, Premature ventricular complexes are no longer Present Vent. rate has increased BY 57 BPM Minimal criteria for Anterior infarct are now Present Confirmed by Brennan Aguirre ([id number]) on 03/09/2022 9:32:42 PM Referred By: [facility] Confirmed By:Brennan Aguirre
[2022-03-10] MEDS: INSULIN ASPART PER UNIT SC SCH ×5 (00:08→22:24)
[2022-03-10] MEDS: metroNIDAZOLE 500 MG/100 ML BAG IV SCH ×2 (02:34→12:11)
[2022-03-10] MEDS: D5W AND NSS 1,000 ML IV SCH ×2 (03:58→12:47)
[2022-03-10 09:01] LABS: Albumin Globulin Ratio 1.2 (0.9-2); Albumin Level 2.8 gm/dl (3.4-5.0); Bilirubin,Total 0.7 mg/dl (0.2-1.0); Calcium 7.9 mg/dl (8.5-10.1); Creatinine Clr Calc Pharmacy 49.5 ml/min; Est GFR (African American) 68.3 ml/min; Est GFR (Non-African American) 58.9 ml/min; Globulin 2.3 gm/dl (2.5-4.0); Magnesium 1.7 mg/dl (1.7-2.4); Potassium 3.6 mmol/L (3.5-5.1); Total Protein 5.1 gm/dl (6.0-8.3)
[2022-03-10 09:32] LABS: Basophils # (auto) 0.05 K/uL (0-0.2); Basophils % (auto) 0.4 %; Eosinophils # (auto) 0.27 K/uL (0-0.50); Hematocrit (blood only) 27.6 % (34.1-44.9); Immature Granulocytes # (auto) 0.12 K/uL (0.00-0.02); Immature Granulocytes % (auto) 0.9 %; Lymphocytes % (auto) 22.5 %; Mean Corpuscular Hemoglobin 31.6 pg (25.0-34.0); Mean Corpuscular Hgb Conc 32.6 g/dL (32.0-36.0); Mean Corpuscular Volume 96.8 fL (80.0-100.0); Mean Platelet Volume 9.4 fL (9.4-12.3); Monocytes # (auto) 0.84 K/uL (0.24-0.82); Monocytes % (auto) 6.3 %; Neutrophils # (auto) 9.05 K/uL (1.4-6.5); Neutrophils % (auto) 67.9 %; Platelet Count 185 K/uL (130-400); RDW Coefficient of Variation 14.3 % (11.5-14.5); RDW Standard Deviation 49.5 fL (36.4-46.3); Red Blood Count 2.85 M/uL (3.93-5.22); White Blood Count 13.33 K/ul (4.8-10.8)
--- NOTE | 2022-03-10 09:45 | Surgery Progress Note ---
Date of Service March 10, 2022 Assessment & Plan (1) Acute diverticulitis: Plan: We will start clear liquids Continue IV antibiotics Monitor patient's progress If she worsens we may consider repeat CAT scan Admission and Anticipated Discharge Date Admission Date: March 08, 2022 Subjective Patient is resting comfortably in bed Her abdomen is soft she has minimal tenderness Treating her for diverticulitis and urinary tract infection Her white blood cell count has come down Review of Systems Constitutional: no fever and no chills Respiratory: no cough and no chest congestion Gastrointestinal: no nausea and no vomiting Results & Data ([facility]) Vital Signs (Past 12 Hours) Vital Signs Temp Pulse Resp BP Pulse Ox O2 Del Method 03/10/22 07:23 36.6 C 60 18 106/61 97 Room Air PG Care Time/CCT Total # of Minutes Spent Total Time Spent with Patient: Total time spent is greater than 50% in coordination of care (as documented) at patient's floor/unit and/or counseling patient: Coding Level of Care Code 56221 SUB INP/OBS CARE 03/19MIN Diagnoses Acute diverticulitis K57.92
[2022-03-10] MEDS ORDERED: PIPERACILLIN/TAZOBACTAM 4.5 GM in DEXTROSE 5% 100 ML IV SCH (10:45)
[2022-03-10] MEDS ORDERED: OPTIRAY 350 100ml IV ONE (10:45)
[2022-03-10 10:47] LABS: Base Excess ABG -5.5 mEq/L (-9-1.8); HCO3 ABG 18 mmol/L (19-24); Oxygen Saturation ABG 97.9 % (90-95); PCO2 ABG 29 mmHg (35-46); PO2 ABG 78 mmHg (80-95)
[2022-03-10] MEDS: METOPROLOL SUCC 25MG EXT REL TAB PO SCH (10:59)
[2022-03-10] MEDS: DULoxetine HCL 60 MG CAP PO SCH (10:59)
[2022-03-10] MEDS: DONEPEZIL HCL 10 MG TAB PO SCH (10:59)
[2022-03-10] MEDS ORDERED: PIPERACILLIN/TAZOBACTAM 4.5 GM (over 30 mins) IV ONE (11:00)
--- NOTE | 2022-03-10 11:03 | CT Scan Report ---
CT head/brain wo con CLINICAL HISTORY: 76 years-old Female with drowsiness, altered mental status. Acutely altered mental status TECHNIQUE: Multiple axial CT images of the head were obtained without contrast. A dose lowering tech nique was utilized adhering to the principles of ALARA. CT DOSE: 2009.97 mGy.cm COMPARISON: Head CT March 08, 2022 FINDINGS: No acute intracranial hemorrhage, midline shift, intracranial mass, hydrocephalus, territorial ischem ia or abnormal extra-axial collection. Involutional changes with ex vacuo ventriculomegaly. Advanced chronic microvascular ischemic disease. Cerebral vascular calcifications. 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 1.7 cm chronic infarct of the left frontal lobe leo radiata. The calvarium is intact. Prior bilateral lens repair. The paranasal sinuses, mastoid air cells, and m iddle ear cavities are clear. IMPRESSION: No acute intracranial abnormality. ACT 112: Negative or not required by law. The above report was generated using voice recognition software. It may contain grammatical, syntax o r spelling errors. Electronically signed by: Kody Alaniz M.D. 03/10/2022 11:01 AM
[2022-03-10 11:27] LABS: Allen Test Pos (Pos)
--- NOTE | 2022-03-10 11:31 | CT Scan Report ---
ABDOMEN AND PELVIS CT WITH IV CONTRAST HISTORY: Follow up study in a patient with acute diverticulitis of the large bowel. FF UP ACUTE DIVE RTICULITIS, R/O ABSCESS TECHNIQUE: Multiaxial CT images of the abdomen and pelvis were performed following the IV administrat ion of 91 cc of Optiray, A dose lowering technique was utilized adhering to the principles of ALARA. COMPARISON STUDY: CT abdomen and pelvis March 08, 2022, 12/16/2021 FINDINGS: Calcified mediastinal and right hilar lymph nodes. Small pleural effusions with mild depend ent bibasilar consolidation suggestive of atelectasis. No pneumatosis or pneumoperitoneum. Scattered calcified granulomata of the liver and spleen. Mildly atrophic pancreas. Unremarkable adrenal glands. Cholelithiasis without CT evidence of acute cholecystitis. Subcentimeter cyst of the hepatic dome. P atency of the hepatic and portal veins. Cortical scarring with parenchymal thinning of the left greater than right kidneys. There are least 3 nonobstructing calculi left kidney measuring up to 3 mm. There are at least 2 nonobstructing calculi of the right kidney measuring up to 3 mm. Intermediate density 2.1 cm exophytic lesion of the superi or pole right kidney is stable from prior suggestive of a mildly complex cyst. No ureteral calculi or hydronephrosis identified. Unremarkable urinary bladder, uterus and adnexa. Atherosclerosis of the a sigrid and branch vessels. No lymphadenopathy. Mild nonspecific distal esophageal wall thickening with small hiatal hernia. Findings of acute divert iculitis are redemonstrated with moderate wall thickening throughout the proximal to mid sigmoid colo n, similar to prior. There are 2 foci of loculated fluid again noted within the adjacent sigmoid meso colon measuring up to approximately 1.7 cm. Findings appear similar dating back to 12/16/2021 exam wi th small fluid-filled tract extending towards the sigmoid. No drainable fluid collection. Moderate co lonic fecal retention. Normal appendix. Unremarkable soft tissues. Atrophy of the paraspinal muscular atrophy. Degenerative changes of the spine, pelvis and right hip. Left hip total joint arthroplasty. Sigmoidal thoracolumbar scoliosis. 30% T8 compression deformity appears unchanged IMPRESSION: 1. Stable appearance of the acute sigmoid diverticulitis. No bowel obstruction or pneumoperitoneum. 2. There are two small loculated fluid collections within the adjacent sigmoid mesocolon measuring up to 1.7 cm which appear similar dating back to be 12/16/2021 study and may represent small abscesses with small sinus tracts contiguous with the adjacent colon. No drainable fluid collection identified. 3. Nonobstructing bilateral nephrolithiasis. 4. Cholelithiasis. 5. Small pleural effusions with bibasilar atelectasis. 6. Additional findings as above. ACT 112: Negative or not required by law. The above report was generated using voice recognition software. It may contain grammatical, syntax o r spelling errors. Electronically signed by: Kody Alaniz M.D. 03/10/2022 11:29 AM
[2022-03-10] MEDS: CEFEPIME 2,000 MG in SYRINGE 0 ML IV SCH (11:49)
[2022-03-10] MEDS: CLOPIDOGREL BISULFATE 75 MG TAB PO SCH (11:49)
[2022-03-10] MEDS: lisinopril 20 MG TAB PO SCH (11:59)
[2022-03-10] MEDS: PRAVASTATIN SOD 10 MG TAB PO SCH (12:00)
[2022-03-10] MEDS: PANTOprazole 40 MG TAB PO SCH (12:00)
[2022-03-10] MEDS: OXYBUTYNIN CHLORIDE 5 MG TAB PO SCH (12:00)
[2022-03-10] MEDS: EZETIMIBE 10 MG TABLET PO SCH (12:00)
[2022-03-10 12:47] LABS: Lyme Ab IgG w/WB Rflx Negative (Negative); Lyme Ab IgM w/WB Rflx Negative (Negative)
--- NOTE | 2022-03-10 16:56 | Hospitalist Progress Note ---
Date of Service March 10, 2022 Assessment & Plan (1) Acute diverticulitis: Plan: Per admitting service notes with addendum: (1) Metabolic encephalopathy: (2) Acute UTI (urinary tract infection): (3) History of recent fall: (4) Diverticulitis large intestine: (5) HTN (hypertension): (6) DMII (diabetes mellitus, type 2): (7) CAD (coronary artery disease): (8) Overactive bladder: (9) HLD (hyperlipidemia): Plan Acute encephalopathy 2/2 UTI + Diverticulitis: -mental status improved on examination -UCx sent -CT abd: Findings are compatible with acute diverticulitis without evidence of perforation. Overall the degree of inflammation is somewhat less than on the prior exam. Compliant appearing adjacent fluid foci are seen which are considered less likely to represent abscess. -pt received unasyn in the ER -will do cefepime and flagyl ---- discharge on PO -upon review of the [facility] chart: pt is not on chronic macrobid anymore -Reviewed labs from ER: BMP, CBC, TSH -PT/OT -Cr is slightly elevated ---- receiving IVF ---- will monitor BMP 03/09 Mental status back to baseline Urine culture: Gram-negative bacilli Blood cultures: Pending 03/10 Mental status seems to be back to baseline Urine culture E. coli pansensitive except Bactrim Blood cultures: No growth so far Repeat blood culture: Pending General surgery consulted for possible abscess collection, felt unlikely Diet advanced IV cefepime plus Flagyl day #2 --> transition to IV Zosyn Symptomatic bradycardia Episode of unresponsiveness associated with sinus bradycardia first-degree AV block, heart rate 46 Resolved with atropine 1 g IV Echocardiogram ordered TSH normal Troponin negative --Hold metoprolol XL --We will consult cardiology Called patient's daughter Kenyetta over the phone for update Discussed patient's condition in detail and at length Kenyetta confirms that patient is a DNR and has advanced directives Also confirms that if patient goes into bradycardia or tachycardia, no medical intervention to be given as per advanced directives Patient has very poor quality of life according to patient's daughter Kenyetta Recent fall: -CT head: no acute finding -at bedside: pt denied any pain -PT/OT: walks with walker at baseline -Continue PT and OT evaluation HTN & CAD: 03/09 Hold lisinopril and metoprolol given blood pressure on the low normal side, symptomatic bradycardia this morning DM II: -hold oral DMII - ISS HLD/Overactive bladder/GERD: -continue home meds Diet: DM II and heart healthy DVT PPx: SCD (due to having recent fall + head trauma) Code Status: DNR/DNI (verified with pt's daughter - Kenyetta) Emergency Contact: Kenyetta Cha [phone] plan of care discussed with patient's daughter Kenyetta in detail and at length all questions answered She is understanding, agreeable, comfortable with the plan of care Admission and Anticipated Discharge Date Admission Date: March 08, 2022 Subjective Follow-up for acute diverticulitis, UTI, etc. Notified by RN that patient is difficult to arouse Seen immediately at the bedside Blood pressure 118/72, 97% on room air, heart rate 52 Patient not responding to sternal rub Twelve-lead EKG showing sinus bradycardia with first-degree AV block, heart rate 46 Code purple called, atropine 1 mg given Heart rate improved to high 90s, low 100s Patient started to respond more with pain stimuli Blood pressure remained stable Stat CT head: Unrevealing Stat CT abdomen pelvis: Stable acute diverticulitis and small fluid collection Transfer to PCU At room 460, patient now more conversant, denies chest pain, shortness of breath, headache, abdominal pain' Requesting for water, [employer] Called patient's daughter Kenyetta over the phone for update Discussed patient's condition in detail and at length Kenyetta confirms that patient is a DNR and has advanced directives Also confirms that if patient goes into bradycardia or tachycardia, no medical intervention to be given as per advanced directives Patient has very poor quality of life according to patient's daughter Kenyetta Review of Systems Review of Systems: all noted and negative except for above Physical Exam Physical Exam: General- oriented x 1, not in distress, speaks in sentences with no effort or accessory muscle use Eyes- anicteric Neck- no JVD Lungs- clear breath sounds bilaterally, no rales/wheezes Heart- normal rate, regular rhythm; no murmurs Abdomen- normal bowel sounds, nondistended, soft, nontender Extremities- no pretibial edema, no calf tenderness Neuro- alert, oriented x 1; no gross focal neurologic deficits Skin- warm & dry Results & Data Results & Data ([facility]) Vital Signs (Past 12 Hours) Vital Signs Temp Pulse Pulse Pulse Resp BP Pulse Ox 03/10/22 16:29 62 03/10/22 15:36 36.4 C L 73 18 123/72 93 03/10/22 11:21 73 03/10/22 09:55 03/10/22 09:50 52 L 14 118/69 97 03/10/22 10:24 74 16 94 03/10/22 07:23 36.6 C 60 18 106/61 97 O2 Del Method 03/10/22 16:29 03/10/22 15:36 Room Air 03/10/22 11:21 03/10/22 09:55 Room Air 03/10/22 09:50 Room Air 03/10/22 10:24 Room Air 03/10/22 07:23 Room Air all noted and reviewed including below
[2022-03-10] MEDS: PIPERACILLIN/TAZOBACTAM 3.375 GM CI (over 4 hrs) IV SCH (18:54)
[2022-03-10] MEDS ORDERED: ATROPINE SULFATE 0.1 MG/ML 10ML SYR IV ONE (20:00)
[2022-03-10] MEDS ORDERED: SODIUM CHLORIDE 0.9% 10ML FLUSH IV ONE (20:00)
[2022-03-10] MEDS ORDERED: SODIUM CHLORIDE 0.9% 1000 ML BAG IV ONE (20:00)
[2022-03-11] MEDS: PIPERACILLIN/TAZOBACTAM 3.375 GM CI (over 4 hrs) IV SCH ×3 (02:46→18:03)
[2022-03-11 05:10] LABS: Basophils # (auto) 0.04 K/uL (0-0.2); Basophils % (auto) 0.4 %; Eosinophils # (auto) 0.38 K/uL (0-0.50); Hematocrit (blood only) 27.6 % (34.1-44.9); Hemoglobin 8.8 g/dl (12.0-16.0); Immature Granulocytes # (auto) 0.04 K/uL (0.00-0.02); Immature Granulocytes % (auto) 0.4 %; Lymphocytes # (auto) 3.01 K/uL (1.2-3.4); Lymphocytes % (auto) 31.6 %; Mean Corpuscular Hemoglobin 31.4 pg (25.0-34.0); Mean Corpuscular Hgb Conc 31.9 g/dL (32.0-36.0); Mean Corpuscular Volume 98.6 fL (80.0-100.0); Mean Platelet Volume 9.4 fL (9.4-12.3); Monocytes # (auto) 0.58 K/uL (0.24-0.82); Monocytes % (auto) 6.1 %; Neutrophils # (auto) 5.48 K/uL (1.4-6.5); Neutrophils % (auto) 57.5 %; Platelet Count 194 K/uL (130-400); RDW Coefficient of Variation 14.4 % (11.5-14.5); RDW Standard Deviation 50.8 fL (36.4-46.3); White Blood Count 9.53 K/ul (4.8-10.8)
[2022-03-11 05:34] LABS: Albumin Globulin Ratio 1.1 (0.9-2); Albumin Level 2.8 gm/dl (3.4-5.0); BUN Creatinine Ratio 18.9 (10-20); Bilirubin,Total 0.6 mg/dl (0.2-1.0); Calcium 8.1 mg/dl (8.5-10.1); Est GFR (African American) 67.4 ml/min; Est GFR (Non-African American) 58.2 ml/min; Globulin 2.5 gm/dl (2.5-4.0); Magnesium 1.5 mg/dl (1.7-2.4); Potassium 3.5 mmol/L (3.5-5.1); Total Protein 5.3 gm/dl (6.0-8.3)
--- NOTE | 2022-03-11 06:02 | Electrocardiogram Report ---
Test Reason : Blood Pressure : / mmHG Vent. Rate : 046 BPM Atrial Rate : 046 BPM P-R Int : 228 ms QRS Dur : 074 ms QT Int : 538 ms P-R-T Axes : 033 -16 057 degrees QTc Int : 470 ms Sinus bradycardia with 1st degree A-V block Otherwise normal ECG When compared with ECG of 08-MAR-2022 09:47, Vent. rate has decreased BY 70 BPM Minimal criteria for Anterior infarct are no longer Present Confirmed by Ernesto Romero ([id number]) on 03/11/2022 6:01:52 AM Referred By: [facility] Confirmed By:Ernesto Romero
--- NOTE | 2022-03-11 06:04 | Electrocardiogram Report ---
Test Reason : Blood Pressure : / mmHG Vent. Rate : 099 BPM Atrial Rate : 099 BPM P-R Int : 188 ms QRS Dur : 078 ms QT Int : 390 ms P-R-T Axes : 035 -18 034 degrees QTc Int : 500 ms Sinus rhythm with Premature atrial complexes Inferior infarct , age undetermined Prolonged QT Abnormal ECG When compared with ECG of 10-MAR-2022 10:06, Vent. rate has increased by 53 bpm Confirmed by Ernesto Romero ([id number]) on 03/11/2022 6:04:07 AM Referred By: [facility] Confirmed By:Ernesto Romero
[2022-03-11] MEDS: D5W AND NSS 1,000 ML IV SCH ×2 (07:12→18:03)
--- NOTE | 2022-03-11 08:21 | Surgery Progress Note ---
Date of Service March 11, 2022 Assessment & Plan (1) Acute diverticulitis: Plan: Continue nonoperative management Continue IV antibiotics Advance diet to full liquids and medical team can advance as tolerated Consider repeat CAT scan in 1 to 2 weeks depending on patient's progress Admission and Anticipated Discharge Date Admission Date: March 08, 2022 Subjective Patient does not seem to be having significant pain from diverticulitis Her vital signs are stable Review of Systems Constitutional: no fever and no chills Respiratory: no cough and no chest congestion Gastrointestinal: no nausea and no vomiting Physical Exam Physical Exam: Her abdomen is soft Results & Data ([facility]) Vital Signs (Past 12 Hours) Vital Signs Temp Pulse Pulse Resp BP Pulse Ox O2 Del Method 03/11/22 02:48 36.8 C 72 18 115/61 97 Room Air 03/11/22 00:00 81 PG Care Time/CCT Total # of Minutes Spent Total Time Spent with Patient: Total time spent is greater than 50% in coordination of care (as documented) at patient's floor/unit and/or counseling patient: Coding Level of Care Code 22636 SUB INP/OBS CARE 03/19MIN Diagnoses Acute diverticulitis K57.92
[2022-03-11] MEDS: OXYBUTYNIN CHLORIDE 5 MG TAB PO SCH (09:27)
[2022-03-11] MEDS: EZETIMIBE 10 MG TABLET PO SCH (09:27)
[2022-03-11] MEDS: PRAVASTATIN SOD 10 MG TAB PO SCH (09:28)
[2022-03-11] MEDS: PANTOprazole 40 MG TAB PO SCH (09:28)
[2022-03-11] MEDS: lisinopril 20 MG TAB PO SCH (09:28)
[2022-03-11] MEDS: INSULIN ASPART PER UNIT SC SCH ×4 (09:31→20:46)
--- NOTE | 2022-03-11 18:55 | Hospitalist Progress Note ---
Date of Service March 11, 2022 Assessment & Plan (1) Acute diverticulitis: Plan: Per admitting service notes with addendum: (1) Metabolic encephalopathy: (2) Acute UTI (urinary tract infection): (3) History of recent fall: (4) Diverticulitis large intestine: (5) HTN (hypertension): (6) DMII (diabetes mellitus, type 2): (7) CAD (coronary artery disease): (8) Overactive bladder: (9) HLD (hyperlipidemia): Plan Acute encephalopathy 2/2 UTI + Diverticulitis: -CT abd: Findings are compatible with acute diverticulitis without evidence of perforation. Overall the degree of inflammation is somewhat less than on the prior exam. Compliant appearing adjacent fluid foci are seen which are considered less likely to represent abscess. 03/11 Mental status back to baseline Urine culture: E coli Blood cultures: negative General surgery consulted for possible abscess collection, felt unlikely IV cefepime plus Flagyl day #2 --> transitioned to IV Zosyn Day #2 as patient deteriorated, had symptomatic bradycardia repeat CT abdomen: stable acute diverticulitis patient clinically improved today diet advanced to soft continue IV abx monitor closely Symptomatic bradycardia occurred morning of 03/10/22 Episode of unresponsiveness associated with sinus bradycardia first-degree AV block, heart rate 46 Resolved with atropine 1 g IV Echocardiogram ordered: EF 70%, Gr 1 Diastolic dysfunction, no significant stenosis or regurgitation TSH normal Troponin negative --Hold metoprolol XL --consult cardiology service Called patient's daughter Kenyetta over the phone for update Discussed patient's condition in detail and at length Kenyetta confirms that patient is a DNR and has advanced directives Also confirms that if patient goes into bradycardia or tachycardia, no medical intervention to be given as per advanced directives Patient has very poor quality of life according to patient's daughter Kenyetta 03/11 HR stable in the 80s monitor Recent fall: -CT head: no acute finding -at bedside: pt denied any pain -PT/OT: walks with walker at baseline -Continue PT and OT evaluation HTN & CAD: 03/11 continue lisinopril hold metoprolol given symptomatic bradycardia episode requiring atropine DM II: -hold oral DMII - ISS HLD/Overactive bladder/GERD: -continue home meds Diet: DM II and heart healthy DVT PPx: SCD (due to having recent fall + head trauma) Code Status: DNR/DNI (verified with pt's daughter - Kenyetta) Disposition return to SNF when medically stable Admission and Anticipated Discharge Date Admission Date: March 08, 2022 Subjective ff up for acute diverticulitis, UTI, episode of symptomatic bradycardia, etc seen resting in bed, comfortable alert, conversant pleasantly confused no chest pain, dyspnea, palpitations, dizziness states abdominal pain resolved, no nausea/vomiting, fever/chills no other symptoms Review of Systems Review of Systems: all noted and negative except for above Physical Exam Physical Exam: General- oriented x 1, not in distress, speaks in sentences with no effort or accessory muscle use Eyes- anicteric Neck- no JVD Lungs- clear breath sounds bilaterally, no crackles/wheezing Heart- normal rate, regular rhythm; no murmurs Abdomen- normal bowel sounds, nondistended, soft, no tenderness Extremities- no pretibial edema, no calf tenderness Neuro- alert, oriented x 1; no gross focal neurologic deficits Skin- warm & dry Results & Data Results & Data ([facility]) Vital Signs (Past 12 Hours) Vital Signs Temp Pulse Pulse Resp BP Pulse Ox O2 Del Method 03/11/22 18:05 36.8 C 84 20 149/77 H 94 Room Air 03/11/22 17:00 69 03/11/22 11:56 36.6 C 90 19 140/96 99 Room Air 03/11/22 10:27 64 03/11/22 08:33 36.9 C 62 18 139/77 98 Room Air all noted and reviewed including below
[2022-03-12] MEDS: PIPERACILLIN/TAZOBACTAM 3.375 GM CI (over 4 hrs) IV SCH ×2 (01:04→11:17)
[2022-03-12 06:24] LABS: Basophils # (auto) 0.07 K/uL (0-0.2); Basophils % (auto) 0.8 %; Eosinophils # (auto) 0.41 K/uL (0-0.50); Eosinophils % (auto) 4.7 %; Hemoglobin 9.4 g/dl (12.0-16.0); Immature Granulocytes # (auto) 0.06 K/uL (0.00-0.02); Immature Granulocytes % (auto) 0.7 %; Lymphocytes # (auto) 3.35 K/uL (1.2-3.4); Lymphocytes % (auto) 38.8 %; Mean Corpuscular Hemoglobin 31.2 pg (25.0-34.0); Mean Corpuscular Hgb Conc 32.4 g/dL (32.0-36.0); Mean Corpuscular Volume 96.3 fL (80.0-100.0); Monocytes # (auto) 0.63 K/uL (0.24-0.82); Monocytes % (auto) 7.3 %; Neutrophils # (auto) 4.12 K/uL (1.4-6.5); Neutrophils % (auto) 47.7 %; Platelet Count 215 K/uL (130-400); RDW Coefficient of Variation 14.2 % (11.5-14.5); RDW Standard Deviation 49.5 fL (36.4-46.3); Red Blood Count 3.01 M/uL (3.93-5.22); White Blood Count 8.64 K/ul (4.8-10.8)
[2022-03-12 06:54] LABS: Albumin Level 2.9 gm/dl (3.4-5.0); Bilirubin,Total 0.6 mg/dl (0.2-1.0); Calcium 8.3 mg/dl (8.5-10.1); Magnesium 1.4 mg/dl (1.7-2.4); Potassium 3.5 mmol/L (3.5-5.1)
[2022-03-12 07:00] LABS: Albumin Globulin Ratio 1.2 (0.9-2); BUN Creatinine Ratio 11.2 (10-20); Creatinine Clr Calc Pharmacy 43.5 ml/min; Est GFR (African American) 58.4 ml/min; Est GFR (Non-African American) 50.4 ml/min; Globulin 2.5 gm/dl (2.5-4.0); Total Protein 5.4 gm/dl (6.0-8.3)
--- NOTE | 2022-03-12 07:49 | Surgery Progress Note ---
Date of Service March 12, 2022 Assessment & Plan (1) Acute diverticulitis: Plan: Patient tolerating diet Continue IV antibiotics for now and then likely p.o. antibiotics for another 10 days Would repeat CAT scan in 1 to 2 weeks Favor follow-up with primary care doctor and if they need our help they can refer or call us No plan for surgical intervention Admission and Anticipated Discharge Date Admission Date: March 08, 2022 Subjective Patient tolerating diet No complaint of abdominal pain Physical Exam Physical Exam: Abdomen is soft Patient is awake and alert in no distress Results & Data ([facility]) Vital Signs (Past 12 Hours) Vital Signs Temp Pulse Pulse Resp BP Pulse Ox O2 Del Method 03/12/22 07:15 36.7 C 92 H 18 145/82 H 95 Room Air 03/11/22 21:54 87 03/12/22 02:45 36.5 C 62 16 175/74 H 99 Room Air 03/11/22 23:00 36.5 C 78 16 113/67 97 Room Air 03/11/22 20:30 Room Air 03/11/22 19:52 36.4 C L 82 16 146/83 H 97 Room Air PG Care Time/CCT Total # of Minutes Spent Total Time Spent with Patient: Total time spent is greater than 50% in coordination of care (as documented) at patient's floor/unit and/or counseling patient: Coding Level of Care Code 53446 SUB INP/OBS CARE 03/19MIN Diagnoses Acute diverticulitis K57.92
[2022-03-12] MEDS: INSULIN ASPART PER UNIT SC SCH ×4 (08:00→21:55)
[2022-03-12] MEDS: D5W AND NSS 1,000 ML IV SCH ×2 (09:11→15:23)
[2022-03-12] MEDS: OXYBUTYNIN CHLORIDE 5 MG TAB PO SCH (09:13)
[2022-03-12] MEDS: PRAVASTATIN SOD 10 MG TAB PO SCH (09:13)
[2022-03-12] MEDS: EZETIMIBE 10 MG TABLET PO SCH (09:13)
[2022-03-12] MEDS: PANTOprazole 40 MG TAB PO SCH (09:13)
[2022-03-12] MEDS: lisinopril 20 MG TAB PO SCH (09:13)
--- NOTE | 2022-03-12 10:29 | Cardiology Consultation ---
Date of Consultation March 12, 2022 Assessment & Plan (1) Bradycardia: (2) Acute diverticulitis: (3) CAD (coronary artery disease): (4) HTN (hypertension): Plan Patient with an episode of transient bradycardia noted on telemetry earlier this admission, associated with diagnosis of diverticulitis. Its likely this episode was vasovagal in nature with GI complaints. Per outside records, she has a history of bradycardia (noted in 2020) and had been taken off her beta poncho by outside cardiology group. It is uncertain when metoprolol was resumed. Agree with holding metoprolol. Since holding beta poncho, no further bradycardic events noted. Echo earlier this admission with hyperdynamic function, small LV cavity, likely consistent with volume depletion in setting of poor PO intake and diverticulitis. Per hospitalist notes and with patient's underlying dementia, conservative therapies preferred by family. No further cardiac testing warranted at this time. Remain off metoprolol. continue all other home medications including plavix (for history of CVA and CA D), zetia, lisinopril, and pravastatin. Case discussed with Dr. Nuno. Please call slitter helper consulting practice director with additional questions or concerns. Supervising Physician Co-Signing Physician Notes Patient seen and examined with Daily Terry PA-C. Agree with findings and assessment as above. Transient bradycardia noted on telemetry likely vasovagal in nature given the clinical context. No further cardiac test intervention necessary at this time. No medication changes will be made. Please call with questions or concerns. History of Present Illness Reason for Consultation: Bradycardia Requesting Physician: Dr. Rios Attending Physician: Dr. Nuno History of Present Illness Patient is a 76-year-old female with underlying dementia who is unable to provide any significant history at time of consult. Inpatient/outpatient records reviewed. She was admitted several days ago with weakness, abdominal pain. Diagnosed with diverticulitis and UTI. Drmacario admission apparently had an episode of bradycardia with HR's in the 40's, and there was concern she was unresponsive during this time. No pauses or arrhythmias noted. Metoprolol has been placed on hold. Per review of telemetry, no concerning bradycardia or pauses. Per review of Care Everywhere, she was previously followed by [facility] in [place] prior to moving to this area. Last visit in 2021 History includes: CAD with reports of moderate LAD disease (interventions not specified) history of VT/VF History of bradycardia - for which she was taken OFF beta poncho (unsure when this was resumed) History of Multiple CVA's - on Plavix Intolerance to Statins HTN Dyslipidemia Per hospitalist notes, conservative therapies preferred by family. At time of consult, patient resting in bed. Was difficult to awaken. She reports feeling "fine". Declined CP/SOB. The full review of systems was not able to be performed. Allergies Allergy/AdvReac Type Severity Reaction Status Date / Time tomato Allergy Mild Rash Verified 12/17/21 05:31 latex Allergy Unknown ? Unverified 02/24/21 21:44 haloperidol [From Haldol] AdvReac Severe vfib Verified 12/17/21 05:32 acetaminophen [From Vicodin] AdvReac Intermediate hallucinati Verified 12/17/21 05:31 ons hydrocodone AdvReac Mild HALLUCINATI Verified 02/24/21 21:44 ONS niacin AdvReac Mild Flushing Verified 12/17/21 05:31 Home Medications Medication Instructions Recorded Confirmed Type acetaminophen 650 mg 1,300 mg PO Q8H PRN Pain 12/16/21 03/08/22 History tablet,extended release (Arthritis Pain Relief (acetaminophen) ER) clopidogrel 75 mg tablet 75 mg PO DAILY 12/16/21 03/08/22 History donepezil 10 mg tablet 10 mg PO DAILY 12/16/21 03/08/22 History duloxetine 60 mg capsule,delayed 60 mg PO DAILY 12/16/21 03/08/22 History release ezetimibe 10 mg tablet 10 mg PO DAILY 12/16/21 03/08/22 History glimepiride 1 mg tablet 1 mg PO DAILY 12/16/21 03/08/22 History metoprolol succinate 25 mg 25 mg PO DAILY 12/16/21 03/08/22 History tablet,extended release 24 hr oxybutynin chloride 5 mg tablet 5 mg PO DAILY 12/16/21 03/08/22 History pantoprazole 40 mg tablet,delayed 40 mg PO DAILY 12/16/21 03/08/22 History release pioglitazone 45 mg tablet 45 mg PO DAILY 12/16/21 03/08/22 History pravastatin 10 mg tablet 10 mg PO DAILY 12/16/21 03/08/22 History lisinopril 20 mg tablet 20 mg PO DAILY #30 tabs 12/20/21 03/08/22 Rx trazodone 50 mg tablet 25 mg PO QPM 03/08/22 03/08/22 History Patient History Medical History CAD (coronary artery disease) DMII (diabetes mellitus, type 2) HLD (hyperlipidemia) HTN (hypertension) Overactive bladder Social History Smoking Status: Never smoker Second Hand Exposure: No; Hx Alcohol Use: No Hx Substance Use: No Preferred Language: Georgian Communication Ability: Effective Tube Man Required: No Beliefs That Will Affect Care: None marital status: / Current Living Situation: Personal Care Facility Other Information That Helps Us Care for You: No Feels Safe at Home: Yes Safety Concerns: Feels Safe At This Time Assistive Devices: Walker Review of Systems Review of Systems: Unobtainable due to cognitive status Physical Exam Constitutional: WD/WN, vitals as above no acute distress Respiratory: normal respiratory effort, lungs clear to auscultation Cardiovascular: Rate/Rhythm: regular rate and regular rhythm Heart Sounds: + murmur (I/ systolic murmur) Vessels: no JVD Extremities: no edema Gastrointestinal (Abdomen): normal bowel sounds, soft, nontender, no hep atosplenomegaly Results & Data ([facility]) Vital Signs (Past 12 Hours) Vital Signs Temp Pulse Resp BP Pulse Ox O2 Del Method 03/12/22 08:10 58 L 16 170/70 H 94 Room Air 03/12/22 07:15 36.7 C 92 H 18 145/82 H 95 Room Air 03/12/22 02:45 36.5 C 62 16 175/74 H 99 Room Air 03/11/22 23:00 36.5 C 78 16 113/67 97 Room Air Laboratory Results Cardiac Enzymes 03/12/22 Range/Units 06:07 AST 10 L (13-39) U/L CBC 03/12/22 Range/Units 06:07 WBC 8.64 (4.8-10.8) K/ul RBC 3.01 L (3.93-5.22) M/uL Hgb 9.4 L (12.0-16.0) g/dl Hct 29.0 L (34.1-44.9) % Plt Count 215 (130-400) K/uL Neut # (Auto) 4.12 (1.4-6.5) K/uL Lymph # (Auto) 3.35 (1.2-3.4) K/uL Emanuel # (Auto) 0.63 (0.24-0.82) K/uL Eos # (Auto) 0.41 (0-0.50) K/uL Baso # (Auto) 0.07 (0-0.2) K/uL Comprehensive Metabolic Panel 03/12/22 Range/Units 06:07 Sodium 138 (136-145) mmol/L Potassium 3.5 (3.5-5.1) mmol/L Chloride 111 H (98-107) mmol/L Carbon Dioxide 24 (21-32) mmol/L BUN 12 (6-23) mg/dl Creatinine 1.07 (0.6-1.2) mg/dl Glucose 184 H (70-99(Fasting)) mg/dl Calcium 8.3 L (8.5-10.1) mg/dl AST 10 L (13-39) U/L ALT 6 L (7-52) U/L Alkaline Phosphatase 42 (34-104) U/L Total Protein 5.4 L (6.0-8.3) gm/dl Albumin 2.9 L (3.4-5.0) gm/dl Intake and Output 03/11/22 03/12/22 03/12/22 22:59 06:59 14:59 Intake Total 1098 / 1708 115 / 1708 Balance 1098 / 1708 115 / 1708 Intake: IV 1098 / 1328 115 / 1328 D5w and Nss 1,000 ml @ 80 mls/ 868 / 868 hr IV .[id number] [facility] Rx#:[id number] Piperacillin/Tazobactam 3.375 230 / 460 115 / 460 gm In Dextrose 5% 100 ml @ 28. 75 mls/hr IV Q8H [facility] Rx#: [id number] Diagnostic Findings Telemetry reviewed: NSR, no significant pauses or bradycardic episodes over the last 24-48 hours. On 03/10, she had an EKG that demonstrated sinus bradycardia around 46 bpm Repeat EKG demonstrated NSR, no acute changes. echo report reviewed dated 03/10/22: Small underfilled LV chamber size with normal wall thickness Hyperdynamic LV function without wall motion abnormalities. LVEF > 70% grade I diastolic dysfunction Poorly visualized valvular structures, but no significant stenosis or regurg by doppler Medications Administered Current Inpatient Medications Acetaminophen (Acetaminophen 325 Mg Tab) 650 mg PO Q4H PRN PRN Reason: pain/fever Stop: 04/07/22 14:21 Last Admin: 03/09/22 18:05 Dose: 650 mg Al Hydrox/Mg Hydrox/Simethicone (Aluminum/Magnesium/Simeth (Maalox Max) 30 Ml Udc) 15 ml PO Q6H PRN PRN Reason: Indigestion Stop: 04/08/22 09:08 Last Admin: 03/09/22 09:28 Dose: 15 ml Dextrose (Dextrose 50% 50 Ml Syringe) 25 - 50 ml IV UD PRN; Protocol PRN Reason: Hypoglycemia Protocol Stop: 04/07/22 14:21 Donepezil HCl (Donepezil Hcl 10 Mg Tab) 10 mg PO DAILY [facility] Stop: 04/08/22 08:59 Last Admin: 03/10/22 10:59 Dose: Not Given Duloxetine HCl (Duloxetine Hcl 60 Mg Cap) 60 mg PO DAILY [facility] Stop: 04/08/22 08:59 Last Admin: 03/10/22 10:59 Dose: Not Given Ezetimibe (Ezetimibe 10 Mg Tablet) 10 mg PO DAILY [facility] Stop: 04/08/22 08:59 Last Admin: 03/12/22 09:13 Dose: 10 mg Glucagon (Glucagon For Inj 1 Mg Vial) 1 mg SQ UD PRN; Protocol PRN Reason: Hypoglycemia Protocol Stop: 04/07/22 14:21 Glucose (Glucose 40% Gel 15 Gm Tube) 15 - 30 gm PO UD PRN; Protocol PRN Reason: Hypoglycemia Protocol Stop: 04/07/22 14:21 Glucose (Glucose 10 Tab/Tube) 4 - 8 tab PO UD PRN; Protocol PRN Reason: Hypoglycemia Treatment Stop: 04/07/22 14:21 Promethazine HCl 12.5 mg/ (Sodium Chloride) 50.5 mls @ 202 mls/hr IV Q6H PRN PRN Reason: Nausea And Vomiting Stop: 04/08/22 15:00 Last Infusion: 03/09/22 15:51 Dose: Infused Dextrose/Sodium Chloride (D5w And Nss) 1,000 mls @ 80 mls/hr IV .[id number] [facility] Stop: 04/08/22 15:14 Last Admin: 03/12/22 09:11 Dose: Not Given Piperacillin Sod/Tazobactam (Sod 3.375 gm/ Dextrose) 115 mls @ 28.75 mls/hr IV Q8H [facility]; Protocol Stop: 03/20/22 17:59 Last Admin: 03/12/22 11:17 Dose: 28.8 mls/hr Insulin Aspart (Insulin Aspart Per Unit) 0 units SC ACHS [facility] Stop: 04/09/22 16:29 Last Admin: 03/12/22 08:00 Dose: 1 units Lisinopril (Lisinopril 20 Mg Tab) 20 mg PO DAILY [facility] Stop: 04/08/22 08:59 Last Admin: 03/12/22 09:13 Dose: 20 mg Magnesium Oxide (Magnesium Oxide 400 Mg Tab) 400 mg PO QAM [facility] Stop: 04/11/22 10:29 Last Admin: 03/12/22 11:17 Dose: 400 mg Metoprolol Succinate (Metoprolol Succ 25mg Ext Rel Tab) 25 mg PO DAILY [facility] Stop: 04/07/22 13:59 Last Admin: 03/10/22 10:59 Dose: Not Given Miscellaneous (Carbohydrates For Hypoglycemia ) 15 - 30 gm PO UD PRN PRN Reason: Hypoglycemia Protocol Stop: 04/07/22 14:21 Oxybutynin Chloride (Oxybutynin Chloride 5 Mg Tab) 5 mg PO DAILY [facility] Stop: 04/08/22 08:59 Last Admin: 03/12/22 09:13 Dose: 5 mg Pantoprazole Sodium (Pantoprazole 40 Mg Tab) 40 mg PO DAILY [facility] Stop: 04/08/22 08:59 Last Admin: 03/12/22 09:13 Dose: 40 mg Pravastatin Sodium (Pravastatin Sod 10 Mg Tab) 10 mg PO DAILY [facility] Stop: 04/08/22 08:59 Last Admin: 03/12/22 09:13 Dose: 10 mg Trazodone HCl (Trazodone Hcl 50 Mg Tab) 25 mg PO QPM [facility] Stop: 04/07/22 20:59 Last Admin: 03/09/22 21:25 Dose: 25 mg
[2022-03-12] MEDS: MAGNESIUM OXIDE 400 MG TAB PO SCH (11:17)
--- NOTE | 2022-03-12 16:49 | Hospitalist Progress Note ---
Date of Service March 12, 2022 Assessment & Plan (1) Acute diverticulitis: Plan: Per admitting service notes with addendum: (1) Metabolic encephalopathy: (2) Acute UTI (urinary tract infection): (3) History of recent fall: (4) Diverticulitis large intestine: (5) HTN (hypertension): (6) DMII (diabetes mellitus, type 2): (7) CAD (coronary artery disease): (8) Overactive bladder: (9) HLD (hyperlipidemia): Plan Acute encephalopathy 2/2 UTI + Diverticulitis: -CT abd: Findings are compatible with acute diverticulitis without evidence of perforation. Overall the degree of inflammation is somewhat less than on the prior exam. Compliant appearing adjacent fluid foci are seen which are considered less likely to represent abscess. General surgery on board; recommend IV antibiotic and transition to oral antib iotic for [address] abdomen showed stable acute diverticulitis; no perforation. Continue to advance diet. Symptomatic bradycardia occurred morning of 03/10/22 Episode of unresponsiveness associated with sinus bradycardia first-degree AV block, heart rate 46 Resolved with atropine 1 g IV Echocardiogram ordered: EF 70%, Gr 1 Diastolic dysfunction, no significant stenosis or regurgitation TSH normal Troponin negative Cardiology recommendation appreciated; will discontinue beta-poncho. Continue to monitor on telemetry. Discussion was done by previous hospitalist with daughter; CODE STATUS confirmed. No atropine to be given. Recent fall: -CT head: no acute finding -at bedside: pt denied any pain -PT/OT: walks with walker at baseline -Continue PT and OT evaluation HTN & CAD: 03/11 continue lisinopril hold metoprolol given symptomatic bradycardia episode requiring atropine DM II: -hold oral DMII - ISS HLD/Overactive bladder/GERD: -continue home meds Diet: DM II and heart healthy DVT PPx: SCD (due to having recent fall + head trauma) Code Status: DNR/DNI (verified with pt's daughter - Kenyetta) Disposition return to SNF when medically stable Admission and Anticipated Discharge Date Admission Date: March 08, 2022 Subjective Patient seen and examined at bedside. She is sleepy but awakened by voice; not in any distress. Review of Systems Review of Systems: All systems reviewed & are unremarkable except as noted in Subjective Physical Exam Physical Exam: Constitutional: Alert, oriented; not in any distress. Respiratory: normal respiratory effort, lungs clear to auscultation, no wheeze, rales, rhonchi. Normal insp/exp effort, no accessory muscle use Cardiovascular: RRR, no murmur, no edema Vessels: no JVD or carotid bruit Chest: normal inspection of chest Abdomen: normal bowel sounds, soft, nontender, no hepatosplenomegaly Musculoskeletal: no cyanosis or clubbing, extremities motor strength 5/5 Skin: no rashes, warm and dry normal turgor Neurologic: PERRL, EOMI, accommodation nl, no face palsy, no dysarthria CN's II- XI intact bilaterally and moves all extremities Psychiatric: Alert, oriented to self. Lymphatic: no cervical or axillary lymphadenopathy : deferred Results & Data Results & Data ([facility]) Vital Signs (Past 12 Hours) Vital Signs Temp Pulse Pulse Resp BP Pulse Ox O2 Del Method 03/12/22 15:44 36.5 C 99 H 18 134/89 98 Room Air 03/12/22 09:00 Room Air 03/12/22 09:00 60 03/12/22 11:10 36.6 C 100 H 18 117/75 99 Room Air 03/12/22 08:10 58 L 16 170/70 H 94 Room Air 03/12/22 07:15 36.7 C 92 H 18 145/82 H 95 Room Air Laboratory Results Laboratory Results WBC 8.64 K/ul (4.8-10.8) 03/12/22 06:07 RBC 3.01 M/uL (3.93-5.22) L 03/12/22 06:07 Hgb 9.4 g/dl (12.0-16.0) L 03/12/22 06:07 Hct 29.0 % (34.1-44.9) L 03/12/22 06:07 MCV 96.3 fL (80.0-100.0) 03/12/22 06:07 MCH 31.2 pg (25.0-34.0) 03/12/22 06:07 MCHC 32.4 g/dL (32.0-36.0) 03/12/22 06:07 RDW Std Deviation 49.5 fL (36.4-46.3) H 03/12/22 06:07 RDW Coeff of Elina 14.2 % (11.5-14.5) 03/12/22 06:07 Plt Count 215 K/uL (130-400) 03/12/22 06:07 MPV 9.0 fL (9.4-12.3) L 03/12/22 06:07 Immature Gran % (Auto) 0.7 % 03/12/22 06:07 Neut % (Auto) 47.7 % 03/12/22 06:07 Lymph % (Auto) 38.8 % 03/12/22 06:07 Orange % (Auto) 7.3 % 03/12/22 06:07 Eos % (Auto) 4.7 % 03/12/22 06:07 Baso % (Auto) 0.8 % 03/12/22 06:07 Neut # (Auto) 4.12 K/uL (1.4-6.5) 03/12/22 06:07 Lymph # (Auto) 3.35 K/uL (1.2-3.4) 03/12/22 06:07 Orange # (Auto) 0.63 K/uL (0.24-0.82) 03/12/22 06:07 Eos # (Auto) 0.41 K/uL (0-0.50) 03/12/22 06:07 Baso # (Auto) 0.07 K/uL (0-0.2) 03/12/22 06:07 Immature Gran # (Auto) 0.06 K/uL (0.00-0.02) H 03/12/22 06:07 Absolute Nucleated RBC Cancelled 03/10/22 08:08 Nucleated RBC % (auto) Cancelled 03/10/22 08:08 Neutrophils % (Manual) Cancelled 03/10/22 08:08 Band Neutrophils % Cancelled 03/10/22 08:08 Lymphocytes % (Manual) Cancelled 03/10/22 08:08 Prolymphocyte % Cancelled 03/10/22 08:08 Reactive Lymphs % (Man) Cancelled 03/10/22 08:08 Monocytes % (Manual) Cancelled 03/10/22 08:08 Eosinophils % (Manual) Cancelled 03/10/22 08:08 Basophils % (Manual) Cancelled 03/10/22 08:08 Metamyelocytes % (Man) Cancelled 03/10/22 08:08 Myelocytes % (Man) Cancelled 03/10/22 08:08 Promyelocytes % (Man) Cancelled 03/10/22 08:08 Blast Cells % (Manual) Cancelled 03/10/22 08:08 Plasma Cell % (Manual) Cancelled 03/10/22 08:08 Other Cells % Cancelled 03/10/22 08:08 Nucleated RBC % Cancelled 03/10/22 08:08 Neutrophils # (Manual) Cancelled 03/10/22 08:08 Band Neutrophils # Cancelled 03/10/22 08:08 Total Absolute Neuts Cancelled 03/10/22 08:08 Lymphocytes # (Manual) Cancelled 03/10/22 08:08 Prolymphocyte # Cancelled 03/10/22 08:08 Reactive Lymphs # Cancelled 03/10/22 08:08 Total Abs Lymphocytes Cancelled 03/10/22 08:08 Monocytes # (Manual) Cancelled 03/10/22 08:08 Eosinophils # (Manual) Cancelled 03/10/22 08:08 Basophils # (Manual) Cancelled 03/10/22 08:08 Metamyelocytes # (Man) Cancelled 03/10/22 08:08 Myelocytes # (Manual) Cancelled 03/10/22 08:08 Promyelocytes # (Man) Cancelled 03/10/22 08:08 Blast Cells # (Man) Cancelled 03/10/22 08:08 Plasma Cell # (Manual) Cancelled 03/10/22 08:08 Other Cells # Cancelled 03/10/22 08:08 Nucleated RBCs # (Man) Cancelled 03/10/22 08:08 Hypersegmented Neuts Cancelled 03/10/22 08:08 Hyposegmented Neuts Cancelled 03/10/22 08:08 Hypogranular Neuts Cancelled 03/10/22 08:08 Large Granular Lymphs Cancelled 03/10/22 08:08 # Lrg Granular Lymphs Cancelled 03/10/22 08:08 Hairy Cells Cancelled 03/10/22 08:08 Smudge Cells Cancelled 03/10/22 08:08 Toxic Granulation Cancelled 03/10/22 08:08 Toxic Vacuolation Cancelled 03/10/22 08:08 Dohle Bodies Cancelled 03/10/22 08:08 Corrine Rods Cancelled 03/10/22 08:08 Platelet Estimate Cancelled 03/10/22 08:08 Hypogranular Platelets Cancelled 03/10/22 08:08 Clumped Platelets Cancelled 03/10/22 08:08 Giant Platelets Cancelled 03/10/22 08:08 Platelet Satelliting Cancelled 03/10/22 08:08 RBC Morphology Cancelled 03/10/22 08:08 Polychromasia Cancelled 03/10/22 08:08 Hypochromasia Cancelled 03/10/22 08:08 Poikilocytosis Cancelled 03/10/22 08:08 Basophilic Stippling Cancelled 03/10/22 08:08 Anisocytosis Cancelled 03/10/22 08:08 Microcytosis Cancelled 03/10/22 08:08 Macrocytosis Cancelled 03/10/22 08:08 Spherocytes Cancelled 03/10/22 08:08 Pappenheimer Bodies Cancelled 03/10/22 08:08 Sickle Cells Cancelled 03/10/22 08:08 Target Cells Cancelled 03/10/22 08:08 Tear Drop Cells Cancelled 03/10/22 08:08 Ovalocytes Cancelled 03/10/22 08:08 Stomatocytes Cancelled 03/10/22 08:08 Lees-Whatley Bodies Cancelled 03/10/22 08:08 Echinocytes Cancelled 03/10/22 08:08 Acanthocytes (Spur) Cancelled 03/10/22 08:08 Rouleaux Cancelled 03/10/22 08:08 RBC Agglutinates Cancelled 03/10/22 08:08 Schistocytes Cancelled 03/10/22 08:08 Sezary Cell Cancelled 03/10/22 08:08 PT 12.9 Seconds (9.0-12.0) H 03/08/22 10:04 INR 1.2 (0.9-1.1) H 03/08/22 10:04 APTT 24.5 Seconds (21.0-31.0) 03/08/22 10:04 PTT Ratio 0.9 03/08/22 10:04 ABG pH 7.40 (7.35-7.45) 03/10/22 10:28 ABG pCO2 29 mmHg (35-46) L 03/10/22 10:28 ABG pO2 78 mmHg (80-95) L 03/10/22 10:28 ABG HCO3 18 mmol/L (19-24) L 03/10/22 10:28 ABG O2 Saturation 97.9 % (90-95) H 03/10/22 10:28 ABG Base Excess -5.5 mEq/L (-9-1.8) 03/10/22 10:28 Andrea Test Pos (Pos) 03/10/22 10:28 Oxygen Given RA 03/10/22 10:28 Sodium 138 mmol/L (136-145) 03/12/22 06:07 Potassium 3.5 mmol/L (3.5-5.1) 03/12/22 06:07 Chloride 111 mmol/L (98-107) H 03/12/22 06:07 Carbon Dioxide 24 mmol/L (21-32) 03/12/22 06:07 Anion Gap 3 (3-11) 03/12/22 06:07 BUN 12 mg/dl (6-23) 03/12/22 06:07 Creatinine 1.07 mg/dl (0.6-1.2) 03/12/22 06:07 Est Cr Clr Drug Dosing 43.5 ml/min 03/12/22 06:07 Est GFR ( Amer) 58.4 ml/min 03/12/22 06:07 Est GFR (Non-Af Amer) 50.4 ml/min 03/12/22 06:07 BUN/Creatinine Ratio 11.2 (10-20) 03/12/22 06:07 Glucose 184 mg/dl (70-99(Fasting)) H 03/12/22 06:07 POC Glucose 198 mg/dl (70-99) H 03/12/22 11:31 Lactate 0.5 mmol/L (0.4-2.0) 03/10/22 10:30 Calcium 8.3 mg/dl (8.5-10.1) L 03/12/22 06:07 Magnesium 1.4 mg/dl (1.7-2.4) L 03/12/22 06:07 Total Bilirubin 0.6 mg/dl (0.2-1.0) 03/12/22 06:07 AST 10 U/L (13-39) L 03/12/22 06:07 ALT 6 U/L (7-52) L 03/12/22 06:07 Alkaline Phosphatase 42 U/L (34-104) 03/12/22 06:07 Ammonia 27.0 umol/L (18-72) 03/10/22 10:28 Troponin I High Sens 8.9 pg/ml (0-14) 03/10/22 10:30 Total Protein 5.4 gm/dl (6.0-8.3) L 03/12/22 06:07 Albumin 2.9 gm/dl (3.4-5.0) L 03/12/22 06:07 Globulin 2.5 gm/dl (2.5-4.0) 03/12/22 06:07 Albumin/Globulin Ratio 1.2 (0.9-2) 03/12/22 06:07 TSH 2.135 uIu/ml (0.300-4.500) 03/10/22 10:30 Urine Color Yellow 03/08/22 10:30 Urine Appearance Clear (Clear) 03/08/22 10:30 Urine pH 5.5 (4.5-7.5) 03/08/22 10:30 Ur Specific [place] 1.022 (1.000-1.030) 03/08/22 10:30 Urine Protein 2+ (Negative) H 03/08/22 10:30 Urine Glucose (UA) 3+ (Negative) H 03/08/22 10:30 Urine Ketones 1+ (Negative) H 03/08/22 10:30 Urine Blood 1+ (Negative) H 03/08/22 10:30 Urine Nitrite Positive (Negative) A 03/08/22 10:30 Urine Bilirubin Negative (Negative) 03/08/22 10:30 Urine Urobilinogen Negative (Negative) 03/08/22 10:30 Ur Leukocyte Esterase Negative (Negative) 03/08/22 10:30 Urine WBC (Auto) 10-30 /hpf (0-5) H 03/08/22 10:30 Urine RBC (Auto) 0-4 /hpf (0-4) 03/08/22 10:30 U Hyaline Cast (Auto) 1-5 /lpf (0-5) 03/08/22 10:30 U Epithel Cells (Auto) 10-20 /lpf (0-5) H 03/08/22 10:30 Urine Bacteria (Auto) 4+ (Negative) H 03/08/22 10:30 Nasal Screen MRSA (PCR) Negative (Negative) 03/08/22 17:15 Lyme Disease IgG Ab Negative (Negative) 03/10/22 10:30 Lyme Disease IgM Ab Negative (Negative) 03/10/22 10:30 SARS-CoV-2 (PCR) NEGATIVE (Negative) 03/08/22 10:04 Influenza Type A (PCR) Negative (Neg) 03/08/22 10:04 Influenza Type B (PCR) Negative (Neg) 03/08/22 10:04 RSV (RT-PCR) Negative (Neg) 03/08/22 10:04 Blood Parasites ID Cancelled 03/10/22 08:08 Impressions Chest X-Ray 03/08/22 09:54 XR chest 1V portable CLINICAL HISTORY: weakness TECHNIQUE: Single frontal radiograph of the chest was obtained. Comparison: Comparison is made to chest radiograph 12/16/2021 FINDINGS: No lines and tubes are seen. The cardiomediastinal silhouette is normal. The lungs are clear. No evidence of pleural effusion or pneumothorax. Scoliosis is incidentally noted. IMPRESSION: No acute abnormalities and in particular no evidence of pneumonia. ACT 112: Negative or not required by law. Electronically signed by: Marlo Gibbs M.D. 03/08/2022 10:[address] 03/10/22 10:01 CT head/brain wo con CLINICAL HISTORY: 76 years-old Female with drowsiness, altered mental status. Acutely altered mental status TECHNIQUE: Multiple axial CT images of the head were obtained without contrast. A dose lowering technique was utilized adhering to the principles of ALARA. CT DOSE: 2010.97 mGy.cm COMPARISON: Head CT March 08, 2022 FINDINGS: No acute intracranial hemorrhage, midline shift, intracranial mass, hydrocephalus, territorial ischemia or abnormal extra-axial collection. Involutional changes with ex vacuo ventriculomegaly. Advanced chronic microvascular ischemic disease. Cerebral vascular calcifications. 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 1.7 cm chronic infarct of the left frontal lobe leo radiata. The calvarium is intact. Prior bilateral lens repair. The paranasal sinuses, mastoid air cells, and middle ear cavities are clear. IMPRESSION: No acute intracranial abnormality. ACT 112: Negative or not required by law. The above report was generated using voice recognition software. It may contain grammatical, syntax or spelling errors. Electronically signed by: Kody Alaniz M.D. 03/10/2022 11:01 AM Abdomen/Pelvis CT 03/10/22 10:[address] WITH IV CONTRAST HISTORY: Follow up study in a patient with acute diverticulitis of the large bowel. FF UP ACUTE DIVERTICULITIS, R/O ABSCESS TECHNIQUE: Multiaxial CT images of the abdomen and pelvis were performed following the IV administration of 91 cc of Optiray, A dose lowering technique was utilized adhering to the principles of ALARA. COMPARISON STUDY: CT abdomen and pelvis March 08, 2022, 12/16/2021 FINDINGS: Calcified mediastinal and right hilar lymph nodes. Small pleural effusions with mild dependent bibasilar consolidation suggestive of atelectasis. No pneumatosis or pneumoperitoneum. Scattered calcified granulomata of the liver and spleen. Mildly atrophic pancreas. Unremarkable adrenal glands. Cholelithiasis without CT evidence of acute cholecystitis. Subcentimeter cyst of the hepatic dome. Patency of the hepatic and portal veins. Cortical scarring with parenchymal thinning of the left greater than right kidneys. There are least 3 nonobstructing calculi left kidney measuring up to 3 mm. There are at least 2 nonobstructing calculi of the right kidney measuring up to 3 mm. Intermediate density 2.1 cm exophytic lesion of the superior pole right kidney is stable from prior suggestive of a mildly complex cyst. No ureteral calculi or hydronephrosis identified. Unremarkable urinary bladder, uterus and adnexa. Atherosclerosis of the aorta and branch vessels. No lymphadenopathy. Mild nonspecific distal esophageal wall thickening with small hiatal hernia. Findings of acute diverticulitis are redemonstrated with moderate wall thickening throughout the proximal to mid sigmoid colon, similar to prior. There are 2 foci of loculated fluid again noted within the adjacent sigmoid mesocolon measuring up to approximately 1.7 cm. Findings appear similar dating back to 12/16/2021 exam with small fluid-filled tract extending towards the sigmoid. No drainable fluid collection. Moderate colonic fecal retention. Normal appendix. Unremarkable soft tissues. Atrophy of the paraspinal muscular atrophy. Degenerative changes of the spine, pelvis and right hip. Left hip total joint arthroplasty. Sigmoidal thoracolumbar scoliosis. 30% T8 compression deformity appears unchanged IMPRESSION: 1. Stable appearance of the acute sigmoid diverticulitis. No bowel obstruction or pneumoperitoneum. 2. There are two small loculated fluid collections within the adjacent sigmoid mesocolon measuring up to 1.7 cm which appear similar dating back to be 12/16/2021 study and may represent small abscesses with small sinus tracts contiguous with the adjacent colon. No drainable fluid collection identified. 3. Nonobstructing bilateral nephrolithiasis. 4. Cholelithiasis. 5. Small pleural effusions with bibasilar atelectasis. 6. Additional findings as above. ACT 112: Negative or not required by law. The above report was generated using voice recognition software. It may contain grammatical, syntax or spelling errors. Electronically signed by: Kody Alaniz M.D. 03/10/2022 11:29 AM
[2022-03-12] MEDS: MAGNESIUM SULFATE / D5W 1 GM/100 ML BAG IV SCH ×3 (17:01→19:50)
[2022-03-12] MEDS: metroNIDAZOLE 500 MG/100 ML BAG IV SCH (17:38)
[2022-03-12] MEDS ORDERED: cefTRIAXone SODIUM 2,000 MG in DEXTROSE 5% 50 ML IV SCH (18:00)
[2022-03-13] MEDS: metroNIDAZOLE 500 MG/100 ML BAG IV SCH ×3 (02:13→13:55)
[2022-03-13 06:01] LABS: Basophils # (auto) 0.06 K/uL (0-0.2); Basophils % (auto) 0.7 %; Eosinophils # (auto) 0.42 K/uL (0-0.50); Eosinophils % (auto) 4.8 %; Hematocrit (blood only) 29.5 % (34.1-44.9); Hemoglobin 9.8 g/dl (12.0-16.0); Immature Granulocytes # (auto) 0.04 K/uL (0.00-0.02); Immature Granulocytes % (auto) 0.5 %; Lymphocytes # (auto) 3.68 K/uL (1.2-3.4); Lymphocytes % (auto) 41.8 %; Mean Corpuscular Hemoglobin 31.5 pg (25.0-34.0); Mean Corpuscular Hgb Conc 33.2 g/dL (32.0-36.0); Mean Corpuscular Volume 94.9 fL (80.0-100.0); Monocytes # (auto) 0.73 K/uL (0.24-0.82); Monocytes % (auto) 8.3 %; Neutrophils # (auto) 3.87 K/uL (1.4-6.5); Neutrophils % (auto) 43.9 %; Platelet Count 244 K/uL (130-400); RDW Coefficient of Variation 14.2 % (11.5-14.5); RDW Standard Deviation 48.3 fL (36.4-46.3); Red Blood Count 3.11 M/uL (3.93-5.22)
[2022-03-13 06:23] LABS: Bilirubin,Total 0.4 mg/dl (0.2-1.0); Calcium 8.3 mg/dl (8.5-10.1); Potassium 3.9 mmol/L (3.5-5.1)
[2022-03-13 06:29] LABS: Albumin Globulin Ratio 1.3 (0.9-2); BUN Creatinine Ratio 14.9 (10-20); Creatinine Clr Calc Pharmacy 53.5 ml/min; Est GFR (Non-African American) 64.7 ml/min; Globulin 2.4 gm/dl (2.5-4.0); Total Protein 5.4 gm/dl (6.0-8.3)
--- NOTE | 2022-03-13 07:53 | Surgery Progress Note ---
Date of Service March 13, 2022 Assessment & Plan (1) Acute diverticulitis: Plan: Patient tolerating diet Continue IV antibiotics for now and then likely p.o. antibiotics for another 10 days Would repeat CAT scan in 1 to 2 weeks Favor follow-up with primary care doctor and if they need our help they can refer or call us No plan for surgical intervention Admission and Anticipated Discharge Date Admission Date: March 08, 2022 Subjective Patient awake and alert Tolerating diet No complaint of abdominal pain Review of Systems Constitutional: no fever and no chills Respiratory: no cough and no chest congestion Gastrointestinal: no nausea and no vomiting Physical Exam Physical Exam: Abdomen is flat and soft Results & Data ([facility]) Vital Signs (Past 12 Hours) Vital Signs Temp Pulse Pulse Resp BP Pulse Ox O2 Del Method 03/13/22 07:36 36.5 C 83 17 146/84 H 99 Room Air 03/13/22 04:00 36.8 C 95 H 18 149/90 H 98 Room Air 03/12/22 22:05 91 H 03/12/22 21:15 Room Air 03/12/22 22:51 37.2 C 74 18 169/85 H 97 Room Air PG Care Time/CCT Total # of Minutes Spent Total Time Spent with Patient: Total time spent is greater than 50% in coordination of care (as documented) at patient's floor/unit and/or counseling patient: Coding Level of Care Code 46383 SUB INP/OBS CARE 03/19MIN Diagnoses Acute diverticulitis K57.92
[2022-03-13] MEDS ORDERED: MAGNESIUM HYDROXIDE SUSP 30 ML UDC PO ONE (09:00)
[2022-03-13] MEDS: INSULIN ASPART PER UNIT SC SCH ×2 (09:15→12:48)
[2022-03-13] MEDS: lisinopril 20 MG TAB PO SCH (09:17)
[2022-03-13] MEDS: PRAVASTATIN SOD 10 MG TAB PO SCH (09:17)
[2022-03-13] MEDS: MAGNESIUM OXIDE 400 MG TAB PO SCH (09:17)
[2022-03-13] MEDS: OXYBUTYNIN CHLORIDE 5 MG TAB PO SCH (09:17)
[2022-03-13] MEDS: EZETIMIBE 10 MG TABLET PO SCH (09:18)
[2022-03-13] MEDS: PANTOprazole 40 MG TAB PO SCH (09:18)
--- NOTE | 2022-03-13 15:24 | Discharge Summary ---
Date of Service March 13, 2022 Admission HPI Per Admitting Provider Pt is a 76 y/o F with hx of Dementia, DMII, HLD, HTN, CAD (now only on Plavix), overactive bladder, Anxiety, Recurrent UTI (was on macrobid in the past) and multiple hx of Diverticulitis brought in from [facility] for AMS and episode of vomiting. Per [facility] staff pt had a mechanical fall 4 days with possible head trauma. At bedside: Pt denied any CP, SOB, Abd pain, N/V, dizziness or blurry vision. Admission Exam Per Admitting Provider General:.NAD, well developed, well nourished, average body habitus HEENT:.Normocephalic and atraumatic, Normal Conjunctiva, EOMI, Sclera is non- icteric Lungs:.No signs of respiratory distress, CTA, no wheezing or crackles Heart:.Normal S1, S2, no murmur Abdominal:.mild discomfort to palpation diffusely, no rebound or guarding,ND, Soft MSK:.No deformities of UE and LE, No leg edema Psych:. AAOx3 (however did not remember the date), normal affect Principal Diagnosis Acute encephalopathy 2/2 UTI + Diverticulitis: Discharge Exam Constitutional: Alert, oriented; not in any distress. Respiratory: normal respiratory effort, lungs clear to auscultation, no wheeze, rales, rhonchi. Normal insp/exp effort, no accessory muscle use Cardiovascular: RRR, no murmur, no edema Vessels: no JVD or carotid bruit Chest: normal inspection of chest Abdomen: normal bowel sounds, soft, nontender, no hepatosplenomegaly Musculoskeletal: no cyanosis or clubbing, extremities motor strength 5/5 Skin: no rashes, warm and dry normal turgor Neurologic: PERRL, EOMI, accommodation nl, no face palsy, no dysarthria CN's II- XI intact bilaterally and moves all extremities Psychiatric: Alert, oriented to self. Lymphatic: no cervical or axillary lymphadenopathy : deferred Discharge Data Allergies Allergy/AdvReac Type Severity Reaction Status Date / Time tomato Allergy Mild Rash Verified 12/17/21 05:31 latex Allergy Unknown ? Unverified 02/24/21 21:44 haloperidol [From Haldol] AdvReac Severe vfib Verified 12/17/21 05:32 acetaminophen [From Vicodin] AdvReac Intermediate hallucinati Verified 12/17/21 05:31 ons hydrocodone AdvReac Mild HALLUCINATI Verified 02/24/21 21:44 ONS niacin AdvReac Mild Flushing Verified 12/17/21 05:31 Consultations 03/08/22 11:56 ED Decision to Admit Stat 03/09/22 07:50 Consult General Surgery Routine 03/11/22 18:53 Consult Cardiology Routine Ordered Studies 03/08/22 09:54 CT abd pelvis wo con Stat CT head/brain wo con Stat 03/10/22 10:01 CT head/brain wo con Stat 03/10/22 10:26 CT abd pelvis IV con only Stat Hospital Course (1) Acute diverticulitis: (2) Acute UTI: (3) Bradycardia: (4) Encephalopathy: Plan Patient is a 76 y/o F with hx of Dementia, DMII, HLD, HTN, CAD (now only on Plavix), overactive bladder, Anxiety, Recurrent UTI (was on macrobid in the past) and multiple hx of Diverticulitis brought in from [facility] for AMS and episode of vomiting. She was treated for following condition during the hospitalization: Acute encephalopathy 2/2 UTI + Diverticulitis: CT abdomen was done on admission which showed acute diverticulitis without evidence of perforation. She had 2 small loculated fluid collection within the adjacent sigmoid mesocolon measuring 1.7 cm which is similar to her CT scan done in November. Urine culture was positive for E. coli which was pansensitive Patient was treated conservatively; was kept NPO. IV fluids, IV antibiotics Surgery was consulted; recommended to continue IV antibiotic and switch to oral for total of 10 days. Patient's showed improvement during the hospitalization and tolerated normal diet. Her abdominal pain resolved. Repeat CT abdomen did not show any significant changes. Her mentation was back to baseline. Patient was given 6 more days of ciprofloxacin and Flagyl to complete the antibiotic course. She was also instructed to obtain CT abdomen pelvis in 1 to 2 weeks time with her primary care doctor. Symptomatic bradycardia Occurred morning of 03/10/22 Episode of unresponsiveness associated with sinus bradycardia first-degree AV block, heart rate 46 Resolved with atropine 1 g IV Echocardiogram ordered: EF 70%, Gr 1 Diastolic dysfunction, no significant stenosis or regurgitation TSH normal Cardiology was consulted; metoprolol discontinued at discharge CODE STATUS was discussed with daughter; confirmed to be DNR/DNI, no atropine or antiarrhythmic to be given. PT OT evaluation was done; recommended subacute rehab. Discussion was done by case management with Ritu( personal fdc). Patient was accepted back; prescription for outpatient PT OT was provided. Discharge instruction given to her daughter. Total Time Total Time Spent Total Time Spent (In Minutes): 50 Total Time Includes: Examination of the Patient, Discharge Planning, Medication Reconciliation, Communication With Other Providers and Other Discharge Plan Discharge Items Patient Disposition: Personal [facility] Reason For Visit: UTI Discharge Diagnosis: Acute encephalopathy 2/2 UTI + Diverticulitis Symptomatic bradycardia Condition on Discharge: Fair Activity: Resume your previous activity Weightbearing: Full weightbearing Non-emergency contact: Primary Care Provider Call non-emergency contact if: you have any medication questions and your symptoms worsen Follow-up/Referrals: [facility] HERNANDE[facility] [Primary Care Provider] - Diet: Regular Addtl Attending Provider Instructions: You were admitted to the hospital with urinary tract infection and acute diverticulitis. The following medication are prescribed to complete the antibiotic course for acute diverticulitis: 1) Ciprofloxacin 500 mg twice daily for 6 days 2) Metronidazole 500 mg 3 times daily for 6 days General surgery evaluated you during the hospitalization. They recommend to repeat a CAT scan of the abdomen in 1 to 2 weeks. Please follow-up with your primary care doctor in 1 week. The name of the surgeon who saw you in the hospital is Dr. Dillon Reyna. Your heart rate was found to be on the lower side during the hospitalization. Cardiology was consulted; they recommended that the metoprolol to be stopped. Pending Studies at Discharge: No Stand-Alone Forms: My [employer], Smoking Cessation Skilled Items Patient informed of condition?: No DNR: Yes Discharge Level of Care: Other Communicable Disease: No Discharge Prognosis: Stable Lines: None Urinary Catheter: Yes Medications and DC Order Prescriptions: New ciprofloxacin HCl [Cipro] 500 mg tablet 500 mg PO BID 6 Days Qty: 12 0RF metronidazole 500 mg tablet 500 mg PO Q8H 7 Days Qty: 21 0RF Continued donepezil 10 mg Tablet 10 mg PO DAILY clopidogrel 75 mg Tablet 75 mg PO DAILY glimepiride 1 mg Tablet 1 mg PO DAILY ezetimibe 10 mg Tablet 10 mg PO DAILY duloxetine 60 mg Capsule,Delayed Release(Dr/Ec) 60 mg PO DAILY pantoprazole 40 mg Tablet,Delayed Release (Dr/Ec) 40 mg PO DAILY oxybutynin chloride 5 mg Tablet 5 mg PO DAILY pioglitazone 45 mg Tablet 45 mg PO DAILY acetaminophen [Arthritis Pain Relief (acetam)] 650 mg Tablet Extended Release 1,300 mg PO Q8H MDD 3 gm APAP PRN (Reason: Pain) pravastatin 10 mg Tablet 10 mg PO DAILY lisinopril 20 mg Tablet 20 mg PO DAILY Qty: 30 0RF trazodone 50 mg tablet 25 mg PO QPM Discontinued metoprolol succinate 25 mg Tablet Extended Release 24 Hr 25 mg PO DAILY Discharge Orders: Discharge Order (Routine); Ordered 03/13/22 Ordered By: Jeffrey Davis Admission Data Admit Date/Time: 03/08/22 12:24 Attending Provider: Jeffrey Davis Admit Provider: Elyse Roland [facility] Other Providers: Elyse Roland ; Dillon Reyna ; Tremaine Daugherty Other Interventions: Discharge Summary Assessment (RN) Last Done: 03/13/22 14:15
== END 2022-03-13 15:30 | disposition home or self-care (01) | DRG 391 ==
LOC: ED 09:39 → SUATTDRO 12:24 → EDINP 12:24 → 3N 14:23 → 4W 03-10 11:10

== ENCOUNTER 2022-04-18 13:32 | Inpatient (IN) ==
[2022-04-18] MEDS ORDERED: FAMOTIDINE 20MG IV PUSH 20 MG/5 ML SYR IV STA (14:09)
[2022-04-18] MEDS ORDERED: ONDANSETRON INJ 2 MG/ML 2 ML VIAL IV STA (14:09)
[2022-04-18] MEDS ORDERED: SODIUM CHLORIDE 0.9% 1000ML 1,000 ML IV SCH ×3 (14:15→19:35)
--- NOTE | 2022-04-18 14:41 | XRay Report ---
SINGLE VIEW CHEST CLINICAL HISTORY: Syncope FINDINGS: An AP, portable, upright chest radiograph is compared to study dated 03/08/2022. The cardiom ediastinal silhouette is unremarkable. Chronic interstitial thickening is similar to previous. There is mild bibasilar scarring/atelectasis. No airspace consolidation or large pleural effusion is identi fied. No pneumothorax is seen. The skeletal structures are osteopenic. The bony thorax is grossly int act. Degenerative change and scoliosis is noted in the spine. IMPRESSION: No active disease in the chest. ACT 112: Negative or not required by law. Electronically signed by: Benjy Leger M.D. 04/18/2022 2:40 PM
[2022-04-18 14:49] LABS: Basophils # (auto) 0.04 K/uL (0-0.2); Basophils % (auto) 0.2 %; Hematocrit (blood only) 34.4 % (37.0-47.0); Hemoglobin 11.1 g/dl (12.0-16.0); Immature Granulocytes # (auto) 0.14 K/uL (0.01-0.20); Immature Granulocytes % (auto) 0.8 %; Mean Corpuscular Hemoglobin 29.3 pg (25.0-34.0); Mean Corpuscular Hgb Conc 32.3 g/dL (32.0-36.0); Mean Corpuscular Volume 90.8 fL (80.0-100.0); Mean Platelet Volume 9.8 fL (9.4-12.4); Monocytes # (auto) 0.76 K/uL (0.11-0.59); Monocytes % (auto) 4.5 %; Neutrophils # (auto) 14.41 K/uL (1.40-6.50); Neutrophils % (auto) 84.5 %; Nucleated RBC # (auto) 0.03 K/uL (0-0.12); Nucleated RBC % (auto) 0.2 %; Platelet Count 453 K/uL (130-400); RDW Coefficient of Variation 14.2 % (11.5-14.5); RDW Standard Deviation 47.7 fL (36.4-46.3); Red Blood Count 3.79 M/uL (4.20-5.40); White Blood Count 17.05 K/ul (4.8-10.8)
[2022-04-18 14:59] LABS: Albumin Globulin Ratio 1.2 (0.9-2); Albumin Level 3.8 gm/dl (3.4-5.0); BUN Creatinine Ratio 18.6 (10-20); Bilirubin,Total 1.2 mg/dl (0.2-1.0); Calcium 9.2 mg/dl (8.5-10.1); Creatinine Clr Calc Pharmacy 26.6 ml/min; Est GFR (African American) 46.6 ml/min; Est GFR (Non-African American) 40.2 ml/min; Globulin 3.3 gm/dl (2.5-4.0); Magnesium 1.4 mg/dl (1.7-2.4); Phosphorus 3.2 mg/dl (2.5-4.9); Potassium 3.5 mmol/L (3.5-5.1); Total Protein 7.1 gm/dl (6.0-8.3)
[2022-04-18 15:04] LABS: Troponin I High Sensitivity 42.2 pg/ml (0-14)
[2022-04-18 15:14] LABS: INR 1.3 (0.9-1.1); Prothrombin Time 13.9 Seconds (9.0-12.0)
[2022-04-18 15:32] LABS: Influenza A virus by PCR Negative (Neg); Influenza B virus by PCR Negative (Neg); RSV by PCR Negative (Neg); SARS CoV2 RNA(COVID-19) Ceph NEGATIVE (Negative)
[2022-04-18] MEDS: MAGNESIUM SULFATE / D5W 1 GM/100 ML BAG IV SCH ×2 (16:07→21:04)
[2022-04-18] MEDS ORDERED: OPTIRAY 350 100ml IV ONE (16:23)
--- NOTE | 2022-04-18 16:26 | Electrocardiogram Report ---
Test Reason : Blood Pressure : / mmHG Vent. Rate : 117 BPM Atrial Rate : 120 BPM P-R Int : 000 ms QRS Dur : 074 ms QT Int : 422 ms P-R-T Axes : 000 -23 063 degrees QTc Int : 588 ms Sinus tachycardia with 1st degree AV block transitioning to normal sinus rhythm T wave changes concerning for ischemia Prolonged QT Abnormal ECG Confirmed by Simon Law ([id number]) on 04/18/2022 4:25:43 PM Referred By: REFERRED SELF Confirmed By:Michael Law
--- NOTE | 2022-04-18 16:37 | CT Scan Report ---
HEAD CT NONCONTRAST CT DOSE: 537.48 mGy.cm HISTORY: syncope TECHNIQUE: Multiaxial CT images of the head were performed without the use of intravenous contrast. A utomated exposure control was utilized for this study. A dose lowering technique was utilized adheri ng to the principles of ALARA. Comparison: Head CT 03/10/2022. Findings: Mild mucosal thickening within the left sphenoid sinus. The mastoid air cells are clear. Th e calvarium and skull base are intact. There is no mass, hematoma, midline shift, acute infarct. Whit e matter hypodensity is nonspecific but suggestive of microvascular ischemic change. The ventricles a nd sulci demonstrate mild age-related involutional changes. 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 Impression: No significant change compared to the prior study. No acute intracranial abnormality. ACT 112: Negative or not required by law. Electronically signed by: Jose Schneider M.D. 04/18/2022 4:36 PM
--- NOTE | 2022-04-18 16:43 | Emergency Department Note ---
Impression & Plan Syncope, Hypomagnesemia, Elevated troponin, Abnormal EKG ED Provider Note NAME: ITALO DOWLING AGE: 76 SEX: F ARRIVES VIA: Ambulance INFORMANT: Patient ED PROVIDER(S): Scott Bender MD CHIEF COMPLAINT: Fall, syncope. PLAN: Disposition: Admit MEDICAL DECISION MAKING: The patient is a pleasant 76-year-old woman with a past medical history dementia, type 2 diabetes, hyperlipidemia, hypertension, CAD, overactive bladder, recurrent UTIs, anxiety, who presents emergency department from her [facility] for evaluation of fall/syncope that occurred prior to arrival. The patient is a poor historian and reports she "does not know what happened" but did feel lightheaded. She reports having nausea, vomiting and diarrhea for the past week. She reports some mild cough and congestion. She denies chest pain or shortness of breath. On arrival the patient is fatigued appearing but no acute distress, afebrile with heart in the 100s and vital signs otherwise stable. She appears clinically dry. Abdomen is benign EKG with new anterior T wave inversions compared to February of this year. No overt ST elevation or depression. Chest x-ray negative for acute cardiopulmonary process. WBC 17K with neutrophil predominance with no significant left shift. H/H 11.1/34.4 increased from recent with platelets of 453 and so it may reflect a component of hemoconcentration. Creatinine 1.29 slightly increased from prior. Consistent with her clinically dry appearance. Bicarbonate 25, within normal limits. Magnesium is 1.4 and the patient was initiated. LFTs unremarkable. High-sensitivity troponin 42.2, nonspecific. Lipase not elevated. Procalci tonin is not elevated. TSH within normal limits. COVID-19, influenza RSV PCR's were negative. CT of the head was performed and was negative for acute abnormality. CT abdomen pelvis was also performed with read pending. Given the patient's fall with questionable syncope in the setting of EKG changes which may be related to her low magnesium patient was referred for admission. IV magnesium, IV fluid hydration with normal saline and Pepcid provided. UA pending. Case was discussed with Dionne Whitley PAC with Dr. Greene, [facility] hospitalist, who will evaluate the patient for admission. CT abd/pelvis with most likely esophagitis and stable pericolonic fluid collection seen. Further management per admitting team. Triage Nursing notes reviewed and agree them. Prior/outside medical records reviewed Vital Signs: reviewed Differential diagnosis: Vasovagal event, dehydration, infection, hypoglycemia, electrolyte abnormalities, cardiac sources, intracerebral event, pulmonary embolism, seizure, toxicologic, neurologic, as well as other pathologies. ER treatment provided: See below. Diagnostics interpreted by me: ECG: Sinus tachycardia with first-degree AV block, transitioning to normal sinus rhythm, no ectopy, new anterior T wave inversions in V1-V3, no overt ST elevation or depression, QTc 588, QRS 74. Cardiac Monitoring: An order for continuous cardiac monitoring was placed and demonstrated Sinus tachycardia with first-degree AV block, transitioning to normal sinus rhythm, no ectopy. Laboratory studies: See below Imaging studies: See below Consultation(s): Dionne Mcmullen [facility] PAC with Dr. Greene, [facility] hospitalist HPI: The patient is a pleasant 76-year-old woman with a past medical history dementia, type 2 diabetes, hyperlipidemia, hypertension, CAD, overactive bl adder, recurrent UTIs, anxiety, who presents emergency department from her [facility] at [facility] for evaluation of fall/syncope that occurred prior to arrival. The patient is a poor historian and reports she "does not know what happened" but did feel lightheaded. She reports having nausea, vomiting and diarrhea for the past week. She reports some mild cough and congestion. She denies chest pain or shortness of breath. ROS: See above HPI for pertinent positives & negatives. A total of 10 systems reviewed and were otherwise negative. VITALS:See Below PHYSICAL EXAMINATION: GENERAL: Awake, alert, fatigued-appearing, in no distress HENT: Normocephalic, atraumatic. Oropharynx with dry mucous membranes and otherw ise unremarkable. EYES: Normal conjunctiva. Sclera non-icteric. NECK: Supple. No nuchal rigidity. FROM. No JVD. RESPIRATORY: Clear to auscultation. CARDIAC: Tachycardic rate, normal rhythm. Extremities warm and well perfused. Pulses equal. ABDOMEN: Soft, non-distended. No tenderness to palpation. No rebound or guarding. No masses. RECTAL: Deferred. MUSCULOSKELETAL: Chest examination reveals no tenderness. The back is symmetrical on inspection without obvious abnormality. There is no CVA tendern ess to palpation. No joint edema. LOWER EXTREMITIES: Calves are equal size bilaterally and non-tender. No edema. No discoloration. NEURO: Normal sensorium. No sensory or motor deficits noted. SKIN: No rash or jaundice noted. Scott Bender MD Past Med/Surg History Medical History (Updated 04/19/22 @ 02:23 by Scott Bender MD) Bradycardia CAD (coronary artery disease) DMII (diabetes mellitus, type 2) HLD (hyperlipidemia) HTN (hypertension) Overactive bladder Surgical History (Updated 04/18/22 @ 17:52 by Dionne Mcmullen PA-C) History of hip replacement Family History (Updated 04/18/22 @ 17:25 by Dionne Mcmullen PA-C) Other Family history unobtainable due to patient's condition Social History Smoking Status: Never smoker Second Hand Exposure: No; Do You Dip or Chew Tobacco: No; Tobacco Cessation Education Requested by Patient: No Hx Alcohol Use: Yes Alcohol type: hard liquor Hx Substance Use: No Preferred Language: Kiswahili Communication Ability: Effective Communication Ability Comment: Confused Video And Sound Recorder Required: No Beliefs That Will Affect Care: None and Spiritual Spiritual Healthcare Practices: Baptism marital status: / Current Living Situation: Other Current Living Situation Comment: patient thinks she lives in [place] Other Information That Helps Us Care for You: No Feels Safe at Home: Yes Safety Concerns: Feels Safe At This Time Assistive Devices: Walker Allergies Allergies Allergy/AdvReac Type Severity Reaction Status Date / Time tomato Allergy Mild Rash Verified 04/18/22 15:17 haloperidol [From Haldol] AdvReac Severe vfib Verified 04/18/22 15:17 acetaminophen [From Vicodin] AdvReac Intermediate hallucinati Verified 04/18/22 15:17 ons hydrocodone AdvReac Mild HALLUCINATI Verified 04/18/22 15:17 ONS niacin AdvReac Mild Flushing Verified 04/18/22 15:17 Home Meds Home Medications Medication Instructions Recorded Confirmed acetaminophen 650 mg 1,300 mg PO Q8H PRN Pain 12/16/21 04/18/22 tablet,extended release (Arthritis Pain Relief (acetaminophen) ER) clopidogrel 75 mg tablet 75 mg PO DAILY 12/16/21 04/18/22 donepezil 10 mg tablet 10 mg PO DAILY 12/16/21 04/18/22 duloxetine 60 mg capsule,delayed 60 mg PO DAILY 12/16/21 04/18/22 release ezetimibe 10 mg tablet 10 mg PO DAILY 12/16/21 04/18/22 glimepiride 1 mg tablet 1 mg PO DAILY 12/16/21 04/18/22 oxybutynin chloride 5 mg tablet 5 mg PO DAILY 12/16/21 04/18/22 pantoprazole 40 mg tablet,delayed 40 mg PO DAILY 12/16/21 04/18/22 release pioglitazone 45 mg tablet 45 mg PO DAILY 12/16/21 04/18/22 pravastatin 10 mg tablet 10 mg PO DAILY 12/16/21 04/18/22 trazodone 50 mg tablet 25 mg PO QPM 03/08/22 04/18/22 potassium chloride 10 mEq 10 meq PO BID 04/18/22 04/18/22 tablet,extended release(part/cryst) Previous Rx's Medication Instructions Recorded lisinopril 20 mg tablet 20 mg PO DAILY #30 tabs 12/20/21 Results & Data (ED) Vital Signs Vital Signs - 24 hr 04/18/22 13:41 04/18/22 14:25 04/18/22 14:29 Temperature 36.6 C Temperature Source Oral Pulse Rate 97 H 108 H Pulse Rate from SpO2 Sensor Respiratory Rate 20 Respiratory Effort / Characteristics Non-Labored Spontaneous Respiratory Depth Normal Blood Pressure 106/71 Blood Pressure Mean 82 Pulse Oximetry 96 93 Oxygen Delivery Method Room Air Room Air Sepsis Recent Fever Within 48 Hours No Sepsis New/Unexplained Change in Mental Status No Sepsis Action Taken by Nursing No Action Required 04/18/22 14:15 04/18/22 14:45 04/18/22 15:00 Temperature Temperature Source Pulse Rate 108 H 114 H 93 H Pulse Rate from SpO2 Sensor 110 H 100 H Respiratory Rate 23 17 26 H Respiratory Effort / Characteristics Respiratory Depth Blood Pressure 102/77 139/88 143/96 H Blood Pressure Mean 85 105 111 Pulse Oximetry 96 92 93 Oxygen Delivery Method Room Air Room Air Room Air Sepsis Recent Fever Within 48 Hours Sepsis New/Unexplained Change in Mental Status Sepsis Action Taken by Nursing 04/18/22 15:15 04/18/22 15:30 04/18/22 15:45 Temperature Temperature Source Pulse Rate 105 H 104 H 104 H Pulse Rate from SpO2 Sensor 111 H 110 H Respiratory Rate 22 23 24 Respiratory Effort / Characteristics Respiratory Depth Blood Pressure 147/96 H 144/99 H 151/106 H Blood Pressure Mean 113 114 121 Pulse Oximetry 92 94 98 Oxygen Delivery Method Room Air Room Air Room Air Sepsis Recent Fever Within 48 Hours Sepsis New/Unexplained Change in Mental Status Sepsis Action Taken by Nursing 04/18/22 16:00 04/18/22 16:50 04/18/22 17:00 Temperature Temperature Source Pulse Rate 117 H 108 H 105 H Pulse Rate from SpO2 Sensor 108 H 103 H Respiratory Rate 20 17 25 H Respiratory Effort / Characteristics Respiratory Depth Blood Pressure 149/94 H 151/97 H 135/100 Blood Pressure Mean 112 115 111 Pulse Oximetry 98 96 93 Oxygen Delivery Method Room Air Room Air Room Air Sepsis Recent Fever Within 48 Hours Sepsis New/Unexplained Change in Mental Status Sepsis Action Taken by Nursing Laboratory Data 04/18/22 14:25 04/18/22 14:25 Lab Results 04/18/22 04/18/22 04/18/22 Range/Units 14:25 14:25 14:25 WBC 17.05 H (4.8-10.8) K/ul RBC 3.79 L (4.20-5.40) M/uL Hgb 11.1 L (12.0-16.0) g/dl Hct 34.4 L (37.0-47.0) % MCV 90.8 (80.0-100.0) fL MCH 29.3 (25.0-34.0) pg MCHC 32.3 (32.0-36.0) g/dL RDW Std Deviation 47.7 H (36.4-46.3) fL RDW Coeff of Elina 14.2 (11.5-14.5) % Plt Count 453 H (130-400) K/uL MPV 9.8 (9.4-12.4) fL Immature Gran % (Auto) 0.8 % Neut % (Auto) 84.5 % Lymph % (Auto) 10.0 % [place] % (Auto) 4.5 % Eos % (Auto) 0.0 % Baso % (Auto) 0.2 % Neut # (Auto) 14.41 H (1.40-6.50) K/uL Lymph # (Auto) 1.70 (1.2-3.4) K/uL [place] # (Auto) 0.76 H (0.11-0.59) K/uL Eos # (Auto) 0.00 (0-0.50) K/uL Baso # (Auto) 0.04 (0-0.2) K/uL Immature Gran # (Auto) 0.14 (0.01-0.20) K/uL Absolute Nucleated RBC 0.03 (0-0.12) K/uL Nucleated RBC % (auto) 0.2 % PT 13.9 H (9.0-12.0) Seconds INR 1.3 H (0.9-1.1) Sodium 135 L (136-145) mmol/L Potassium 3.5 (3.5-5.1) mmol/L Chloride 94 L (98-107) mmol/L Carbon Dioxide 25 (21-32) mmol/L Anion Gap 16 H (3-11) BUN 24 H (6-23) mg/dl Creatinine 1.29 H D (0.6-1.2) mg/dl Est Cr Clr Drug Dosing 26.6 ml/min Est GFR ( Amer) 46.6 ml/min Est GFR (Non-Af Amer) 40.2 ml/min BUN/Creatinine Ratio 18.6 (10-20) Glucose 289 H (70-99(Fasting)) mg/dl Osmolality (280-300) mOsm/kg Calcium 9.2 (8.5-10.1) mg/dl Phosphorus 3.2 (2.5-4.9) mg/dl Magnesium 1.4 L (1.7-2.4) mg/dl Total Bilirubin 1.2 H (0.2-1.0) mg/dl AST 15 (13-39) U/L ALT 8 (7-52) U/L Alkaline Phosphatase 62 (34-104) U/L Troponin I High Sens 42.2 H (0-14) pg/ml Total Protein 7.1 (6.0-8.3) gm/dl Albumin 3.8 (3.4-5.0) gm/dl Globulin 3.3 (2.5-4.0) gm/dl Albumin/Globulin Ratio 1.2 (0.9-2) Lipase 5 L (11-82) U/L Procalcitonin (0-0.5) ng/ml TSH (0.300-4.500) uIu/ml SARS-CoV-2 (PCR) (Negative) Influenza Type A (PCR) (Neg) Influenza Type B (PCR) (Neg) RSV (RT-PCR) (Neg) 04/18/22 04/18/22 04/18/22 Range/Units 14:25 14:25 14:25 WBC (4.8-10.8) K/ul RBC (4.20-5.40) M/uL Hgb (12.0-16.0) g/dl Hct (37.0-47.0) % MCV (80.0-100.0) fL MCH (25.0-34.0) pg MCHC (32.0-36.0) g/dL RDW Std Deviation (36.4-46.3) fL RDW Coeff of Elina (11.5-14.5) % Plt Count (130-400) K/uL MPV (9.4-12.4) fL Immature Gran % (Auto) % Neut % (Auto) % Lymph % (Auto) % [place] % (Auto) % Eos % (Auto) % Baso % (Auto) % Neut # (Auto) (1.40-6.50) K/uL Lymph # (Auto) (1.2-3.4) K/uL [place] # (Auto) (0.11-0.59) K/uL Eos # (Auto) (0-0.50) K/uL Baso # (Auto) (0-0.2) K/uL Immature Gran # (Auto) (0.01-0.20) K/uL Absolute Nucleated RBC (0-0.12) K/uL Nucleated RBC % (auto) % PT (9.0-12.0) Seconds INR (0.9-1.1) Sodium (136-145) mmol/L Potassium (3.5-5.1) mmol/L Chloride (98-107) mmol/L Carbon Dioxide (21-32) mmol/L Anion Gap (3-11) BUN (6-23) mg/dl Creatinine (0.6-1.2) mg/dl Est Cr Clr Drug Dosing ml/min Est GFR ( Amer) ml/min Est GFR (Non-Af Amer) ml/min BUN/Creatinine Ratio (10-20) Glucose (70-99(Fasting)) mg/dl Osmolality 301 H (280-300) mOsm/kg Calcium (8.5-10.1) mg/dl Phosphorus (2.5-4.9) mg/dl Magnesium (1.7-2.4) mg/dl Total Bilirubin (0.2-1.0) mg/dl AST (13-39) U/L ALT (7-52) U/L Alkaline Phosphatase (34-104) U/L Troponin I High Sens (0-14) pg/ml Total Protein (6.0-8.3) gm/dl Albumin (3.4-5.0) gm/dl Globulin (2.5-4.0) gm/dl Albumin/Globulin Ratio (0.9-2) Lipase (11-82) U/L Procalcitonin 0.12 (0-0.5) ng/ml TSH 3.416 (0.300-4.500) uIu/ml SARS-CoV-2 (PCR) (Negative) Influenza Type A (PCR) (Neg) Influenza Type B (PCR) (Neg) RSV (RT-PCR) (Neg) 04/18/22 Range/Units 14:33 WBC (4.8-10.8) K/ul RBC (4.20-5.40) M/uL Hgb (12.0-16.0) g/dl Hct (37.0-47.0) % MCV (80.0-100.0) fL MCH (25.0-34.0) pg MCHC (32.0-36.0) g/dL RDW Std Deviation (36.4-46.3) fL RDW Coeff of Elina (11.5-14.5) % Plt Count (130-400) K/uL MPV (9.4-12.4) fL Immature Gran % (Auto) % Neut % (Auto) % Lymph % (Auto) % [place] % (Auto) % Eos % (Auto) % Baso % (Auto) % Neut # (Auto) (1.40-6.50) K/uL Lymph # (Auto) (1.2-3.4) K/uL [place] # (Auto) (0.11-0.59) K/uL Eos # (Auto) (0-0.50) K/uL Baso # (Auto) (0-0.2) K/uL Immature Gran # (Auto) (0.01-0.20) K/uL Absolute Nucleated RBC (0-0.12) K/uL Nucleated RBC % (auto) % PT (9.0-12.0) Seconds INR (0.9-1.1) Sodium (136-145) mmol/L Potassium (3.5-5.1) mmol/L Chloride (98-107) mmol/L Carbon Dioxide (21-32) mmol/L Anion Gap (3-11) BUN (6-23) mg/dl Creatinine (0.6-1.2) mg/dl Est Cr Clr Drug Dosing ml/min Est GFR ( Amer) ml/min Est GFR (Non-Af Amer) ml/min BUN/Creatinine Ratio (10-20) Glucose (70-99(Fasting)) mg/dl Osmolality (280-300) mOsm/kg Calcium (8.5-10.1) mg/dl Phosphorus (2.5-4.9) mg/dl Magnesium (1.7-2.4) mg/dl Total Bilirubin (0.2-1.0) mg/dl AST (13-39) U/L ALT (7-52) U/L Alkaline Phosphatase (34-104) U/L Troponin I High Sens (0-14) pg/ml Total Protein (6.0-8.3) gm/dl Albumin (3.4-5.0) gm/dl Globulin (2.5-4.0) gm/dl Albumin/Globulin Ratio (0.9-2) Lipase (11-82) U/L Procalcitonin (0-0.5) ng/ml TSH (0.300-4.500) uIu/ml SARS-CoV-2 (PCR) NEGATIVE (Negative) Influenza Type A (PCR) Negative (Neg) Influenza Type B (PCR) Negative (Neg) RSV (RT-PCR) Negative (Neg) Administered Medications Heparin Sodium (Porcine) (Heparin Sod 5,000 Unit/0.5 Ml Vial) 5,000 units SQ Q12 JOLENE Stop: 05/18/22 20:59 Last Admin: 04/18/22 22:09 Dose: Not Given Documented By: P Ceftriaxone Sodium 1,000 mg/ (Dextrose) 50 mls @ 100 mls/hr IV Q24H [facility]; Protocol Stop: 04/28/22 18:29 Last Infusion: 04/19/22 01:06 Dose: 0 mls/hr Documented By: Admin: 04/19/22 00:11 Dose: 100 mls/hr Documented By: SMP Sodium Chloride (Nss 1000ml) 1,000 mls @ 80 mls/hr IV .[id number] JOLENE Stop: 04/19/22 08:04 Last Admin: 04/18/22 20:49 Dose: 80 mls/hr Documented By: P Pantoprazole Sodium 40 mg/ (Dextrose) 100 mls @ 20 mls/hr IV Q5H [facility] Stop: 05/18/22 23:29 Last Admin: 04/19/22 00:06 Dose: 8 mg/hr, 20 mls/hr Documented By: P Insulin Glargine (Lantus Per Unit Charge) 0 - 5 units SQ BID [facility] Stop: 05/18/22 20:59 Last Admin: 04/18/22 22:29 Dose: 5 units Documented By: [facility] Co-signed By: SG Potassium Chloride (Potassium Chloride 10 Meq Tabcr) 10 meq PO BID JOLENE Stop: 05/18/22 20:59 Last Admin: 04/18/22 22:11 Dose: Not Given Documented By: P Trazodone HCl (Trazodone Hcl 50 Mg Tab) 25 mg PO QPM [facility] Stop: 05/18/22 20:59 Last Admin: 04/18/22 22:10 Dose: Not Given Documented By: SMP Discontinued Medications Sodium Chloride (Nss 1000ml) 1,000 mls @ 999 mls/hr IV .Q1H1M JOLENE Stop: 04/18/22 15:15 Last Infusion: 04/18/22 16:01 Dose: 0 mls/hr Documented By: Admin: 04/18/22 14:31 Dose: 999 mls/hr Documented By: NMS Famotidine (Pepcid 20mg Iv Push) 20 mg in 5 mls @ 2.5 mls/min IV NOW STA Stop: 04/18/22 14:10 Last Admin: 04/18/22 14:31 Dose: 2.5 mls/min Documented By: JOS Magnesium Sulfate/Dextrose (Magnesium Sulfate / D5w) 1 gm in 100 mls @ 100 mls/hr IV Q1H JOLENE Stop: 04/18/22 17:45 Last Infusion: 04/18/22 22:54 Dose: 0 mls/hr Documented By: Admin: 04/18/22 21:04 Dose: 100 mls/hr Documented By: Infusion: 04/18/22 20:23 Dose: 0 mls/hr Documented By: Admin: 04/18/22 16:07 Dose: 100 mls/hr Documented By: ROSSY Sodium Chloride (Nss 1000ml) 1,000 mls @ 125 mls/hr IV .Q8H JOLENE Stop: 05/18/22 16:59 Last Admin: 04/18/22 20:27 Dose: Not Given Documented By: TRESSA Magnesium Sulfate/Dextrose (Magnesium Sulfate / D5w) 1 gm in 100 mls @ 50 mls/hr IV ONE ONE Stop: 04/18/22 19:59 Last Admin: 04/19/22 00:14 Dose: 50 mls/hr Documented By: TRESSA Pantoprazole Sodium 80 mg/ (Dextrose) 120 mls @ 400 mls/hr IV NOW ONE Stop: 04/18/22 23:04 Last Infusion: 04/18/22 23:47 Dose: 0 mls/hr Documented By: Geeta Admin: 04/18/22 23:15 Dose: 400 mls/hr Documented By: TRESSA Promethazine HCl 6.25 mg/ (Sodium Chloride) 50.25 mls @ 201 mls/hr IV NOW STA Stop: 04/18/22 23:02 Last Infusion: 04/18/22 23:24 Dose: 0 mls/hr Documented By: P Admin: 04/18/22 23:05 Dose: 201 mls/hr Documented By: TRESSA Insulin Aspart (Insulin Aspart Per Unit) 0 units SC ACHS JOLENE Stop: 05/18/22 20:59 Last Admin: 04/18/22 22:29 Dose: 1 units Documented By: TRESSA Co-signed By: DIAMOND Ioversol (Optiray 350 100ml) 82 ml IV ONCE ONE Stop: 04/18/22 16:24 Last Admin: 04/18/22 16:24 Dose: 82 ml Documented By: MIREILLE Ondansetron HCl (Ondansetron Inj 2 Mg/Ml 2 Ml Vial) 4 mg IV NOW STA Stop: 04/18/22 14:10 Last Admin: 04/18/22 14:30 Dose: 4 mg Documented By: [facility] Imaging Data Radiologist's Impression: Chest X-Ray 04/18/22 14:09 SINGLE VIEW CHEST CLINICAL HISTORY: Syncope FINDINGS: An AP, portable, upright chest radiograph is compared to study dated 03/08/2022. The cardiomediastinal silhouette is unremarkable. Chronic interstitial thickening is similar to previous. There is mild bibasilar scarring/atelectasis. No airspace consolidation or large pleural effusion is identified. No pneumothorax is seen. The skeletal structures are osteopenic. The bony thorax is grossly intact. Degenerative change and scoliosis is noted in the spine. IMPRESSION: No active disease in the chest. ACT 112: Negative or not required by law. Electronically signed by: Benjy Leger M.D. 04/18/2022 2:40 PM Abdomen/Pelvis CT 04/18/22 15:44 CT OF THE ABDOMEN AND PELVIS WITH CONTRAST CLINICAL HISTORY: Nausea, vomiting and diarrhea. COMPARISON STUDY: CT of the abdomen and pelvis March 10, 2022. TECHNIQUE: Following IV administration of 82 mL of Optiray, axial images of the abdomen and pelvis were obtained from the lung bases to the proximal femurs. Images were reviewed in the axial, sagittal, and coronal planes. IV contrast was administered without complication. Automated exposure control was utilized for the study. A dose lowering technique was utilized adhering to the principles of ALARA. CT DOSE: 484.01 mGy.cm FINDINGS: Calcified granulomas within the liver and spleen are noted. There is hepatic steatosis. No biliary or pancreatic ductal dilatation is present. There is no pneumatosis, free air or portal venous gas. There are gallstones within the gallbladder. No evidence for acute cholecystitis. Pancreatic glandular atrophy is noted. Bilateral renal atrophy. There is a right renal cyst. A few subcentimeter renal lesions are too small to characterize. There is no hydroneph rosis. The stomach is moderately distended and fluid-filled. The distal esophagus is also fluid-filled. Distal esophageal wall thickening is noted. There is apparent wall thickening at the level of the pylorus. There is no evidence for a bowel obstruction. Colonic diverticulosis is again noted with persistent wall thickening of the descending colon with mild adjacent stranding. This is similar to prior CT. Small pericolonic fluid collections measuring up to 2.7 x 1.4 cm adjacent to the distal descending colon remain unchanged. No new sites of bowel wall thickening are present. There is no lymphadenopathy. Left hip arthroplasty is noted. A few old lower thoracic and lumbar spine compression deformities are unchanged. There are no acute fractures. IMPRESSION: 1. Distended fluid-filled stomach with possible pyloric wall thickening. Although this could be transient, gastric outlet obstruction cannot be excluded. Associated fluid-filled distal esophagus with possible esophagitis. 2. Colonic diverticulosis with persistent wall thickening of the descending colon with mild adjacent stranding. This is similar to prior exam. Mild residual diverticulitis would be difficult to exclude. Stable small pericolonic fluid collections. No new fluid collections. 3. No bowel obstruction. 4. Cholelithiasis. No evidence for acute cholecystitis. ACT 112: Negative or not required by law. Electronically signed by: Graham Orozco M.D. 04/18/2022 4:[address] 04/18/22 15:[address] DOSE: 537.48 mGy.cm HISTORY: syncope TECHNIQUE: Multiaxial CT images of the head were performed without the use of intravenous contrast. Automated exposure control was utilized for this study. A dose lowering technique was utilized adhering to the principles of ALARA. Comparison: Head CT 03/10/2022. Findings: Mild mucosal thickening within the left sphenoid sinus. The mastoid air cells are clear. The calvarium and skull base are intact. There is no mass, hematoma, midline shift, acute infarct. White matter hypodensity is nonspecific but suggestive of microvascular ischemic change. The ventricles and sulci demonstrate mild age-related involutional changes. 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 Impression: No significant change compared to the prior study. No acute intracranial abn ormality. ACT 112: Negative or not required by law. Electronically signed by: Jose Schneider M.D. 04/18/2022 4:36 PM Discharge Plan Visit Data Chief Complaint: Fall Stated Complaint: FALL ED Provider: Scott Bender Discharge Problem: Syncope, Hypomagnesemia, Elevated troponin, Abnormal EKG Patient Disposition: Admitted As Inpatient Discharge Instructions Interventions: ED Discharge Assessment Last Done: 04/18/22 18:15
--- NOTE | 2022-04-18 16:56 | CT Scan Report ---
CT OF THE ABDOMEN AND PELVIS WITH CONTRAST CLINICAL HISTORY: Nausea, vomiting and diarrhea. COMPARISON STUDY: CT of the abdomen and pelvis March 10, 2022. TECHNIQUE: Following IV administration of 82 mL of Optiray, axial images of the abdomen and pelvis we re obtained from the lung bases to the proximal femurs. Images were reviewed in the axial, sagittal, and coronal planes. IV contrast was administered without complication. Automated exposure control wa s utilized for the study. A dose lowering technique was utilized adhering to the principles of ALARA . CT DOSE: 484.01 mGy.cm FINDINGS: Calcified granulomas within the liver and spleen are noted. There is hepatic steatosis. No biliary or pancreatic ductal dilatation is present. There is no pneumatosis, free air or portal venou s gas. There are gallstones within the gallbladder. No evidence for acute cholecystitis. Pancreatic g landular atrophy is noted. Bilateral renal atrophy. There is a right renal cyst. A few subcentimeter renal lesions are too small to characterize. There is no hydronephrosis. The stomach is moderately di stended and fluid-filled. The distal esophagus is also fluid-filled. Distal esophageal wall thickenin g is noted. There is apparent wall thickening at the level of the pylorus. There is no evidence for a bowel obstruction. Colonic diverticulosis is again noted with persistent wall thickening of the desc ending colon with mild adjacent stranding. This is similar to prior CT. Small pericolonic fluid colle ctions measuring up to 2.7 x 1.4 cm adjacent to the distal descending colon remain unchanged. No new sites of bowel wall thickening are present. There is no lymphadenopathy. Left hip arthroplasty is not ed. A few old lower thoracic and lumbar spine compression deformities are unchanged. There are no acu te fractures. IMPRESSION: 1. Distended fluid-filled stomach with possible pyloric wall thickening. Although this could be trans ient, gastric outlet obstruction cannot be excluded. Associated fluid-filled distal esophagus with po ssible esophagitis. 2. Colonic diverticulosis with persistent wall thickening of the descending colon with mild adjacent stranding. This is similar to prior exam. Mild residual diverticulitis would be difficult to exclude. Stable small pericolonic fluid collections. No new fluid collections. 3. No bowel obstruction. 4. Cholelithiasis. No evidence for acute cholecystitis. ACT 112: Negative or not required by law. Electronically signed by: Graham Orozco M.D. 04/18/2022 4:55 PM
--- NOTE | 2022-04-18 17:26 | History & Physical Report ---
Date of Service April 18, 2022 Assessment & Plan (1) Comfort measures only status: (2) DNI (do not intubate): (3) Fall: (4) Nausea and vomiting: (5) Hypomagnesemia: (6) JOÃO (acute kidney injury): (7) DMII (diabetes mellitus, type 2): (8) Elevated troponin: Plan This is a 76-year-old female who has significant past medical history of dementia, T2DM, CAD, HTN, HLD, overactive bladder, recurrent UTIs, anxiety, history diverticulitis who presents to ED from her personal care facility due to evaluation for fall and syncope that occurred prior to arrival. Patient presents to hospital from [facility] secondary to fall. Daughter, Kenyetta, expressed patient's wishes for DNR/DNI status. Patient also presented with POLST form which confirms comfort only status. Comfort measures only DNR/DNI Fall Nausea and vomiting Acute kidney injury Hypomagnesemia Admit to medical Gentle hydration with IV fluid 80 cc/h Repeat labs in a.m. Replete electrolytes Acute UTI UA concerning for infection Also with leukocytosis Treat empirically with IV Rocephin, await urine culture Previous urine culture from 03/08 revealed pansensitive E. coli except to Bactrim T2DM Hold outpatient oral medication Placed on Lantus/NovoLog per protocol Last A1c 6.7 on 04/10/2022 First-degree heart block Prolonged QTc Elevated troponin EKG changes During recent hospitalization patient episode of symptomatic bradycardia resolved with atropine 1 g IV Echocardiogram revealed EF 70%, grade 1 diastolic dysfunction with no significant stenosis or regurg Her beta-poncho was stopped at this time Given patient's comfort only status daughter wishes for no further life-saving meds be given including atropine We will place on medical as no need for telemetry given no intervention Will not cycle troponins or involve cardiology as again patient is comfort only and no intervention to be performed Avoid QTc prolonging meds Abnormal CT scan of abdomen pelvis Distended fluid-filled stomach with possible pyloric wall thickening. Although this could be transient, gastric outlet obstruction cannot be excluded. Associated fluid-filled distal esophagus with possible esophagitis. 2. Colonic diverticulosis with persistent wall thickening of the descending colon with mild adjacent stranding. This is similar to prior exam. Mild residual diverticulitis would be difficult to exclude. Stable small pericolonic fluid collections. No new fluid collections pt currently w/o nausea recent hospitalization for acute diverticulitis tx with Antibiotic will trial full liquid diet for now and advance as tolerated will monitor and tx symptomatically DVT ppx: SQ heparin DNR/DNI Dispo: med/surg, [facility] PCP: Devin A total of 75 minutes was spent with greater than 50% of that time personally viewing all current laboratory work and diagnostic imaging studies obtained in the ED. Additionally, I was able to view the patients past medication recon ciliation and history with direct visualization in the patients chart. Included in the time above, a portion of that time was spent assessing the patient while discussing and collaborating with specialists, if necessary, and making medical decision making on treatment plan. All of the above was collaborated with []. Please see addendum for further details. . Admission and Anticipated Discharge Date Admission Date: Date of Service: April 18, 2022 Patient seen and examined. 76-year-old male with dementia, CAD and other medical problems who was brought in from [facility] for fall, nausea and vomiting. Patient is AOx2 (person and place only). A very poor historian. Stated she does not remember fall but reported some vomiting. Denied any nausea, abd pain at this time. Stated she was hungry for something to drink. On exam, General: Elderly woman in no distress Eyes: PERRL, conjunctivae normal, not pale, anicteric sclerae, EOM intact bilaterally ENMT: External ear and nose normal, oropharynx normal Respiratory: Normal respiratory effort, no respiratory distress, lungs clear to auscultation, no crackles and no wheezes Cardiovascular: RRR S1 S2 Gastrointestinal (Abdomen): Abdomen is not distended, soft, non-tender to palpation, no guarding, normal bowel sounds Musculoskeletal: No pedal edema Neurologic: Alert and oriented to person and place only, No focal weakness, sensation grossly intact Psychiatric: Euthymic affect, cooperative Labs notable for WBC of 17, hemoglobin of 11.1, platelet of 453, sodium of 135, creatinine of 1.29, glucose of 289, serum osmole of 301, magnesium of 1.4. UA was cloudy and noted positive nitrites, 10-30wbc Head CT did not show any acute abnormality chest x-ray did not show any active abnormality CT abdomen pelvis noted distended fluid-filled stomach with possible pyloric wall thickening, signs of possible esophagitis, colonic diverticulosis similar to prior, cholelithiasis no cholecystitis. Fall Electrolyte abnormalities may be related to vomiting and dehydration. JOÃO No tenderness on abd exam. Patient asking for some food. We will do full liquid diet and advance as tolerated. Monitor for signs of bowel obstruction. Continue IV fluids for now. Possible UTI. Start empiric ceftriaxone and follow-up urine culture Troponin is mildly elevated. EKG showed TWI V1-3, prolonged QTc Reviewed findings with daughter Kenyetta Daughter stated that she would not want any further or aggressive work-up regarding that Based on this would not trend troponin Old Echo from last month reviewed Replete hypomagnesemia. 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 Primary Care Provider: [facility] This is a 76-year-old female who has significant past medical history of dementia, T2DM, CAD, HTN, HLD, overactive bladder, recurrent UTIs, anxiety, history diverticulitis who presents to ED from her personal care facility due to evaluation for fall and syncope that occurred prior to arrival. Patient is overall a poor historian. We did speak with daughter in [facility] who is adamant that patient is a DNR/DNI. POLST from facility was reviewed and she is comfort measures with limited intervention. She states her mother spends approximately 23 hours a day in bed. She will not change her diaper and therefore gets recurrent urinary tract infections. She is confused most of the time. Per prehospital report patient sustained a fall as well as report of vomiting and diarrhea. History limited from patient. Patient did not remember the fall but does complain of headache, nausea and approximately 10-15 episodes of emesis. She also reports that her bowels are black but then occasionally brown or yellow. ROS unreliable from patient. In ED patient was found to have significant elevation WBC at 17.05k, H&H 11.1 and 34.4, elevated BUN and creatinine at 24 and 1.6 with anion gap of 16, glucose 289, mag 1.4 and troponin 42.2. Her EKG did reveal new T wave inversions in anterior leads. Patient denies chest pain. Daughter wishes for symptomatic care. In ED patient received 2 g IV magnesium as well as IV fluid and IV Pepcid. Allergies Allergy/AdvReac Type Severity Reaction Status Date / Time tomato Allergy Mild Rash Verified 04/18/22 15:17 haloperidol [From Haldol] AdvReac Severe vfib Verified 04/18/22 15:17 acetaminophen [From Vicodin] AdvReac Intermediate hallucinati Verified 04/18/22 15:17 ons hydrocodone AdvReac Mild HALLUCINATI Verified 04/18/22 15:17 ONS niacin AdvReac Mild Flushing Verified 04/18/22 15:17 Home Medications Medication Instructions Recorded Confirmed Type acetaminophen 650 mg 1,300 mg PO Q8H PRN Pain 12/16/21 04/18/22 History tablet,extended release (Arthritis Pain Relief (acetaminophen) ER) clopidogrel 75 mg tablet 75 mg PO DAILY 12/16/21 04/18/22 History donepezil 10 mg tablet 10 mg PO DAILY 12/16/21 04/18/22 History duloxetine 60 mg capsule,delayed 60 mg PO DAILY 12/16/21 04/18/22 History release ezetimibe 10 mg tablet 10 mg PO DAILY 12/16/21 04/18/22 History glimepiride 1 mg tablet 1 mg PO DAILY 12/16/21 04/18/22 History oxybutynin chloride 5 mg tablet 5 mg PO DAILY 12/16/21 04/18/22 History pantoprazole 40 mg tablet,delayed 40 mg PO DAILY 12/16/21 04/18/22 History release pioglitazone 45 mg tablet 45 mg PO DAILY 12/16/21 04/18/22 History pravastatin 10 mg tablet 10 mg PO DAILY 12/16/21 04/18/22 History lisinopril 20 mg tablet 20 mg PO DAILY #30 tabs 12/20/21 04/18/22 Rx trazodone 50 mg tablet 25 mg PO QPM 03/08/22 04/18/22 History potassium chloride 10 mEq 10 meq PO BID 04/18/22 04/18/22 History tablet,extended release(part/cryst) Past Med/Surg History Medical History (Updated 04/18/22 @ 17:59 by Dionne Mcmullen PA-C) Bradycardia CAD (coronary artery disease) DMII (diabetes mellitus, type 2) HLD (hyperlipidemia) HTN (hypertension) Overactive bladder Surgical History (Updated 04/18/22 @ 17:52 by Dionne Mcmullen PA-C) History of hip replacement Family History (Updated 04/18/22 @ 17:25 by Dionne Mcmullen PA-C) Other Family history unobtainable due to patient's condition Social History Smoking Status: Unknown if ever smoked Second Hand Exposure: No; Hx Alcohol Use: No Hx Substance Use: No Preferred Language: Tajik Communication Ability: Effective Second Language Tutor Required: No Beliefs That Will Affect Care: None marital status: / Current Living Situation: Personal Care Facility Feels Safe at Home: Yes Assistive Devices: Walker Review of Systems Review of Systems: All systems reviewed & are unremarkable except as noted in HPI & below Physical Exam Physical Exam: Please refer to Dr. Greene for physical exam findings. Results & Data Results & Data ([facility]) Vital Signs (Past 12 Hours) Vital Signs Temp Pulse Resp BP Pulse Ox O2 Del Method 04/18/22 16:00 117 H 20 149/94 H 98 Room Air 04/18/22 15:45 104 H 24 151/106 H 98 Room Air 04/18/22 15:30 104 H 23 144/99 H 94 Room Air 04/18/22 15:15 105 H 22 147/96 H 92 Room Air 04/18/22 15:00 93 H 26 H 143/96 H 93 Room Air 04/18/22 14:45 114 H 17 139/88 92 Room Air 04/18/22 14:15 108 H 23 102/77 96 Room Air 04/18/22 14:29 108 H 04/18/22 14:25 93 Room Air 04/18/22 13:41 36.6 C 97 H 20 106/71 96 Room Air Diagnostic Findings Chest X-Ray 04/18/22 14:09 SINGLE VIEW CHEST CLINICAL HISTORY: Syncope FINDINGS: An AP, portable, upright chest radiograph is compared to study dated 03/08/2022. The cardiomediastinal silhouette is unremarkable. Chronic interstitial thickening is similar to previous. There is mild bibasilar scarring/atelectasis. No airspace consolidation or large pleural effusion is identified. No pneumothorax is seen. The skeletal structures are osteopenic. The bony thorax is grossly intact. Degenerative change and scoliosis is noted in the spine. IMPRESSION: No active disease in the chest. ACT 112: Negative or not required by law. Electronically signed by: Benjy Leger M.D. 04/18/2022 2:40 PM Abdomen/Pelvis CT 04/18/22 15:44 CT OF THE ABDOMEN AND PELVIS WITH CONTRAST CLINICAL HISTORY: Nausea, vomiting and diarrhea. COMPARISON STUDY: CT of the abdomen and pelvis March 10, 2022. TECHNIQUE: Following IV administration of 82 mL of Optiray, axial images of the abdomen and pelvis were obtained from the lung bases to the proximal femurs. Images were reviewed in the axial, sagittal, and coronal planes. IV contrast was administered without complication. Automated exposure control was utilized for the study. A dose lowering technique was utilized adhering to the principles of ALARA. CT DOSE: 484.01 mGy.cm FINDINGS: Calcified granulomas within the liver and spleen are noted. There is hepatic steatosis. No biliary or pancreatic ductal dilatation is present. There is no pneumatosis, free air or portal venous gas. There are gallstones within the gallbladder. No evidence for acute cholecystitis. Pancreatic glandular atrophy is noted. Bilateral renal atrophy. There is a right renal cyst. A few subcentimeter renal lesions are too small to characterize. There is no hydronephrosis. The stomach is moderately distended and fluid-filled. The distal esophagus is also fluid-filled. Distal esophageal wall thickening is noted. There is apparent wall thickening at the level of the pylorus. There is no evidence for a bowel obstruction. Colonic diverticulosis is again noted with persistent wall thickening of the descending colon with mild adjacent stranding. This is similar to prior CT. Small pericolonic fluid collections measuring up to 2.7 x 1.4 cm adjacent to the distal descending colon remain unchanged. No new sites of bowel wall thickening are present. There is no lymphadenopathy. Left hip arthroplasty is noted. A few old lower thoracic and lumbar spine compression deformities are unchanged. There are no acute fractures. IMPRESSION: 1. Distended fluid-filled stomach with possible pyloric wall thickening. Although this could be transient, gastric outlet obstruction cannot be excluded. Associated fluid-filled distal esophagus with possible esophagitis. 2. Colonic diverticulosis with persistent wall thickening of the descending colon with mild adjacent stranding. This is similar to prior exam. Mild residual diverticulitis would be difficult to exclude. Stable small pericolonic fluid collections. No new fluid collections. 3. No bowel obstruction. 4. Cholelithiasis. No evidence for acute cholecystitis. ACT 112: Negative or not required by law. Electronically signed by: Graham Orozco M.D. 04/18/2022 4:[address] 04/18/22 15:[address] DOSE: 537.48 mGy.cm HISTORY: syncope TECHNIQUE: Multiaxial CT images of the head were performed without the use of intravenous contrast. Automated exposure control was utilized for this study. A dose lowering technique was utilized adhering to the principles of ALARA. Comparison: Head CT 03/10/2022. Findings: Mild mucosal thickening within the left sphenoid sinus. The mastoid air cells are clear. The calvarium and skull base are intact. There is no mass, hematoma, midline shift, acute infarct. White matter hypodensity is nonspecific but suggestive of microvascular ischemic change. The ventricles and sulci demonstrate mild age-related involutional changes. 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 Impression: No significant change compared to the prior study. No acute intracranial abnormality. ACT 112: Negative or not required by law. Electronically signed by: Jose Schneider M.D. 04/18/2022 4:36 PM Medications Administered Chest X-Ray 04/18/22 14:09 SINGLE VIEW CHEST CLINICAL HISTORY: Syncope FINDINGS: An AP, portable, upright chest radiograph is compared to study dated 03/08/2022. The cardiomediastinal silhouette is unremarkable. Chronic interstitial thickening is similar to previous. There is mild bibasilar scarring/atelectasis. No airspace consolidation or large pleural effusion is identified. No pneumothorax is seen. The skeletal structures are osteopenic. The bony thorax is grossly intact. Degenerative change and scoliosis is noted in the spine. IMPRESSION: No active disease in the chest. ACT 112: Negative or not required by law. Electronically signed by: Benjy Leger M.D. 04/18/2022 2:40 PM Abdomen/Pelvis CT 04/18/22 15:44 CT OF THE ABDOMEN AND PELVIS WITH CONTRAST CLINICAL HISTORY: Nausea, vomiting and diarrhea. COMPARISON STUDY: CT of the abdomen and pelvis March 10, 2022. TECHNIQUE: Following IV administration of 82 mL of Optiray, axial images of the abdomen and pelvis were obtained from the lung bases to the proximal femurs. Images were reviewed in the axial, sagittal, and coronal planes. IV contrast was administered without complication. Automated exposure control was utilized for the study. A dose lowering technique was utilized adhering to the principles of ALARA. CT DOSE: 484.01 mGy.cm FINDINGS: Calcified granulomas within the liver and spleen are noted. There is hepatic steatosis. No biliary or pancreatic ductal dilatation is present. There is no pneumatosis, free air or portal venous gas. There are gallstones within the gallbladder. No evidence for acute cholecystitis. Pancreatic glandular atrophy is noted. Bilateral renal atrophy. There is a right renal cyst. A few subcentimeter renal lesions are too small to characterize. There is no hydronephrosis. The stomach is moderately distended and fluid-filled. The distal esophagus is also fluid-filled. Distal esophageal wall thickening is noted. There is apparent wall thickening at the level of the pylorus. There is no evidence for a bowel obstruction. Colonic diverticulosis is again noted with persistent wall thickening of the descending colon with mild adjacent stranding. This is similar to prior CT. Small pericolonic fluid collections measuring up to 2.7 x 1.4 cm adjacent to the distal descending colon remain unchanged. No new sites of bowel wall thickening are present. There is no lymphadenopathy. Left hip arthroplasty is noted. A few old lower thoracic and lumbar spine compression deformities are unchanged. There are no acute fractures. IMPRESSION: 1. Distended fluid-filled stomach with possible pyloric wall thickening. Although this could be transient, gastric outlet obstruction cannot be excluded. Associated fluid-filled distal esophagus with possible esophagitis. 2. Colonic diverticulosis with persistent wall thickening of the descending colon with mild adjacent stranding. This is similar to prior exam. Mild residual diverticulitis would be difficult to exclude. Stable small pericolonic fluid collections. No new fluid collections. 3. No bowel obstruction. 4. Cholelithiasis. No evidence for acute cholecystitis. ACT 112: Negative or not required by law. Electronically signed by: Graham Orozco M.D. 04/18/2022 4:[address] 04/18/22 15:[address] DOSE: 537.48 mGy.cm HISTORY: syncope TECHNIQUE: Multiaxial CT images of the head were performed without the use of intravenous contrast. Automated exposure control was utilized for this study. A dose lowering technique was utilized adhering to the principles of ALARA. Comparison: Head CT 03/10/2022. Findings: Mild mucosal thickening within the left sphenoid sinus. The mastoid air cells are clear. The calvarium and skull base are intact. There is no mass, hematoma, midline shift, acute infarct. White matter hypodensity is nonspecific but suggestive of microvascular ischemic change. The ventricles and sulci demonstrate mild age-related involutional changes. 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 Impression: No significant change compared to the prior study. No acute intracranial abnormality. ACT 112: Negative or not required by law. Electronically signed by: Jose Schneider M.D. 04/18/2022 4:36 PM ECG Rate (beats per minute): 117 Rhythm: sinus tachycardia Additional Comments: 1sts degree avb, anterior t wave inversions, qtc prolonged 588ms COVID-19 Results Results COVID-19 Adm Lab Results: RBC 3.79 M/uL (4.20-5.40) L 04/18/22 WBC 17.05 K/ul (4.8-10.8) H 04/18/22 Hgb 11.1 g/dl (12.0-16.0) L 04/18/22 Hct 34.4 % (37.0-47.0) L 04/18/22 Plt Count 453 K/uL (130-400) H 04/18/22 Neutrophils (%) (Auto) 84.5 % 04/18/22 Lymphocytes (%) (Auto) 10.0 % 04/18/22 Monocytes # (Auto) 0.76 K/uL (0.11-0.59) H 04/18/22 Eosinophils # (Auto) 0.00 K/uL (0-0.50) 04/18/22 Immature Granulocyte % (Auto) 0.8 % 04/18/22 Neutrophils # (Auto) 14.41 K/uL (1.40-6.50) H 04/18/22 Lymphocytes # (Auto) 1.70 K/uL (1.2-3.4) 04/18/22 Monocytes # (Auto) 0.76 K/uL (0.11-0.59) H 04/18/22 Eosinophils # (Auto) 0.00 K/uL (0-0.50) 04/18/22 Basophils # (Auto) 0.04 K/uL (0-0.2) 04/18/22 Immature Granulocyte # (Auto) 0.14 K/uL (0.01-0.20) 3 Na 135 mmol/L (136-145) L 04/18/22 K 3.5 mmol/L (3.5-5.1) 04/18/22 Cl 94 mmol/L (98-107) L 04/18/22 CO2 25 mmol/L (21-32) 04/18/22 Anion Gap 16 (3-11) H 04/18/22 BUN 24 mg/dl (6-23) H 04/18/22 Creatinine 1.29 mg/dl (0.6-1.2) H 04/18/22 BUN/Creatinine Ratio 18.6 (10-20) 04/18/22 Glucose Level 289 mg/dl (70-99(Fasting)) H 04/18/22 Ca 9.2 mg/dl (8.5-10.1) 04/18/22 Phosphorus Level 3.2 mg/dl (2.5-4.9) 04/18/22 Total Bilirubin 1.2 mg/dl (0.2-1.0) H 04/18/22 AST/SGOT 15 U/L (13-39) 04/18/22 ALT/SGPT 8 U/L (7-52) 04/18/22 Alkaline Phosphatase 62 U/L (34-104) 04/18/22 Total Protein 7.1 gm/dl (6.0-8.3) 04/18/22 Albumin 3.8 gm/dl (3.4-5.0) 04/18/22 Globulin 3.3 gm/dl (2.5-4.0) 04/18/22 Albumin/Globulin Ratio 1.2 (0.9-2) 04/18/22 Procalcitonin 0.12 ng/ml (0-0.5) 04/18/22 INR 1.3 (0.9-1.1) H 04/18/22 COVID-19 PCR NEGATIVE (Negative) 04/18/22 Influenza Virus Type A (PCR) Negative (Neg) 04/18/22 Influenza Virus Type B (PCR) Negative (Neg) 04/18/22 Chest X-Ray 04/18/22 Code Status & VTE Plan Code Status DNR/DNI VTE Prophylaxis Plan VTE Prophylaxis will be ordered: Yes Reason for no VTE drug order: Treatment not indicated
[2022-04-18 17:56] LABS: Appearance Urine Cloudy (Clear); Bacteria Urine Automated 4+ (Negative); Bilirubin Urine Negative (Negative); Blood Urine Negative (Negative); Color Urine Yellow; Epithelial Cell Urine Auto >30 /lpf (0-5); Glucose Urine UA 1+ (Negative); Ketones Urine Trace (Negative); Leukocyte Esterase Urine Negative (Negative); Nitrite Urine Positive (Negative); Protein Urine 3+ (Negative); RBC Urine Automated 0-4 /hpf (0-4); Specific Gravity Urine > 1.045 (1.000-1.030); Urobilinogen Urine Negative (Negative); pH Urine 6.5 (4.5-7.5)
[2022-04-18] MEDS ORDERED: MAGNESIUM SULFATE / D5W 1 GM/100 ML BAG IV ONE (18:00)
--- NOTE | 2022-04-18 18:16 | Communication Note ---
Date of Service: April 18, 2022 Patient seen and examined. 76-year-old male with dementia, CAD and other medical problems who was brought in from [facility] for fall, nausea and vomiting. Patient is AOx2 (person and place only). A very poor historian. Stated she does not remember fall but reported some vomiting. Denied any nausea, abd pain at this time. Stated she was hungry for something to drink. On exam, General: Elderly woman in no distress Eyes: PERRL, conjunctivae normal, not pale, anicteric sclerae, EOM intact bilaterally ENMT: External ear and nose normal, oropharynx normal Respiratory: Normal respiratory effort, no respiratory distress, lungs clear to auscultation, no crackles and no wheezes Cardiovascular: RRR S1 S2 Gastrointestinal (Abdomen): Abdomen is not distended, soft, non-tender to palpation, no guarding, normal bowel sounds Musculoskeletal: No pedal edema Neurologic: Alert and oriented to person and place only, No focal weakness, sensation grossly intact Psychiatric: Euthymic affect, cooperative Labs notable for WBC of 17, hemoglobin of 11.1, platelet of 453, sodium of 135, creatinine of 1.29, glucose of 289, serum osmole of 301, magnesium of 1.4. UA was cloudy and noted positive nitrites. Other UA pending. Head CT did not show any acute abnormality chest x-ray did not show any active abnormality CT abdomen pelvis noted distended fluid-filled stomach with possible pyloric wall thickening, signs of possible esophagitis, colonic diverticulosis similar to prior, cholelithiasis no cholecystitis. Fall Electrolyte abnormalities may be related to vomiting and dehydration. JOÃO No tenderness on abd exam. Patient asking for some food. We will do full liquid diet and advance as tolerated. Monitor for signs of bowel obstruction. Continue IV fluids for now. Cannot rule out UTI. Start empiric ceftriaxone and follow-up urine culture Troponin is mildly elevated. EKG showed TWI V1-3, prolonged QTc Reviewed findings with daughter Kenyetta Daughter stated that she would not want any further or aggressive work-up regarding that Based on this would not trend troponin Old Echo from last month reviewed Replete hypomagnesemia. Other plans as detailed by Dionne Mcmullen PA-C
[2022-04-18] MEDS ORDERED: cefTRIAXone SODIUM 1,000 MG in DEXTROSE 5% AD-VAN 50 ML IV SCH (18:30)
[2022-04-18] MEDS ORDERED: GLUCAGON FOR INJ 1 MG VIAL SQ PRN (19:35)
[2022-04-18] MEDS ORDERED: MAGNESIUM HYDROXIDE SUSP 30 ML UDC PO PRN (19:35)
[2022-04-18] MEDS ORDERED: POLYETHYLENE (MIRALAX) 17 GM PACK PO PRN (19:35)
[2022-04-18] MEDS ORDERED: DEXTROSE 50% 50 ML SYRINGE IV PRN (19:35)
[2022-04-18] MEDS ORDERED: ACETAMINOPHEN 325 MG TAB PO PRN (19:35)
[2022-04-18] MEDS ORDERED: GLUCOSE 40% GEL 15 GM TUBE PO PRN (19:35)
[2022-04-18] MEDS ORDERED: ALUMINUM/MAGNESIUM SUSP 30 ML UDC PO PRN (19:35)
[2022-04-18] MEDS ORDERED: GLUCOSE 10 TAB/TUBE PO PRN (19:35)
[2022-04-18] MEDS ORDERED: PROMETHAZINE HCL 6.25 MG in SODIUM CHLORIDE 0.9% 50 ML IV PRN (19:35)
[2022-04-18] MEDS ORDERED: CARBOHYDRATES FOR HYPOGLYCEMIA PO PRN (19:35)
[2022-04-18] MEDS ORDERED: INSULIN ASPART PER UNIT CHARGE SC SCH (21:00)
[2022-04-18] MEDS ORDERED: traZODone HCL 50 MG TAB PO SCH (21:00)
[2022-04-18] MEDS ORDERED: HEPARIN SOD 5,000 UNIT/0.5 ML VIAL SQ SCH (21:00)
[2022-04-18] MEDS: POTASSIUM CHLORIDE 10 MEQ TABCR PO SCH (22:11)
[2022-04-18] MEDS: LANTUS PER UNIT CHARGE SQ SCH (22:29)
[2022-04-18] MEDS ORDERED: PANTOprazole 80 MG in DEXTROSE 5% 100 ML IV ONE (22:47)
[2022-04-18] MEDS ORDERED: PROMETHAZINE HCL 6.25 MG in SODIUM CHLORIDE 0.9% 50 ML IV STA (22:48)
[2022-04-18 23:26] LABS: Hematocrit (blood only) 33.1 % (37.0-47.0); Hemoglobin 10.4 g/dl (12.0-16.0)
[2022-04-18 23:31] LABS: Gastric Occult Blood Positive (Negative); pH Gastric Fluid 4
[2022-04-19] MEDS: PANTOprazole 40 MG in DEXTROSE 5% 100 ML IV SCH ×3 (00:06→11:06)
[2022-04-19] MEDS ORDERED: Nursing to Pharmacy Communication SCH (01:30)
[2022-04-19] MEDS ORDERED: SODIUM CHLORIDE 0.9% 1000ML 1,000 ML IV SCH (02:30)
--- NOTE | 2022-04-19 03:36 | Communication Note ---
Date of Service: April 18, 2022 Patient with 2 episodes of dark brown emesis as per RN. Episodic melena at detention as per admission H&P Gastric occult blood positive. Abdominal pain not worse as per patient. AP UGIB Esophagitis/gastritis/possible gastric outlet obstruction on CT abdomen pelvis read N.p.o. IV PPI Hold Plavix and heparin subcu. Hold off on GI and Surgery consultations, prospective blood transfusion for now as per discussion with patient daughter (Ms. Kenyetta Cha) after update given over the phone.
[2022-04-19] MEDS: INSULIN ASPART PER UNIT CHARGE SC SCH ×2 (06:12→12:46)
[2022-04-19 06:55] LABS: Hematocrit (blood only) 26.5 % (37.0-47.0); Hemoglobin 8.4 g/dl (12.0-16.0); Mean Corpuscular Hemoglobin 29.2 pg (25.0-34.0); Mean Corpuscular Hgb Conc 31.7 g/dL (32.0-36.0); Platelet Count 366 K/uL (130-400); RDW Coefficient of Variation 14.5 % (11.5-14.5); RDW Standard Deviation 48.9 fL (36.4-46.3); Red Blood Count 2.88 M/uL (4.20-5.40)
[2022-04-19 06:56] LABS: Basophils # (auto) 0.05 K/uL (0-0.2); Basophils % (auto) 0.2 %; Immature Granulocytes # (auto) 0.18 K/uL (0.01-0.20); Immature Granulocytes % (auto) 0.8 %; Lymphocytes # (auto) 4.09 K/uL (1.2-3.4); Lymphocytes % (auto) 19.3 %; Monocytes # (auto) 1.36 K/uL (0.11-0.59); Monocytes % (auto) 6.4 %; Neutrophils # (auto) 15.52 K/uL (1.40-6.50); Neutrophils % (auto) 73.3 %
[2022-04-19 07:44] LABS: BUN Creatinine Ratio 36.6 (10-20); Calcium 8.4 mg/dl (8.5-10.1); Creatinine Clr Calc Pharmacy 25.8 ml/min; Est GFR (African American) 41.5 ml/min; Est GFR (Non-African American) 35.8 ml/min; Magnesium 2.5 mg/dl (1.7-2.4); Potassium 3.5 mmol/L (3.5-5.1)
[2022-04-19] MEDS ORDERED: PANTOprazole 40 MG TAB PO SCH (09:00)
[2022-04-19] MEDS ORDERED: CLOPIDOGREL BISULFATE 75 MG TAB PO SCH (09:00)
[2022-04-19] MEDS ORDERED: GLIMEPIRIDE 2 MG TAB PO SCH ×2 (09:00)
[2022-04-19] MEDS ORDERED: DULoxetine HCL 60 MG CAP PO SCH (09:00)
[2022-04-19] MEDS ORDERED: PRAVASTATIN SOD 10 MG TAB PO SCH (09:00)
[2022-04-19] MEDS ORDERED: OXYBUTYNIN CHLORIDE 5 MG TAB PO SCH (09:00)
[2022-04-19] MEDS ORDERED: DONEPEZIL HCL 10 MG TAB PO SCH (09:00)
[2022-04-19] MEDS ORDERED: EZETIMIBE 10 MG TABLET PO SCH (09:00)
[2022-04-19 09:12] LABS: Troponin I High Sensitivity 65.9 pg/ml (0-14)
[2022-04-19] MEDS: LANTUS PER UNIT CHARGE SQ SCH (09:37)
[2022-04-19] MEDS: POTASSIUM CHLORIDE 10 MEQ TABCR PO SCH (09:37)
--- NOTE | 2022-04-19 10:24 | Electrocardiogram Report ---
Test Reason : Blood Pressure : / mmHG Vent. Rate : 077 BPM Atrial Rate : 077 BPM P-R Int : 206 ms QRS Dur : 074 ms QT Int : 572 ms P-R-T Axes : 061 009 136 degrees QTc Int : 647 ms Sinus rhythm with Premature atrial complexes T wave abnormality, consider lateral ischemia Markedly Prolonged QT Abnormal ECG When compared with ECG of 18-APR-2022 14:19, Previous ECG has undetermined rhythm, needs review Criteria for Anteroseptal infarct are no longer Present T wave inversion now evident in Lateral leads Confirmed by Brennan Aguirre ([id number]) on 04/19/2022 10:24:02 AM Referred By: REFERRED SELF Confirmed By:Brennan Aguirre
--- NOTE | 2022-04-19 10:39 | Hospitalist Progress Note ---
Date of Service April 19, 2022 Assessment & Plan (1) Syncope and collapse: Plan: Reported fall wtih ?syncope at [facility] residence. Patient reported lightheadedness to ER provider. Possible UGIB as a cause vs UTI vs ACS, not exhaustive list and likely multifactorial. We are unable to get orthostatics today or evaluate how she feels clinically 2/2 hypersomnolence. Cont plan as outlined below. (2) Elevated troponin: Plan: Rising troponin in the setting of dynamic EKG changes. Patient has possible UGIB, may have active ACS, but cannot receive hepatin at this time. Patient is on a non-monitored floor at the moment and need to clarify with daughter what she would like us to do. She may developing critical illness that will end in her demise, but advised the medical team yesterday not to proceed with any aggressive treatment. No echo or cardiology consult has been placed at this time as a result. (3) Hematemesis: Plan: UGIB Esophagitis/gastritis/possible gastric outlet obstruction on CT abdomen pelvis read Hold Plavix and heparin and PPI drip started overnight Acute blood loss anemia noted and patient has clear abdominal discomfort on exam BUN is rising and leukocytosis is worsening. Waiting to hear from daughter on the plan-tried to contact her multiple times this morning. GI was initially consulted but will hold on having them evaluate her until speak with the daughter further. Cont conservative management with medications at this time. (4) Acute blood loss anemia: Plan: Likely related to UGIB as above. There may also be a dilutional component here, also. (5) JOÃO (acute kidney injury): Plan: Worsening renal failure with creatinine 1.4 on today's labwork. She is on IVF at this time. (6) Comfort measures only status: Plan: Palliative consult. (7) DNI (do not intubate): (8) Hypomagnesemia: Plan: Replace as needed (9) DMII (diabetes mellitus, type 2): Plan: Insulin coverage as needed during hospital stay. DVT proph: contraindicated in the setting of possible active bleeding DNR/DNI Dispo-uncertain at this time. I spent 60 minutes coordinating record review, discussing case with GI provider, evaluating patient, trying to connect with family multiple times, and evaluating diagnostics. [facility] and [facility]tic[facility]ated Discharge Date Admission Date: April 18, 2022 Subjective 76 yo F with dementia presents from [facility] after syncopal event. She has elevated trop and EKG findings consistent with possible ACS Daughter reported to fabrication department supervisor team that she didn't want this aggressively treated POLST reflects comfort care, but ok to use medication to treat illnesses (except no abx) Repeat trop this morning is elevated 42-->66 and EKG reflects TWI in lateral leads Dynamic EKG changes overall this admission PAtient is not lucid and is somnolent. At one point, she states that she didn't sleep overnight because she was cold, but then she fell back asleep and was unable to continue the conversation. Therefore, it is hard to tell if she is oriented or if she understands what is going on. Per H&P, daughter is in charge of her care. I called her twice this morning but LM as no answer Overnight she developed two episodes of dark brown emesis that was positive for occult blood She was placed on a PPI drip and blood thinners were held. She is withdrawing to pain when I palpate her abdomen today. Review of Systems Review of Systems: ROS could not be performed 2/2 somnolence Physical Exam Physical Exam: CONSTITUTIONAL: WNWD, vitals as above, NAD EYES: eyes closed. ENT: oral mucosa moist NECK: trachea midline RESPIRATORY: clear to auscultation bilaterally, no crackles, rales or wheezes, normal respiratory effort CARDIOVASCULAR: regular rate and rhythm, S1 and 2 heard without murmurs, gallops or rubs, no JVD, no peripheral edema CHEST: inspection of chest was normal GASTROINTESTINAL: soft, withdrawal to pain kevin in LUQ/epigastric area, nondistended MUSCULOSKELETAL: unable to evaluate 2/2 hypersomnolence. SKIN: warm and dry NEUROLOGIC: CN 2-12 grossly intact, no sensory deficit, normal cognition, normal speech, no tremor PSYCHIATRIC: hypersomnolent and unable to answer orientation questions. Results & Data Results & Data ([facility]) Laboratory Results Short CBC 04/18/22 04/18/22 04/19/22 Range/Units 14:25 23:00 05:57 WBC 17.05 H 21.20 H (4.8-10.8) K/ul Hgb 11.1 L 10.4 L 8.4 L (12.0-16.0) g/dl Hct 34.4 L 33.1 L 26.5 L (37.0-47.0) % Plt Count 453 H 366 (130-400) K/uL BMP 04/18/22 04/19/22 14:25 05:57 Sodium 135 L 131 L Potassium 3.5 3.5 Chloride 94 L 100 Carbon Dioxide 25 25 BUN 24 H 52 H D Creatinine 1.29 H D 1.42 H Glucose 289 H 128 H Calcium 9.2 8.4 L Liver Function 04/18/22 Range/Units 14:25 Total Bilirubin 1.2 H (0.2-1.0) mg/dl AST 15 (13-39) U/L ALT 8 (7-52) U/L Alkaline Phosphatase 62 (34-104) U/L Albumin 3.8 (3.4-5.0) gm/dl Urine 04/18/22 Range/Units Unknown Urine Color Yellow Urine Appearance Cloudy A (Clear) Urine pH 6.5 (4.5-7.5) Ur Specific [place] > 1.045 H (1.000-1.030) Urine Protein 3+ H (Negative) Urine Glucose (UA) 1+ H (Negative) Medications Administered Current Inpatient Medications Acetaminophen (Acetaminophen 325 Mg Tab) 650 mg PO Q4H PRN PRN Reason: pain/fever Stop: 05/18/22 19:34 Al Hydrox/Mg Hydrox/Simethicone (Aluminum/Magnesium Susp 30 Ml Udc) 30 ml PO Q6H PRN PRN Reason: Dyspepsia Stop: 05/18/22 19:34 Clopidogrel Bisulfate (Clopidogrel Bisulfate 75 Mg Tab) 75 mg PO DAILY JOLENE Stop: 05/19/22 08:59 Dextrose (Dextrose 50% 50 Ml Syringe) 25 - 50 ml IV UD PRN; Protocol PRN Reason: Hypoglycemia Protocol Stop: 05/18/22 19:34 Donepezil HCl (Donepezil Hcl 10 Mg Tab) 10 mg PO DAILY JOLENE Stop: 05/19/22 08:59 Last Admin: 04/19/22 09:36 Dose: Not Given Duloxetine HCl (Duloxetine Hcl 60 Mg Cap) 60 mg PO DAILY JOLENE Stop: 05/19/22 08:59 Last Admin: 04/19/22 09:36 Dose: Not Given Ezetimibe (Ezetimibe 10 Mg Tablet) 10 mg PO DAILY JOLENE Stop: 05/19/22 08:59 Last Admin: 04/19/22 09:36 Dose: Not Given Glucagon (Glucagon For Inj 1 Mg Vial) 1 mg SQ UD PRN; Protocol PRN Reason: Hypoglycemia Protocol Stop: 05/18/22 19:34 Glucose (Glucose 10 Tab/Tube) 4 - 8 tab PO UD PRN; Protocol PRN Reason: Hypoglycemia Treatment Stop: 05/18/22 19:34 Glucose (Glucose 40% Gel 15 Gm Tube) 15 - 30 gm PO UD PRN; Protocol PRN Reason: Hypoglycemia Protocol Stop: 05/18/22 19:34 Heparin Sodium (Porcine) (Heparin Sod 5,000 Unit/0.5 Ml Vial) 5,000 units SQ Q12 JOLENE Stop: 05/18/22 20:59 Last Admin: 04/18/22 22:09 Dose: Not Given Ceftriaxone Sodium 1,000 mg/ (Dextrose) 50 mls @ 100 mls/hr IV Q24H [facility]; Protocol Stop: 04/28/22 18:29 Last Infusion: 04/19/22 01:06 Dose: Infused Promethazine HCl 6.25 mg/ (Sodium Chloride) 50.25 mls @ 201 mls/hr IV Q6H PRN PRN Reason: Nausea And Vomiting Stop: 05/18/22 19:34 Pantoprazole Sodium 40 mg/ (Dextrose) 100 mls @ 20 mls/hr IV Q5H [facility] Stop: 05/18/22 23:29 Last Admin: 04/19/22 05:18 Dose: 8 mg/hr, 20 mls/hr Sodium Chloride (Nss 1000ml) 1,000 mls @ 75 mls/hr IV .[id number] [facility] Stop: 05/19/22 02:29 Last Admin: 04/19/22 02:44 Dose: 75 mls/hr Insulin Aspart (Insulin Aspart Per Unit) 0 units SC Q6 [facility] Stop: 05/19/22 05:59 Last Admin: 04/19/22 06:12 Dose: Not Given Insulin Glargine (Lantus Per Unit Charge) 0 - 5 units SQ BID [facility] Stop: 05/18/22 20:59 Last Admin: 04/19/22 09:37 Dose: Not Given Magnesium Hydroxide (Magnesium Hydroxide Susp 30 Ml Udc) 30 ml PO Q6H PRN PRN Reason: Constipation Stop: 05/18/22 19:34 Miscellaneous (Carbohydrates For Hypoglycemia ) 15 - 30 gm PO UD PRN PRN Reason: Hypoglycemia Protocol Stop: 05/18/22 19:34 Oxybutynin Chloride (Oxybutynin Chloride 5 Mg Tab) 5 mg PO DAILY JOLENE Stop: 05/19/22 08:59 Last Admin: 04/19/22 09:37 Dose: Not Given Polyethylene Glycol (Polyethylene (Miralax) 17 Gm Pack) 17 gm PO DAILY PRN PRN Reason: Constipation Stop: 05/18/22 19:34 Potassium Chloride (Potassium Chloride 10 Meq Tabcr) 10 meq PO BID JOLENE Stop: 05/18/22 20:59 Last Admin: 04/19/22 09:37 Dose: Not Given Pravastatin Sodium (Pravastatin Sod 10 Mg Tab) 10 mg PO DAILY JOLENE Stop: 05/19/22 08:59 Last Admin: 04/19/22 09:37 Dose: Not Given Trazodone HCl (Trazodone Hcl 50 Mg Tab) 25 mg PO QPM JOLENE Stop: 05/18/22 20:59 Last Admin: 04/18/22 22:10 Dose: Not Given
[2022-04-19] MEDS ORDERED: ACETAMINOPHEN 1,000 MG/100 ML VIAL IV PRN (12:03)
[2022-04-19] MEDS ORDERED: MoRPHine SULFATE 10 MG/0.5 ML UDP PO PRN (13:11)
[2022-04-19] MEDS: HYDROmorphone INJ 0.5 MG/0.5 ML SYR IV PRN (19:40)
[2022-04-19] MEDS: LORazepam 2 MG/1 ML VIAL IV PRN (21:20)
[2022-04-20] MEDS: HYDROmorphone INJ 0.5 MG/0.5 ML SYR IV PRN ×3 (07:32→19:22)
[2022-04-20] MEDS: LORazepam 2 MG/1 ML VIAL IV PRN ×3 (07:32→23:37)
--- NOTE | 2022-04-20 12:09 | Hospitalist Progress Note ---
Date of Service April 20, 2022 Assessment & Plan (1) Syncope and collapse: (2) Elevated troponin: (3) Hematemesis: (4) Acute blood loss anemia: (5) JOÃO (acute kidney injury): (6) Comfort measures only status: Plan: P (7) DNI (do not intubate): (8) Hypomagnesemia: (9) DMII (diabetes mellitus, type 2): Plan Presented via EMS after Staff at [facility] reported syncope and collapse. She had elevated trop and EKG findings consistent with possible ACS Initial labs reflected acute renal failure, possible UTI, which is recurrent per family, and anemia. She developed two episodes of hematemesis overnight and was placed on a PPI drip wtih plavix and heparin put on hold. No further episodes of hematuria. She was transitioned to comfort measures only status and all meds were stopped, started palliative meds Daughter reports that patient's QOL is very poor, and that she sleeps most of the day. She states that patient has a history of closing her eyes and refusing to speak wtih people. She reports mom has a long history of mental illness 2/2 personality disorder and has a h/o drug addiction. Daughter worked out with CM that she will be returning to [facility] on hospice. Cont food and fluids as desired, pain control as needed, anxiety control as needed. Her son and granddaughter were at the bedside today when I arrived and we discussed the plan above. All questions were answered to their satisfaction. Elizabeth Mondragon DO [facility] Admission and Anticipated Discharge Date Admission Date: April 18, 2022 Subjective 76 yo F with dementia presents from [facility] after syncopal event. Pt states her abdominal pain has resolved She said she is doing well "now that he is here" referring to her son sitting beside her. Then she closed her eyes and refused to answer further questions. Review of Systems Review of Systems: ROS could not be performed 2/2 somnolence Physical Exam Physical Exam: CONSTITUTIONAL: WNWD, vitals as above, NAD EYES: eyes closed. ENT: oral mucosa moist NECK: trachea midline RESPIRATORY: clear to auscultation bilaterally, no crackles, rales or wheezes, normal respiratory effort CARDIOVASCULAR: regular rate and rhythm, S1 and 2 heard without murmurs, gallops or rubs, no JVD, no peripheral edema CHEST: inspection of chest was normal GASTROINTESTINAL: soft, NT, nondistended MUSCULOSKELETAL: unable to evaluate 2/2 hypersomnolence. SKIN: warm and dry NEUROLOGIC: CN 2-12 grossly intact, no sensory deficit, normal cognition, normal speech, no tremor PSYCHIATRIC: hypersomnolent and unable to answer orientation questions. Results & Data Results & Data ([facility]) Medications Administered Current Inpatient Medications Al Hydrox/Mg Hydrox/Simethicone (Aluminum/Magnesium Susp 30 Ml Udc) 30 ml PO Q6H PRN PRN Reason: Dyspepsia Stop: 05/18/22 19:34 Hydromorphone HCl (Hydromorphone Inj 0.5 Mg/0.5 Ml Syr) 0.5 mg IV Q4H PRN PRN Reason: Pain or Respiratory Distress Stop: 05/03/22 13:10 Last Admin: 04/20/22 07:32 Dose: 0.5 mg Promethazine HCl 6.25 mg/ (Sodium Chloride) 50.25 mls @ 201 mls/hr IV Q6H PRN PRN Reason: Nausea And Vomiting Stop: 05/18/22 19:34 Acetaminophen (Ofirmev) 1,000 mg in 100 mls @ 400 mls/hr IV Q8H PRN PRN Reason: pain/fever Stop: 04/22/22 12:02 Lorazepam (Lorazepam 2 Mg/1 Ml Vial) 0.5 mg IV Q4H PRN PRN Reason: Anxiety/Agitation Stop: 05/19/22 13:10 Last Admin: 04/20/22 07:32 Dose: 0.5 mg Magnesium Hydroxide (Magnesium Hydroxide Susp 30 Ml Udc) 30 ml PO Q6H PRN PRN Reason: Constipation Stop: 05/18/22 19:34 Morphine Sulfate (Morphine Sulfate 10 Mg/0.5 Ml Udp) 5 mg PO Q3H PRN PRN Reason: Pain or Respiratory Distress Stop: 05/03/22 13:10
[2022-04-21] MEDS: HYDROmorphone INJ 0.5 MG/0.5 ML SYR IV PRN (02:46)
[2022-04-21] MEDS: LORazepam 2 MG/1 ML VIAL IV PRN (05:44)
[2022-04-21] MEDS ORDERED: HYOSCYAMINE SULFATE 0.125 MG TAB PO PRN (10:23)
[2022-04-21] MEDS ORDERED: LORazepam 0.5 MG TAB PO PRN (10:24)
--- NOTE | 2022-04-21 11:41 | Palliative Care Consultation ---
Date of Consultation April 21, 2022 Assessment & Plan (1) Nausea and vomiting: Variable. Add low dose zyprexa daily (2) Anxiety: Continue prn lorazepam (3) Confusion: With mild delirium Low dose zyprexa will address both confusion and nausea. Discussed with daughter. (4) Palliative care encounter: I spoke with her daughter, Kenyetta and reviewed medications for symptom management. She is concerned that her mother may have difficulty swallowing and not be able to take oral medications. We reviewed her medications are all either sublingual, dissolvable tablets or oral concentrate. These can be administered even if she is lethargic and unable to swallow. We reviewed goals of care with comfort focus. Kenyetta is grateful that her mother was able to make the decision for focus on comfort so that she does not have to second guess what her mother would want. She supports her mother's wishes. She expressed concern that despite POLST form, her mother was readmitted to the hospital. Mrs. Pisano will be going back to [facility] with hospice care which should help to ensure that she is able to stay there with good symptom control until her dying time. History of Present Illness Reason for Consultation: symptom management/goals of care Requesting Physician: Dr. Mondragon Attending Physician: Elizabeth Mondragon, History of Present Illness 76 yo lady with history of dementia and CAD who resides at [facility]. She had hospitalization in February with a fall and was found to have 1st degree AV block. At that time, she decided that she would not want any interventions, either medication or procedures. Her daughter, Kenyetta, was present for that discussion. A POLST form was completed for DNR/DNI with comfort measures. She subsequently had another fall and was transferred to ER for evaluation. She was admitted on 04/18. Per her wishes, the focus of her care is comfort and symptom management. She has a history of anxiety and has complained of anxiety during this admission. She has also received IV hydromorphone for pain. When asked if she is having pain, she tells me that she wouldn't call it pain but has some discomfort in her back and buttocks. She has been complaining of itching in her feet. She also tells me that she just feels uncomfortable but can't describe why. She has mild confusion and pyschomotor agitation. Per RN, she has also been complaining of discomfort with her urinary catheter. She does have a history of bladder spasms. She denies nausea currently but has had nausea with hematemesis during this admission. Allergies Allergy/AdvReac Type Severity Reaction Status Date / Time tomato Allergy Mild Rash Verified 04/18/22 15:17 haloperidol [From Haldol] AdvReac Severe vfib Verified 04/18/22 15:17 acetaminophen [From Vicodin] AdvReac Intermediate hallucinati Verified 04/18/22 15:17 ons hydrocodone AdvReac Mild HALLUCINATI Verified 04/18/22 15:17 ONS niacin AdvReac Mild Flushing Verified 04/18/22 15:17 Home Medications Medication Instructions Recorded Confirmed Type acetaminophen 650 mg 1,300 mg PO Q8H PRN Pain 12/16/21 04/18/22 History tablet,extended release (Arthritis Pain Relief (acetaminophen) ER) clopidogrel 75 mg tablet 75 mg PO DAILY 12/16/21 04/18/22 History donepezil 10 mg tablet 10 mg PO DAILY 12/16/21 04/18/22 History duloxetine 60 mg capsule,delayed 60 mg PO DAILY 12/16/21 04/18/22 History release ezetimibe 10 mg tablet 10 mg PO DAILY 12/16/21 04/18/22 History glimepiride 1 mg tablet 1 mg PO DAILY 12/16/21 04/18/22 History oxybutynin chloride 5 mg tablet 5 mg PO DAILY 12/16/21 04/18/22 History pantoprazole 40 mg tablet,delayed 40 mg PO DAILY 12/16/21 04/18/22 History release pioglitazone 45 mg tablet 45 mg PO DAILY 12/16/21 04/18/22 History pravastatin 10 mg tablet 10 mg PO DAILY 12/16/21 04/18/22 History lisinopril 20 mg tablet 20 mg PO DAILY #30 tabs 12/20/21 04/18/22 Rx trazodone 50 mg tablet 25 mg PO QPM 03/08/22 04/18/22 History potassium chloride 10 mEq 10 meq PO BID 04/18/22 04/18/22 History tablet,extended release(part/cryst) Patient History Medical History Bradycardia CAD (coronary artery disease) DMII (diabetes mellitus, type 2) HLD (hyperlipidemia) HTN (hypertension) Overactive bladder Surgical History History of hip replacement Family History Other Family history unobtainable due to patient's condition Social History Smoking Status: Never smoker Second Hand Exposure: No; Do You Dip or Chew Tobacco: No; Tobacco Cessation Education Requested by Patient: No Hx Alcohol Use: Yes Alcohol type: hard liquor Hx Substance Use: No Preferred Language: Cypriot Communication Ability: Effective Communication Ability Comment: Confused Indigo Mixer Required: No Beliefs That Will Affect Care: None and Spiritual Spiritual Healthcare Practices: Sikhism marital status: / Current Living Situation: Other Current Living Situation Comment: patient thinks she lives in [place] Other Information That Helps Us Care for You: No Feels Safe at Home: Yes Safety Concerns: Feels Safe At This Time Assistive Devices: Walker Review of Systems Review of Systems: ESAS Pain 1/3 Dyspnea 0/3 Nausea 0/3 Anxiety 1/3 Drowsiness 1/3 Physical Exam Constitutional: + altered mental status; + uncomfortable Respiratory: normal respiratory effort; no labored breathing Cardiovascular: Rate/Rhythm: regular rate and regular rhythm Gastrointestinal (Abdomen): nontender Neurologic: moves all extremities and + confused Psychiatric: Motor Behavior: + psychomotor agitation Affect: + anxious affect Results & Data ([facility]) Vital Signs (Past 12 Hours) Vital Signs Temp Pulse Resp BP Pulse Ox O2 Del Method 04/21/22 08:15 97.3 F L 95 H 16 116/66 97 Room Air PG Care Time/CCT Total # of Minutes Spent Total Time Spent: 65 Total Time Spent with Patient: Total time spent is greater than 50% in coordination of care (as documented) at patient's floor/unit and/or counseling patient: [id number] goals of care, symptom management, hospice, family education and support Coding Level of Care Code 35935 INT INP/OBS CARE 2/55MIN Diagnoses Nausea and vomiting R11.2 Anxiety F41.9 Confusion R41.0 Palliative care encounter Z51.5
--- NOTE | 2022-04-21 13:27 | Discharge Summary ---
Discharge Summary Date of Service April 21, 2022 Notes For Next Care Provider Pt now on hospice care. Palliative measures only. Medication Changes From Visit please see med rec Admission HPI Per Admitting Provider This is a 76-year-old female who has significant past medical history of dementia, T2DM, CAD, HTN, HLD, overactive bladder, recurrent UTIs, anxiety, history diverticulitis who presents to ED from her personal care facility due to evaluation for fall and syncope that occurred prior to arrival. Patient is overall a poor historian. We did speak with daughter in [facility] who is adamant that patient is a DNR/DNI. POLST from facility was reviewed and she is comfort measures with limited intervention. She states her mother spends approximately 23 hours a day in bed. She will not change her diaper and therefore gets recurrent urinary tract infections. She is confused most of the time. Per prehospital report patient sustained a fall as well as report of vomiting and diarrhea. History limited from patient. Patient did not remember the fall but does complain of headache, nausea and approximately 10-15 episodes of emesis. She also reports that her bowels are black but then occasionally brown or yellow. ROS unreliable from patient. In ED patient was found to have significant elevation WBC at 17.05k, H&H 11.1 and 34.4, elevated BUN and creatinine at 24 and 1.6 with anion gap of 16, glucose 289, mag 1.4 and troponin 42.2. Her EKG did reveal new T wave inversions in anterior leads. Patient denies chest pain. Daughter wishes for symptomatic care. In ED patient received 2 g IV magnesium as well as IV fluid and IV Pepcid. Principal Dx & Hospital Course #1 = Principal Diagnosis (1) Syncope and collapse: (2) Elevated troponin: (3) Hematemesis: (4) Acute blood loss anemia: (5) JOÃO (acute kidney injury): (6) Comfort measures only status: P (7) DNI (do not intubate): (8) Hypomagnesemia: (9) DMII (diabetes mellitus, type 2): Plan Patient is a 76-year-old female with a history of dementia, personality disorder, and mood disorder who presented after a syncopal event that occurred at [facility]. In speaking with her daughter she is a very poor quality of life and is a DNR/DNI. POLST reflected comfort care measures including no antibiotics. Upon arrival to the ER she was worked up for cause of the fall and found to have acute kidney injury, hypomagnesemia and possible UTI. IV Rocephin was started empirically and she was hydrated with IV fluids. Overnight she developed 2 episodes of hematemesis that were gastric occult blood positive. The following day her blood count fell. Her admission H&H was 11.1/34.4 and this fell to 8.4/26.5 within 1 day. Acute blood loss anemia was suspected secondary to GI bleed. She was started on Protonix therapy overnight. Upon further discussion with her daughter, this was not the wish and palliative measures were instituted without further work-up. Palliative care was consulted and assisted with a transition for patient to move into hospice care and back to [facility]. She was discharged into hospice care at [facility] on . Notably at time of discharge the patient was reporting no symptoms including resolution of abdominal pain which was present on arrival. She denied any pain and speech was intact. Follow-up with PCP as needed. Discharge Exam CONSTITUTIONAL: WNWD, vitals as above, NAD EYES: eyes closed. ENT: oral mucosa moist NECK: trachea midline RESPIRATORY: clear to auscultation bilaterally, no crackles, rales or wheezes, normal respiratory effort CARDIOVASCULAR: regular rate and rhythm, S1 and 2 heard without murmurs, gallops or rubs, no JVD, no peripheral edema CHEST: inspection of chest was normal GASTROINTESTINAL: soft, NT, nondistended MUSCULOSKELETAL: unable to evaluate 2/2 hypersomnolence. SKIN: warm and dry NEUROLOGIC: CN 2-12 grossly intact, no sensory deficit, normal cognition, normal speech, no tremor PSYCHIATRIC: hypersomnolent and unable to answer orientation questions. Updated Medication List Medication Instructions Recorded Confirmed Type acetaminophen 650 mg 1,300 mg PO Q8H PRN Pain 12/16/21 04/18/22 History tablet,extended release (Arthritis Pain Relief (acetaminophen) ER) lorazepam 0.5 mg tablet 0.5 mg PO Q4H PRN agitation #20 04/21/22 Rx tabs morphine concentrate 100 mg/5 mL 5 mg (0.25 mL) PO Q3H PRN dyspnea 04/21/22 Rx (20 mg/mL) oral solution or pain #15 mL olanzapine 5 mg disintegrating 2.5 mg PO HS #20 tabs 04/21/22 Rx tablet Hospital Stay Data Consultations 04/18/22 16:50 ED Decision to Admit Stat 04/19/22 12:14 Consult Palliative Care Routine Diagnostic Imagining Performed 04/18/22 15:44 CT abd pelvis IV con only Stat CT head/brain wo con Stat Pending Results Patient Have Any Pending Studies at Discharge: No Discharge Instructions Given to Patient (Per Discharging Provider) Please continue all medications as indicated on discharge list below. You are being discharged on Hospice and should be able to followup with them for medical questions or additional medications as needed. It was a pleasure taking care of you! Please call if you have any questions or problems. You can reach a [facility] hospitalist on duty at [facility] 24 hours a day by calling [phone]. Take care of yourself. Elizabeth Mondragon, [facility] Hospitalist Total Time Total Time Spent Total Time Spent (In Minutes): 60
[2022-04-21] MEDS ORDERED: OLANZapine ZYDIS 5 MG ORALLY DIS. TAB PO SCH (21:00)
== END 2022-04-21 14:06 | disposition hospice, inpatient (51) | DRG 951 ==
LOC: ED 13:32 → 3E 17:05 → SUATTDRO 17:05 → 3E 18:15